=== PATIENT | male | born 1950 | race Caucasian/White ===

== ENCOUNTER 2023-05-14 09:51 | Outpatient (OUT) | payer OTHER, SELFPAY ==
[2023-05-14 10:29] LABS: Basophils Absolute Auto 0.1 10^3/uL (0.0-0.1); Basophils Percent Auto 1.1 % (0.2-2.0); Eosinophils Absolute Auto 0.5 10^3/uL (0.0-0.7); Eosinophils Percent Auto 7.2 % (0.9-7.0); Hematocrit 49.5 % (42.0-54.0); Hemoglobin 16.4 g/dL (14.0-18.0); Immature Granulocytes Abs Auto 0.03 10^3/uL (0.00-0.03); Immature Granulocytes Pct Auto 0.5 % (0.0-0.5); Lymphocytes Absolute Auto 1.9 10^3/uL (1.2-3.8); Lymphocytes Percent Auto 28.4 % (20.5-60.0); Mean Corpuscular HGB Conc 33.1 g/dL (29.9-35.2); Mean Corpuscular Hemoglobin 31.5 pg (25.9-34.0); Mean Corpuscular Volume 95.2 fL (80.0-94.0); Mean Platelet Volume 10.7 fL (9.5-13.5); Monocytes Absolute Auto 0.7 10^3/uL (0.3-0.8); Monocytes Percent Auto 10.9 % (1.7-12.0); Neutrophils Absolute Auto 3.4 10^3/uL (1.4-6.5); Neutrophils Percent Auto 51.9 % (43.0-75.0); Platelet Count 198 10^3/uL (150-450); Red Cell Distribution Width 13.5 % (11.0-15.0); White Blood Count 6.5 10^3/uL (4.0-11.0)
[2023-05-14 10:40] LABS: Estimated Average Glucose 120 mg/dL; Glycohemoglobin A1C 5.8 % (4.5-6.2)
[2023-05-14 10:51] LABS: Alanine Aminotransferase 24 U/L (16-63); Albumin Globulin Ratio 0.8; Albumin Level 3.5 g/dL (3.4-5.0); Alkaline Phosphatase 100 U/L (46-116); Anion Gap 10.5; Aspartate Amino Transferase 16 U/L (15-37); BUN Creatinine Ratio 17.1; Bilirubin Direct 0.2 mg/dL (0.0-0.2); Bilirubin Total 0.7 mg/dL (0.2-1.0); Calcium 9.4 mg/dL (8.5-10.1); Carbon Dioxide 28.5 mmol/L (21.0-32.0); Chloride 105 mmol/L (98-107); Chol HDL Ratio 2.8; Cholesterol 133 mg/dL (<=200); Estimated GFR (African America 58 (>=60); Estimated GFR (Non-African Ame 48 (>=60); Globulin 4.2 g/dL; Glucose 170 mg/dL (74-106); HDL Cholesterol 47 mg/dL (40-60); LDL Cholesterol Calculated 72.2 mg/dL; Sodium 139 mmol/L (136-145); Thyroid Stimulating Hormone 0.526 uIU/mL (0.358-3.740); Total Protein 7.7 g/dL (6.4-8.2); Triglycerides 69 mg/dL (<=150); VLDL CHOLESTEROL 13.8 mg/dL
== END 2023-05-14 09:52 | disposition home or self-care (01) ==
LOC: LAB 09:57
PROVIDERS: PCP Family Medicine; Visit Provider Family Medicine
DX: I10 Essential (primary) hypertension (principal); E78.5 Hyperlipidemia, unspecified; R73.03 Prediabetes; Z12.5 Encounter for screening for malignant neoplasm of prostate; E66.9 Obesity, unspecified; Z51.81 Encounter for therapeutic drug level monitoring; Z79.899 Other long term (current) drug therapy
CPT/HCPCS: 36415; 80048; 80061; 80076; 83036; 84443; 85025; G0103

== ENCOUNTER 2023-05-26 09:33 | Outpatient (OUT) | payer OTHER, SELFPAY ==
--- NOTE | 2023-05-26 09:40 | XR_ITS ---
The [address] [address] Patient Name: ALEXIS CLARK MRN: [id number] date: 1950 Sex: M Assigned Patient Location: RAD Current Patient Location: RAD Accession/Order Number: [id number] Exam Date: 05/26/2023 09:49 Report Date: 05/26/2023 10:19 At the request of: JUVENAL LOZANO Procedure: XR chest 2V EXAM: XR chest 2V HISTORY: Correction Current Use Of Amiodarone Z79.899 COMPARISON: None. TECHNIQUE: PA and lateral views of the chest. FINDINGS: The cardiomediastinal silhouette is normal. Right middle lobe opacity. There is no pneumothorax. No pleural effusion is noted. The osseous structures are intact. XR/XR chest 2V IMPRESSION: Right middle lobe atelectasis and/or developing pneumonia. Clinical correlation is recommended. Electronically authenticated by: CYNTHIA RESENDEZ Date: 05/26/2023 10:19
== END 2023-05-26 09:34 | disposition home or self-care (01) ==
LOC: RAD 09:35
PROVIDERS: PCP Family Medicine; Visit Provider Internal Medicine Cardiovascular Disease
DX: Z79.899 Other long term (current) drug therapy (principal); Z51.81 Encounter for therapeutic drug level monitoring
CPT/HCPCS: 71046

== ENCOUNTER 2023-06-04 09:40 | Outpatient (OUT) | payer OTHER, SELFPAY ==
--- NOTE | 2023-06-04 10:19 | CA_ITS ---
Patient: ALEXIS CLARK Exam Date: 06/04/2023 : 1950 Gender:M Ordering : LIDIA CORREIA Admission #: [id number] Family : DR KADE TRUJILLO . Order #: [id number] CLICK HERE TO VIEW EXAM ECHOCARDIOGRAM REPORT PROCEDURE: CA ECHO DOPPLER COMPLETE INDICATIONS: Aortic aneurysm, h/o atrial fibrillation - ablation, pacemaker, hypertension COMPARISON: None. DESCRIPTION: COMPLETE ECHOCARDIOGRAM Real-time transthoracic echocardiography with 2D, M-mode, spectral and color flow Doppler performed. QUALITY: Technical quality was good. LEFT VENTRICLE: Normal chamber size. Moderate concentric left ventricular hypertrophy. Normal systolic function. LV EF: Normal left ventricular ejection fraction, (>55%). DIASTOLIC: Normal diastolic function. ATRIAL SEPTUM: LEFT ATRIUM: Normal chamber size. RIGHT ATRIUM: Normal chamber size. RIGHT VENTRICLE: Normal chamber size. Normal systolic function. Pacer wire present. TRICUSPID VALVE: Normal mobility and thickness. No stenosis with mild regurgitation. No evidence of pulmonary hypertension. RVSP 24 mmHg MITRAL VALVE: Normal mobility and thickness. No evidence of mitral valve stenosis. Mild mitral annular calcification. Trivial mitral regurgitation. AORTIC VALVE: Normal trileaflet appearance. No visible sclerosis. Normal leaflet mobility. No evidence of aortic valve stenosis. Mild aortic regurgitation. AORTIC ROOT: Aortic root is moderately dilated measuring 4.4 cm. Moderately dilated ascending aorta (4.9 cm). PULMONIC VALVE: Normal thickness and mobility. No stenosis. Trivial regurgitation. PERICARDIUM: No evidence of pericardial effusion. IVC: Not well visualized. PLEURA: CONCLUSION: 1. Moderate concentric left ventricular hypertrophy with normal systolic function. LVEF is 55 to 60%. 2. Normal right ventricular size with normal systolic function. 3. Mild aortic regurgitation. 4. Moderately dilated aortic root [4.4 cm] and ascending aorta [4.9 cm]. 5. Normal right-sided pressures. Adult Echocardiography Procedure Report Left Ventricle LVEDD (3.7 - 5.6 cm): 4.66 cm LVESD (2.2 - 4.0 cm): 3.54 cm LVIVS thickness (0.6 - 1.2 cm): 1.56 cm LVPW thickness (0.5 - 1.0 cm): 1.38 cm e': 0.08 m/s E - e': 4.92 LVOT Max Gradient: 2.90 mm[Hg] LVOT Area (cm2): 0.85 m/s Peak Velocity (LVOT): 0.85 m/s LVOT Diameter 2.51 cm Left Atrium LA Volume Index (2D A2C): 27.05 ml/m2 Left Atrium Systolic Dimension: 4.05 cm Mitral Valve MV E to A Ratio: 0.73 Mitral Valve A-Wave Peak Velocity: 0.56 m/s Mitral Valve E-Wave Peak Velocity: 0.40 m/s Right Ventricle Aorta AO Root Diam: 4.43 cm Ascending Ao Diam: 4.24 cm Aortic Valve AoV Area (Peak Fernando): 4.55 cm2, 4.55 cm2 Peak Velocity(Antegrade Flow): 0.93 m/s Peak Gradient(Antegrade Flow): 3.44 mm[Hg] Mean Velocity(Antegrade Flow): 0.65 m/s Mean Gradient(Antegrade Flow): 1.93 mm[Hg] Velocity Time Integral: 19.74 cm Tricuspid Valve Peak Velocity (Regurgitant Flow): 2.30 m/s, 2.24 m/s, 2.29 m/s Pulmonic Valve Peak Velocity: 1.13 m/s Peak Gradient: 5.33 mm[Hg], 4.97 mm[Hg] Right Atrium Dictated by: Wili Comer M.D. on 06/05/2023 at 18:07 Approved by: Wili Comer M.D. on 06/05/2023 at 18:12
== END 2023-06-04 09:41 | disposition home or self-care (01) ==
LOC: CARD 09:41
PROVIDERS: PCP Family Medicine; Visit Provider Nurse Practitioner
DX: I77.810 Thoracic aortic ectasia (principal); Z98.890 Other specified postprocedural states; Z86.79 Personal history of other diseases of the circulatory system; I35.1 Nonrheumatic aortic (valve) insufficiency; I51.7 Cardiomegaly
CPT/HCPCS: 93306

== ENCOUNTER 2023-07-09 07:18 | Outpatient (OUT) | payer OTHER, SELFPAY ==
--- NOTE | 2023-07-09 07:36 | CT_ITS ---
The [address] [address] Patient Name: ALEXIS CLARK MRN: [id number] date: 1950 Sex: M Assigned Patient Location: LAB Current Patient Location: LAB Accession/Order Number: [id number] Exam Date: 07/09/2023 08:00 Report Date: 07/09/2023 08:56 At the request of: NON-STAFF PHYSICIAN Procedure: CT angio chest CT angio chest, 07/09/2023 8:00 AM EST INDICATION: Ascending Aorta Dilation I77.810 COMPARISON: This study was compared to the prior x-rays of the chest dated 05/26/2023 and 07/15/2019 TECHNIQUE: Axial low-dose images of 1 millimeters are obtained from the thoracic outlet with contrast . 3-D MIP images were obtained. Dose reduction techniques were achieved by using automated exposure control and/or adjustment of mA and/or kV according to patient size and/or use of iterative reconstruction technique. FINDINGS: Left-sided cardiac device with its tips within the right atrium and right ventricle are noted. Bilateral thyroid lesions up to 1.8 cm in the left lobe. The ascending aorta at the level of pulmonary bifurcation measures 5 x 4.8 cm, the descending aorta measures 2.8 cm. The main pulmonary artery measures 2.6 cm. No abnormality of the aortic arch is noted. There is no dissection. 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 2.3 cm lesion in the right lower lobe adjacent to pleural plaques likely round atelectasis. Linear opacities within the lower lobes likely atelectasis. The central tracheobronchial tree is unremarkable. No mediastinal lymph node enlargement by size criteria is noted. No pleural or pericardial effusion is noted. There is cholelithiasis without pericholecystic fluid or wall thickening. The visualized portions of the solid abdominal organs are unremarkable. Bone: There is no suspicious osteolytic or osteoblastic lesion. Flowing osteophytes in thoracic spine suggesting of diffuse idiopathic skeletal hyperostosis. CT/CT angio chest IMPRESSION: Ascending aortic aneurysm measuring 5 cm. No evidence of dissection. 2.3 cm lung lesion in the right lower lobe adjacent to pleural plaques likely a round atelectasis. However, follow up CT in 6 months is recommended to ensure stability and confirm the diagnosis. Bilateral thyroid lesions up to 1.8 cm. Given the age of the patient and size of the nodule, follow-up with ultrasound of the thyroid is recommended per [employer]. Electronically authenticated by: PHILL MIGUEL Date: 07/09/2023 08:56
[2023-07-09 07:48] LABS: Estimated GFR (African America >60 (>=60); Estimated GFR (Non-African Ame 53 (>=60)
== END 2023-07-09 07:19 | disposition home or self-care (01) ==
PROVIDERS: PCP Family Medicine
DX: I77.810 Thoracic aortic ectasia (principal); I71.21 Aneurysm of the ascending aorta, without rupture; E07.9 Disorder of thyroid, unspecified
CPT/HCPCS: 36415; 71275; 82565; Q9967

== ENCOUNTER 2025-01-07 12:41 | Outpatient (OUT) | payer MEDICARE, SELFPAY ==
--- OUTSIDE RECORDS SUMMARY | 2025-01-07 12:59 | XMS_ITS | CCD ---
Author Organization [facility] Care Team Providers Care Bricklayer'S Assistant Name Role Phone GIORGI DAVIS Attending Unavailable BLAKE, GIORGI Admitting Unavailable NADERER, ERIC Primary Care Unavailable NADERER, ERIC Referring Unavailable BLAKE, GIORGI Admitting Unavailable BLAKE, GIORGI Attending Unavailable NADERER, ERIC Primary Care Unavailable NADERER, ERIC Referring Unavailable BLAKE, GIORGI Admitting Unavailable BLAKE, GIORGI Attending Unavailable SMITH, LADI Primary Care Unavailable SMITHLADI Referring Unavailable BLAKE, GIORGI Attending Unavailable NADERER, ERIC Primary Care Unavailable NADERER, ERIC Referring Unavailable BLAKE, GIORGI Admitting Unavailable NADERER, DR ERIC Wheeler Primary Care Unavailable FAWWASHAIKH George Attending Unavailable FAWWASHAIKH George Admitting Unavailable NADERER, DR ERIC Wheeler Primary Care Unavailable NAFISA CLEVELAND Attending Unavailable CLEVELAND, NAFISA Admitting Unavailable CLEVELAND, NAFISA Attending Unavailable CLEVELAND, NAFISA Admitting Unavailable NADERER, DR ERIC Wheeler Primary Care Unavailable NADERER, DR ERIC Wheeler Primary Care Unavailable NAFISA CLEVELAND Attending Unavailable NAFISA CLEVELAND Admitting Unavailable NADERER, DR ERIC Wheeler Primary Care Unavailable NAFISA CLEVELAND Attending Unavailable NAFISA CLEVELAND Admitting Unavailable NADERER, DR ERIC Wheeler Primary Care Unavailable NAFISA CLEVELAND Attending Unavailable NAFISA CLEVELAND Admitting Unavailable MOUKARBEL, DR LOPEZ Consulting Unavailable NADERER, DR ERIC Wheeler Primary Care Unavailable MOUKARBEL, DR LOPEZ Attending Unavailable MOUKARBEL, DR LOPEZ Admitting Unavailable ZIEBER, DR JOSHUA Goldberg Consulting Unavailable NADERER, DR ERIC Wheeler Primary Care Unavailable ROBERTO ELIZABETH Attending Unavailable GLENNROBERTO SWEENEY Admitting Unavailable GLENNROBERTO DUNAWAY Consulting Unavailable ROBERTO ELIZABETH Consulting Unavailable NADERER, DR ERIC Wheeler Primary Care Unavailable ROBERTO ELIZABETH Attending Unavailable ROBERTO ELIZABETH Admitting Unavailable MOUKARBEL, DR LOPEZ Consulting Unavailable NADERER, DR BRAUN A Primary Care Unavailable MOTREY, DR LOPEZ Attending Unavailable AARON, DR LOPEZ Admitting Unavailable NADOMAYRA, DR BRAUN A Primary Care Unavailable CRISTOFER, NAFISA Attending Unavailable CRISTOFER, NAFISA Admitting Unavailable NADERER, DR BRAUN A Primary Care Unavailable CRISTOFER, NAFISA Attending Unavailable CRISTOFER, NAFISA Admitting Unavailable NADERER, DR ERIC Wheeler Primary Care Unavailable CRISTOFER, NAFISA Attending Unavailable CRISTOFER, NAFISA Admitting Unavailable NADEREYusuf, DR ERIC Wheeler Primary Care Unavailable CIELO, Attending Unavailable CIELO, Admitting Unavailable NADERER, DR ERIC Wheeler Primary Care Unavailable FAFINESSE, Attending Unavailable SHAIKH BUCK Admitting Unavailable NADEREYusuf, DR ERIC Wheeler Primary Care Unavailable CRISTOFER, NAFISA Attending Unavailable CRISTOFER, NAFISA Admitting Unavailable Giorgi Davis MD Unavailable Eric Trujillo MD Primary Care Provider ERIC TRUJILLO Attending Unavailable GIORGI DAIVS Referring Unavailable GIORGI DAVIS Referring Unavailable Medications Current Medications Medication Drug Class(es) Dates Sig (Normalized) Sig (Original) amLODIPine 5 mg oral tablet (3 sources) Dihydropyridine Calcium Channel Luiz Start: 03-01-2024 take 1 tablet by mouth once daily amLODIPine (Norvasc) 5 MG tablet Indications: Essential (primary) hypertension (CMS/HCC) TAKE 1 TABLET BY MOUTH DAILY 90 tablet 3 03/01/2024 Active atorvastatin 40 mg oral tablet (3 sources) HMG-CoA Reductase Inhibitor Start: 03-01-2024 take 1 tablet by mouth at bedtime atorvastatin (Lipitor) 40 MG tablet Indications: Hyperlipidemia, unspecified (CMS/HCC) TAKE 1 TABLET BY MOUTH AT BEDTIME 90 tablet 3 03/01/2024 Active carvedilol 12.5 mg oral tablet (3 sources) alpha-Adrenergic Luiz, beta-Adrenergic Luiz Start: 03-01-2024 take 1 tablet by mouth twice daily carvedilol (Coreg) 12.5 MG tablet Indications: Essential (primary) hypertension (CMS/HCC) TAKE 1 TABLET BY MOUTH TWICE DAILY 180 tablet 3 03/01/2024 Active lisinopril 10 mg oral tablet (3 sources) Angiotensin Converting Enzyme Inhibitor Start: 03-01-2024 take 1 tablet by mouth once daily lisinopril 10 MG tablet Indications: Essential (primary) hypertension ([facility]) TAKE 1 TABLET BY MOUTH DAILY 90 tablet 3 03/01/2024 Active rivaroxaban 15 mg oral tablet (2 sources) Factor Xa Inhibitor Start: 11-01-2024 End: 11-01-2025 rivaroxaban (Xarelto) 15 MG tablet Take 15 mg by mouth 11/01/2024 11/01/2025 Active Problems Active Problems Problem Classification Problem Date Documented Da te Episodic/Chronic Aortic; peripheral; and visceral artery aneurysms (8 sources) Thoracic aortic ectasia; Translations: [Thoracic aortic aneurysm, without rupture] Onset: 03-22-2021 Chronic Cardiac dysrhythmias (13 sources) Unspecified atrial fibrillation; Translations: [Paroxysmal atrial fibrillation] Onset: 04-20-2021 Chronic Chronic kidney disease (4 sources) Chronic kidney disease stage 3A ; Translations: [CKD stage 3a, GFR 45-59 ml/min ([facility])] Onset: 12-29-2024 12-29-2024 Chronic Conduction disorders (2 sources) Encounter for adjustment and management of automatic implantable cardiac defibrillator; Translations: [Encounter for adjustment and management of automatic implantable cardiac defibrillator] Onset: 07-06-2024 Chronic Congestive heart failure; nonhypertensive (4 sources) Chronic systolic heart failure; Translations: [Chronic systolic (congestive) heart failure] Onset: 12-29-2024 12-29-2024 Chronic Diabetes mellitus without complication (4 sources) Prediabetes; Translations: [Prediabetes] Onset: 12-29-2024 12-29-2024 Episodic Disorders of lipid metabolism (4 sources) Dyslipidemia; Translations: [Hyperlipidemia, unspecified] Onset: 12-29-2024 12-29-2024 Chronic Essential hypertension (4 sources) Essential hypertension; Translations: [Essential (primary) hypertension] Onset: 05-26-2023 12-29-2024 Chronic Heart valve disorders (1 source) 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; Translations: [RHEUMATIC D/O AORTIC TRICUSPID VALV] Onset: 10-09-2021 Chronic Other aftercare (5 sources) Encounter for therapeutic drug level monitoring; Translations: [ENC THERAPEUTC DRUG LEVL MONITORING] Onset: 07-26-2021 Episodic Other aftercare (1 source) USP (current) use of anticoagulants; Translations: [PENITENTIARY CURRNT USE ANTICOAGULANTS] Onset: 12-24-2021 Episodic Other aftercare (4 sources) Long-term current use of drug therapy; Translations: [Other intermodal customer service (current) drug therapy] Onset: 12-29-2024 12-29-2024 Episodic Other nutritional; endocrine; and metabolic disorders (4 sources) Obesity caused by energy imbalance; Translations: [Class 1 obesity due to excess calories with serious comorbidity and body mass index (BMI) of 31.0 to 31.9 in adult] Onset: 12-29-2024 12-29-2024 Chronic Samantha-; endo-; and myocarditis; cardiomyopathy (except that caused by tuberculosis or sexually transmitted disease) (2 sources) Cardiomyopathy; Translations: [Cardiomyopathy, unspecified] Onset: 05-26-2023 12-29-2024 Chronic Past or Other Problems Problem Classification Problem Date Documented Da te Episodic/Chronic Cancer of prostate (2 sources) History of malignant neoplasm of prostate; Translations: [Personal history of malignant neoplasm of prostate] Onset: 05-26-2023 12-29-2024 Episodic Mood disorders (2 sources) Mood disorders Onset: 12-29-2024 12-29-2024 Results Test Name Value Interpretation Reference Range Facility ECHOCARDIO M/2D COMPLETEon 0 10-03-2021 ECHOCARDIO M/2D COMPLETE Patient: ALEXIS BAEZ Exam Date: 10/03/2021 : 1950 Gender:M Ordering : DR JOHN WALKER M.D. Admission #: [id number] Family : DR ERIC TRUJILLO . Order #: [id number] CLICK HERE TO VIEW EXAM ECHOCARDIOGRAM REPORT PROCEDURE: CARDIO PULMONARY ECHOCARDIO M/2D COMP INDICATIONS: Ascending aorta dilatation, Pacemaker, S/P Atrial fibrillation ablation, COMPARISON: None. DESCRIPTION: COMPLETE ECHOCARDIOGRAM Real-time transthoracic echocardiography with 2D, M-mode, spectral and color flow Doppler performed. QUALITY: Technical quality was good. 71 225# 142/90 HR 63 LEFT VENTRICLE: Normal chamber size. Proximal septal hypertrophy (sigmoid septum). LV EF: Global left ventricular systolic function is normal. The interventricular systolic function is abnormal in motion likely related to paced rhythm. Visual EF 55-60%. DIASTOLIC: Grade I diastolic dysfunction. ATRIAL SEPTUM: Inadequately seen. LEFT ATRIUM: Mild dilatation. RIGHT ATRIUM: Mild dilatation. RIGHT VENTRICLE: Moderate dilatation. Normal right ventricular systolic function. Pacer wire present. TRICUSPID VALVE: Normal mobility and thickness. No stenosis with mild regurgitation. No evidence of pulmonary hypertension. RVSP 30 mmHg MITRAL VALVE: Normal mobility and thickness. No evidence of mitral valve stenosis. Trivial mitral regurgitation. AORTIC VALVE: Normal trileaflet appearance. No evidence of aortic valve stenosis. Mild aortic regurgitation. AORTIC ROOT: Aortic sinuses are [id number] enlarged. The ascending aorta is severely enlarged at 5.0 cm, as previously seen. PULMONIC VALVE: Normal thickness and mobility. No stenosis. Trivial regurgitation. PERICARDIUM: Anterior free space; trivial effusion versus fat pad. IVC: Collapses with inspirations. IVC is normal in size. CONCLUSION: Global left ventricular systolic function is normal; visually estimated ejection fraction is 55 to 60%. Abnormal septal motion. Grade 1, mild diastolic dysfunction. Mild biatrial enlargement. Right ventricle is moderately dilated with normal systolic function. Mild tricuspid regurgitation. Mild aortic valve regurgitation. The aortic sinuses are mild to moderately enlarged. The ascending aorta is severely enlarged at 5.0 cm as previously seen. Anterior free space; trivial effusion versus fat pad. Adult Echocardiography Procedure Report Left Ventricle Left Atrium Mitral Valve Right Ventricle Aorta Aortic Valve Peak Velocity (Antegrade Flow): 1.09 m/s, 1.09 m/s AoV Area (Peak Fernando): 2.90 cm2, 2.90 cm2 Peak Velocity(Antegrade Flow): 1.09 m/s Peak Gradient(Antegrade Flow): 4.77 mm[Hg] Tricuspid Valve Peak Velocity (Regurgitant Flow): 2.38 m/s, 2.58 m/s, 2.51 m/s, 2.51 m/s Pulmonic Valve PV Max Fernando (0.6 - 0.9 m per sec): 0.96 m/s PV Max Gradient: 3.68 mm[Hg] Right Atrium Dictated by: Gisell Vidal M.D. on 10/04/2021 at 10:48 Approved by: Gisell Vidal M.D. on 10/04/2021 at 10:52 Normal [facility] Cardiovascular Lab Reporton 09-20-2021 Cardiovascular Lab Report [facility]: [id number] Physician: Giorgi Davis MD Department of Service Date: 09/20/2021 Medicine Birthdate: 1950 Division of Room #: Cardiology Adult Cardiovascular Services [address] [place] [address] Cardiovascular Laboratory Report ATRIAL FIBRILLATION ABLATION PROCEDURE NOTE DATE OF PROCEDURE: 09/20/2021 PERFORMING PHYSICIAN: Dr. Giorgi Davis CONSENT: Patient NAME OF THE PROCEDURE: Pulmonary Vein Isolation and Comprehensive EP study. INDICATIONS FOR PROCEDURE: 1. Persistent atrial fibrillation non responsive to pharmacologic therapy. PROCEDURES PERFORMED: 1. Sonosite guided venous access as noted below and images stored. 2. Comprehensive EP study and catheter ablation for persistent atrial fibrillation through the pulmonary vein isolation technique. This includes right atrial recording and pacing, His bundle recording and right ventricular recording and pacing. 3. Intracardiac EP 3D mapping. 4. Intracardiac echocardiogram 5. Left atrial and coronary sinus recording and pacing to assess ablation results. 6. Left heart pressure measurements and LV pacing and recording. 7. Induction of arrhythmia and testing of ablation results using intravenous adenosine infusion. 8. Fluroscopy. 9. Pre and Post ablation device thresholds. FLUROSCOPY: 4 minutes 36 seconds/ 72 mGy. PROCEDURE NOTE: 71-year-old gentleman with ischemic cardiomyopathy, who has a dual-chamber ICD, who was noted to have atrial fibrillation and flutter. Given the fact that he had a high rate, decision was made to continue with atrial fibrillation ablation. On the day of presentation, he was noted to be in atrial flutter. Risks, benefits and alternatives of the procedure were discussed with the patient and family who agreed to proceed. Please refer to my consult note for details of the discussion and of indications. The patient was brought to the EP lab and a procedural pause was performed identifying the patient, the procedure. GHASSAN was performed to rule out LA clot. Thereafter, we checked the atrial thresholds and at baseline the ventricular threshold was 1 V at 0.5 millisecond. Atrial threshold could not be checked because of the flutter. Both the groins were then prepared and draped. Ultrasound was used to determine the course and patency of the femoral veins on both sides and they were noted to be patent and the image stored in PACS. After infiltration with 1% lidocaine, 4 venous sheaths were placed in the right as noted below and a radial arterial line was placed by Anesthesia team. RFV: 8Fx4 ThermoCool SF Bi-Directional over SL1/ Vizigo, SL1:Pentaray, ICE catheter. 8Fx1 CS Catheter (EZ Steer) 10,000U Heparin bolus was given followed by continuous intravenous drip to target ACT around 350. An intracardiac ultrasound catheter was inserted into the right atrium to examine the right atrial anatomy, atrial septum, pulmonary vein anatomy and to monitor for pericardial effusion and guide transseptal access. At baseline, there was no pericardial effusion and no SANTOS clot. Patient was in atrial flutter. Since we noted that the patient had a dilated aortic root and the RA area was very narrow for us to maneuver towards the valve aspect, hence, I could not perform entrainment easily and I decided to proceed with ablation. Using ICE, the His and IVC junctions were marked with 3D CARTO mapping software. Vizigo sheath was brought to the right side. Ablation was performed on the CTI line starting at the tricuspid valve aspect. 30-35W was utilized and I extended the ablation from the TV to the IVC aspect. During this time, flutter terminated. lesions was given and bidirectional block was performed with medial to lateral pacing with a timing of 160ms. Differential pacing confirmed block. I proceeded to perform PVI. Esophagus was mapped using the [employer] 3D mapping software and noted to be towards the left sided veins. Double transseptal access technique was used to cross to the left side. Following the first transeptal access, which was achieved via puncture of the thinner aspect of the septum using Armando needle, Pentaray catheter was placed in the left atrium. LA pressures were noted to 18/5 mmHg at baseline and with 600ms pacing there was 2: 1 block. LV pacing revealed no VA conduction. A second transseptal access was then achieved and SL1 sheath was exchanged over a wire to 8.5F Vizigo sheath. Pulmonary vein and left atrial anatomic mapping were performed using a 3-D CARTO computer-based mapping system while atrial pacing was performed as patient had profound bradycardia. Identification of the pulmonary vein ostia was assisted by the left atrial signals on the ablation catheter, the ICE catheter and the Pentaray catheter placed in the in (more content not included)... Normal [facility] POC GLUCOSE LABon 09-20-2021 Glucose [Mass/Vol] 97 mg/dL Normal 70-100 [facility] Comment on above: Performed By: #### [id number] #### [facility] [address] [facility]. [address] PROTHROMBIN TIMEon INR Coag (PPP) [Relative time] 1.29 {INR} High 0.91-1.16 [facility] Comment on above: Result Comment: ACCC P RECOMMENDED INR FOR WARFARIN THERAPY ------ ------- CONDITION INR PROPHYLAXIS OF VENOUS THROMBOSIS 2-3 (HIGH-RISK SURGERY) TREATMENT OF VENOUS THROMBOSIS 2-3 TREATMENT OF PULMONARY EMBOLISM 2-3 PREVENTION OF SYSTEMIC EMBOLISM: 2-3 ACUTE MYOCARDIAL INFARCTION TISSUE HEART VALVES VALVULAR HEART DISEASE ATRIAL FIBRILLATION RECURRENT SYSTEMIC EMBOLISM MECHANICAL HEART VALVE 2.5-3.5 FROM: ORAL ANTICOAGULANTS. MECHANISM OF ACTION, CLINICAL EFFECTIVENESS, AND OPTIMAL THERAPEUTIC RANGE. CHEST 1995;108:231S-246S. Performed By: #### 5 [id number] #### [facility] [address] [facility] [place] [address], [facility] PT Coag (PPP) [Time] 16.1 s High 12.3-14.8 [facility] Comment on above: Result Comment: ALL RESULTS MUST BE INTERPRETED WITH RESPECT TO BLOOD DRAWING ARTIFACT OR DILUTION ERROR OF ANTICOAGULANT AT THE TIME OF SAMPLING. Performed By: #### [id number] #### [facility] [address] [facility] [place] [address], [facility] BASIC METABOLIC PANELon 05-25 Calcium [Mass/Vol] 8.8 mg/dL Normal 8.6-10.3 [facility] Comment on above: Performed By: #### 0 [id number] #### [facility] [address] [place] [address], [facility] Chloride [Moles/Vol] 105 mmol/L Normal 98-107 [facility] Comment on above: Performed By: #### 0 [id number] #### [facility] [address] [place] [address], [place] CO2 [Moles/Vol] 24 mmol/L Normal 21-31 [facility] Comment on above: Performed By: #### 0 [id number] #### [facility] [address] [place] [address], [facility] Creatinine [Mass/Vol] 1.31 mg/dL High 0.70-1.30 [facility] Comment on above: Performed By: #### 0 [id number] #### [facility] [address] [place] [address], [place] eGFR- non- 54 ml/min/1.73sq m Abnormal >60 [facility] Comment on above: Performed By: #### 0 [id number] #### [facility] [address] [place] [address], [facility] GFR/1.73 sq M.predicted among blacks MDRD (S/P/Bld) [Vol rate/Area] mL/min/{1.73_m2} Normal >60 [facility] Comment on above: Performed By: #### 0 [id number] #### [facility] [address] [place] [address], [place] Glucose [Mass/Vol] 104 mg/dL High 70-100 [facility] Comment on above: Performed By: #### 0 [id number] #### [facility] [address] [place] [address], [place] Potassium [Moles/Vol] 5.3 mmol/L High 3.5-5.1 [facility] Comment on above: Performed By: #### 0 [id number] #### [facility] [address] [place] [address], [facility] Sodium [Moles/Vol] 137 mmol/L Normal 136-145 [facility] Comment on above: Performed By: #### 0 [id number] #### [facility] [address] [place] [address], [facility] Urea nitrogen [Mass/Vol] 24 mg/dL Normal 7-25 [facility] Comment on above: Performed By: #### 0 [id number] #### [facility] [address] [place] [id number], [facility] CBC COMPLETE BLOOD COUNTon Erythrocyte distribution width (RBC) [Ratio] 13.9 % Normal 11.5-15.0 [facility] Comment on above: Performed By: #### 5 [id number] #### [facility] [address] [place] [address], [facility] Hematocrit (Bld) [Volume fraction] 50.2 % High 39.0-50.0 [facility] Comment on above: Performed By: #### 5 [id number] #### [facility] [address] [place] [address], [facility] Hemoglobin (Bld) [Mass/Vol] 17.0 g/dL Normal 13.0-17.0 [facility] Comment on above: Performed By: #### 5 [id number] #### [facility] [address] [place] [address], [facility] MCH (RBC) [Entitic mass] 31.3 pg Normal 27.0-33.0 [facility] Comment on above: Performed By: #### 5 [id number] #### [facility] [address] [place] [address], [facility] MCHC (RBC) [Mass/Vol] 33.9 g/dL Normal 32.0-35.0 [facility] Comment on above: Performed By: #### 5 [id number] #### [facility] [address] MCV (RBC) [Entitic vol] 92.3 fL Normal 82.0-98.0 [facility] Comment on above: Performed By: #### 5 [id number] #### [facility] [address] Nucleated RBC/100 WBC (Bld) [Ratio] 0 % Normal 0-0 [facility] Comment on above: Performed By: #### 5 [id number] #### [facility] [address] PLAT CNT 181 10*3/uL Normal 150-400 [facility] Comment on above: Performed By: #### 5 [id number] #### [facility] [address] RBC (Bld) [#/Vol] 5.44 10*6/uL Normal 4.20-5.70 [facility] Comment on above: Performed By: #### 5 [id number] #### [facility] [address] WBC (Bld) [#/Vol] 7.66 10*3/uL Normal 4.00-10.60 [facility] Comment on above: Performed By: #### 5 [id number] #### [facility] [address] Cardiovascular Lab Reporton 06-11-2021 Cardiovascular Lab Report [facility] [id number] Physician: Giorgi Davis MD Department of Service Date: 06/11/2021 Medicine Birthdate: 1950 Division of Room #: CC Cardiology Adult Cardiovascular Services [place] [id number] Cardiovascular Laboratory Report DIRECT CARDIOVERSION PROCEDURE NOTE Date: 06/11/2021. Type of procedure: DC Cardioversion. Performed by: Giorgi Davis MD. Informed consent: Signed by patient. Indication: Afib. Preparation and technique: 71-year-old gentleman with a history of sinus node dysfunction with a dual-chamber pacemaker placed, who was noted to be in atrial fibrillation. He was loaded on Amio and brought for cardioversion. After an informed consent was obtained following a discussion with the patient where I explained the risk and benefit of the procedure that is not limited to skin espinosa, fluid in the lungs, heart attack, stroke, or even , though that is very rare. Patches were placed in anteroposterior direction. Following sedation with Versed 4mgand fentanyl 25mcg, GHASSAN ruled put SANTOS thrombus. Cardioversion with 360 joules in a synchronized DC cardioversion, converted him to Atrial paced ventricular sensed rhythm. Plan: Continue anticoagulation. Giorgi Davis MD Cardiac Electrophysiology Electronically Signed by: Giorgi Davis MD 06/12/2021 09:10 A Giorgi Davis MD Date Dict: 06/11/2021/12:09 P/Giorgi Davis MD Date Trans: 06/11/2021 12:24 P/christine [id number] cc: Eric Trujillo M.D. [address] [facility] [address] Normal [facility] POC SARS COV2 ANTIGEN NEGATI VEon 06-11-2021 POC SARS COV2 ANTIGEN NEG Negative Normal NEGATIVE [facility] Comment on above: Result Comment: Nega tive results from patients with symptom onset beyond seven days, should be treated presumptive and confirmation with a molecular assay, if necessary, for patient management, may be performed. Negative results do not rule out SARS-CoV-2 infection and should not be used as the sole basis for treatment or patient management decisions, including infection control decisions. Negative results should be considered in the context of a patient?s recent exposures, history and the presence of clinical signs and symptoms consistent with COVID-19. The [employer] COVID-19 Ag Card is a lateral flow immunoassay intended for the qualitative detection of nucleocapsid protein antigen from SARS-CoV-2 in direct nasal swabs from individuals within the first seven days of symptom onset. Testing is limited to laboratories certified under the Clinical Laboratory Improvement Amendments of 1988 (CLIA), 42 U.S.C. ???263a, that meet the requirements to perform moderate, high or waived complexity tests. This test is authorized for use at the Point of Care (POC), i.e., in patient care settings operating under a CLIA Certificate of Waiver, Certificate of Compliance, or Certificate of Accreditation. Performed By: #### 3 [facility] #### [facility] [address] [facility]. [address] FREE T4on 04-20-2021 Free T4 [Mass/Vol] 1.05 ng/dL Normal 0.78-2.19 [facility] Comment on above: Performed By: #### F T4 #### [facility] [address], [place] [address] Marline Valle TSHon 04-20-2021 TSH 0.118 uIU/mL Critically low 0.470-4.680 [facility] Comment on above: Performed By: #### T SH #### [facility] [address], [place] [address] Marline Valle TSH RANGE SEE BELOW Normal [facility] Comment on above: Result Comment: <0.3 4 UIU/ml HYPERTHYROID 0.34-5.60 UIU/ml EUTHYROID >5.60 UIU/ml HYPOTHYROID Performed By: #### T SH #### [facility] [address], [place] [address] Marline Valle CTA CHEST WO W CONon 021 CTA CHEST WO W CON EXAMINATION: CTA NAYLA ST WO W CON HISTORY: Ectasia of thoracic aorta COMPARISON: No relevant comparison available. TECHNIQUE: Multi-planar CT images were created with IV contrast. Axial, Coronal, and Sagittal images. Dose reduction techniques were achieved by using automated exposure control and/or adjustment of mA and/or kV according to patient size and/or use of iterative reconstruction technique. 3-D reconstruction was performed on a separate workstation. FINDINGS: VASCULATURE: No pulmonary embolism or abnormal opacity. LUNGS: No visible pulmonary disease. PLEURA: Thick, dense pleural plaques along the diaphragm margins bilaterally. A few thin partially calcified pleural plaques along the left lateral chest wall. JALEN: No mass or adenopathy. MEDIASTINUM: No mass or adenopathy. CARDIAC: No enlargement, pericardial effusion, or pericardial thickening. AORTA: Enlargement of the ascending aorta, 5.0 cm in diameter. Distal aortic arch is 3.0 cm in diameter. CHEST WALL: Left thyroid lobe contains a 2.1 cm hypodense mass versus colloid cyst. Cardiac pacer within left chest wall. No axillary mass or lymphadenopathy. BONES: No bone lesion or fracture. LIMITED ABDOMEN: Numerous small stones within the noninflamed gallbladder. Limited images of the upper abdomen. OTHER: Negative. IMPRESSION: 1. Aneurysmal dilation of the ascending aorta, 5.0 cm in diameter. 2. Bilateral pleural plaques, nonspecific but typically associated with the combination of smoking and asbestos exposure. 3. Left thyroid lobe 2.1 cm hypodense nodule versus cyst. Consider ultrasound evaluation. 4. Cholelithiasis. Electronically authenticated by: JOSHUA BARBOZA Date: 2021-04-09 07:53 Normal [facility] CREATININEon 04-06-2021 Creatinine [Mass/Vol] 1.39 mg/dL Critically high 0.66-1.25 [facility] Comment on above: Performed By: #### C AGNES #### [facility] [address] [address] Marline Tori EGFR-AF [place] >60 Normal >=[address] [facility] Comment on above: Performed By: #### C AGNES #### [facility] [address], [place] [address] Marline Tori EGFR-NON AF [place] 51 mL/min/1.73m2 Critically low >=60 [facility] Comment on above: Performed By: #### C AGNES #### [facility] [address], [place] [address] Marline Tori ECHOCARDIO M/2D COMPLETEon 0 03-21-2021 ECHOCARDIO M/2D COMPLETE Patient: ALEXIS BAEZ Exam Date: 03/21/2021 : 1950 Gender:M Ordering : ROBERTO ELIZABETH Admission #: [id number] Family : DR ERIC TRUJILLO . Order #: [id number] CLICK HERE TO VIEW EXAM ECHOCARDIOGRAM REPORT PROCEDURE: CARDIO PULMONARY ECHOCARDIO M/2D COMP INDICATIONS: Dilatation of aorta, Pacemaker COMPARISON: None. DESCRIPTION: COMPLETE ECHOCARDIOGRAM Real-time transthoracic echocardiography with 2D, M-mode, spectral and color flow Doppler performed. QUALITY: Technical quality was adequate. 71 220# 124/80 HR 76 LEFT VENTRICLE: Normal chamber size. Moderate concentric left ventricular hypertrophy. Global left ventricular hypokinesis. Unable to assess diastolic function. LV EF: Mildly reduced left ventricular ejection fraction, (40-45%). DIASTOLIC: Normal diastolic function. ATRIAL SEPTUM: LEFT ATRIUM: Moderate dilatation. RIGHT ATRIUM: Mild dilatation. RIGHT VENTRICLE: Normal chamber size. Right ventricular systolic function appears borderline reduced. Pacer wire present. TRICUSPID VALVE: Normal mobility and thickness. No stenosis with mild regurgitation. No evidence of pulmonary hypertension. RVSP 25 mmHg MITRAL VALVE: Mildly thickened with normal mobility. No evidence of mitral valve stenosis. Trace mitral regurgitation. AORTIC VALVE: Normal trileaflet appearance. No evidence of aortic valve stenosis. Aortic sinuses are mildly enlarged at 4.3 cm. Ascending aorta is moderately to severely enlarged at 5.0 cm. Mild aortic regurgitation. AORTIC ROOT: PULMONIC VALVE: Normal thickness and mobility. No stenosis. Trace regurgitation. PERICARDIUM: Trace pericardial effusion. IVC: Not well visualized. PLEURA: CONCLUSION: 1. Mildly reduced left ventricular systolic function, EF 40-45%. Global hypokinesis is noted. 2. Borderline reduced right ventricular systolic function. 3. Moderately to severely dilated ascending aorta, 5.0 cm. 4. Mild aortic and tricuspid regurgitation. 5. Normal right sided pressures. 6. Trace pericardial effusion. Adult Echocardiography Procedure Report Left Ventricle Left Atrium Mitral Valve Right Ventricle Aorta Aortic Valve Peak Velocity (Antegrade Flow): 0.84 m/s AoV Area (Peak Fernando): 2.90 cm2, 2.90 cm2 Peak Gradient(Antegrade Flow): 2.81 mm[Hg] Tricuspid Valve Peak Velocity (Regurgitant Flow): 2.11 m/s, 2.36 m/s, 2.30 m/s, 2.30 m/s Peak Velocity: 0.48 m/s, 0.63 m/s Pulmonic Valve PV Max Fernando (0.6 - 0.9 m per sec): 0.80 m/s PV Max Gradient: 2.54 mm[Hg] Right Atrium Dictated by: John Walker M.D. on 03/22/2021 at 11:28 Approved by: John Walker M.D. on 03/22/2021 at 11:39 Normal [facility] Vital Signs Date Time Vital Sign Value Performing Clinician Faci lity 12-29-2024 09:31-0400 Body height 179.1 cm Eric Trujillo MD Work Phone: [facility] 12-29-2024 09:31-0400 Body mass index (BMI) [Ratio] 31.1 kg/m2 Eric Trujillo MD Work Phone: [facility] 12-29-2024 09:31-0400 Body temperature 97.5 [degF] Eric Trujillo MD Work Phone: [facility] 12-29-2024 09:31-0400 Body weight 99.79 kg Eric Trujillo MD Work Phone: [facility] 12-29-2024 09:31-0400 Diastolic blood pressure 78 mm[Hg] Eric Trujillo MD Work Phone: [facility] 12-29-2024 09:31-0400 Heart rate 76 /min Eric Trujillo MD Work Phone: [facility] 12-29-2024 09:31-0400 Respiratory rate 20 /min Eric Trujillo MD Work Phone: [facility] 12-29-2024 09:31-0400 SaO2% (BldA) [Mass fraction] 96 % Eric Trujillo MD Work Phone: [facility] 12-29-2024 09:31-0400 Systolic blood pressure 132 mm[Hg] Eric Trujillo MD Work Phone: [facility] Healthcare Encounters Encounter Date Encounter Type Care Provider Facility Start: 01-04-2025 End: 01-04-2025 ambulatory GIORGI [facility] Start: 12-29-2024 End: 12-29-2024 Bamboo flowsheet Eric Trujillo MD Work Phone: [facility] Start: 12-29-2024 End: 12-29-2024 Bamboo flowsheet Eric Trujillo MD Work Phone: [facility] Start: 12-29-2024 End: 12-29-2024 Patient encounter procedure Eric Trujillo MD Work Phone: [facility] Work Phone: Start: 12-29-2024 End: 12-29-2024 Postop follow up visit related to original px Eric Trujillo MD Work Phone: [facility] Comment on above: Medicare annual well ness visit, subsequent (Primary Dx); Prediabetes; Essential hypertension (CMS/HCC); Dyslipidemia (CMS/HCC); CKD stage 3a, GFR 45-59 ml/min (CMS/HCC); Class 1 obesity due to excess calories with serious comorbidity and body mass index (BMI) of 31.0 to 31.9 in adult; Encounter for long-term current use of medication; Chronic HFrEF (heart failure with reduced ejection fraction) (CMS/HCC); Paroxysmal atrial fibrillation (CMS/HCC) Start: 12-29-2024 End: 12-29-2024 ambulatory REIC TRUJILLO Not Available Start: 07-06-2024 End: 07-06-2024 ambulatory [facility] Start: 05-21-2022 Telephone encounter No One (Historic al) Referring Physician Comment on above: External Referrals/r esources Start: 11-23-2021 End: 12-21-[address] ERIC TRUJILLO Facility:[facility] Start: 10-23-2021 End: 11-22-[address] ERIC TRUJILLO Facility:[facility] Start: 10-03-2021 End: 10-04-[address] JOHN WALKER Facility:[facility] Start: 09-25-2021 End: 10-22-[address] ERIC TRUJILLO Facility:[facility] Start: 09-20-2021 End: 09-21-2021 ambulatory GIORGI DAVIS Facility:[facility] Start: 09-05-2021 End: 09-06-2021 ambulatory GIORGI DAVIS Facility:[facility] Start: 08-28-2021 End: 09-24-[address] ERIC TRUJILLO Facility:[facility] Start: 07-25-2021 End: 08-24-[address] ERIC TRUJILLO Facility:[facility] Start: 06-26-2021 End: 07-24-[address] ERIC TRUJILLO Facility:[facility] Start: 06-11-2021 End: 06-12-2021 ambulatory GIORGI DAVIS Facility:[facility] Start: 05-25-2021 End: 06-22-[address] ERIC TRUJILLO Facility:[facility] Start: 05-08-2021 End: 05-28-2021 ambulatory GIORGI DAVIS Facility:[facility] Start: 04-27-2021 End: 05-25-[address] ERIC TRUJILLO Facility:[facility] Start: 04-20-2021 End: 04-21-[address] JOHN WALKER Facility:[facility] Start: 04-06-2021 End: 04-07-[address] JOSHUA BARBOZA Facility:[facility] Start: 03-26-2021 End: 04-25-[address] ERIC TRUJILLO Facility:[facility] Start: 03-22-2021 End: 03-23-2021 ambulatory ROBERTO ELIZABETH Facility:[facility] Start: 02-22-2021 End: 03-25-[address] ERIC TRUJILLO Facility:[facility] Start: 01-23-2021 End: 02-22-[address] ERIC TRUJILLO Facility:[facility] Start: 12-28-2020 End: 01-23-2021 ambulatory NAFISA CLEVELAND Facility:[facility] Plan of Treatment Date Care Activity Detail Author Start: 12-29-2025 Screening for malign ant neoplasm of colon Colorectal Cancer Screening [facility] Comment on above: Postponed from 04/23 (Patient Refused) Start: 07-04-2025 End: 07-04-2025 Patient encounter procedure 07/04/2025 8:00 AM EST Office Visit [facility] [address] [place] [id number] Eric Trujillo MD [address] [place] [address] [facility] Start: 04-25-2025 Influenza vaccination Influenz a Vaccine (Season Ended) [facility] Start: 12-29-2024 End: 12-29-2025 Basic metabolic 1998 panel - Serum or Plasma Basic metabolic panel Lab Routine CKD stage 3a, GFR 45-59 ml/min (CMS/HCC) Expected: 12/29/2024 (Approximate), Expires: 12/29/2025 [facility] Comment on above: Expected: 12/29/2024 (Approximate), Expires: 12/29/2025 Start: 12-29-2024 End: 12-29-2025 CBC W Auto Differential panel - Blood CBC and differential Lab Routine Encounter for long-term current use of medication Expected: 12/29/2024 (Approximate), Expires: 12/29/2025 [facility] Comment on above: Expected: 12/29/2024 (Approximate), Expires: 12/29/2025 Start: 12-29-2024 End: 12-29-2025 Hemoglobin A1c/Hemoglobin.total in Blood Hemoglobin A1c Lab Routine Prediabetes Expected: 12/29/2024 (Approximate), Expires: 12/29/2025 [facility] Work Phone: Comment on above: Expected: 12/29/2024 (Approximate), Expires: 12/29/2025 Start: 12-29-2024 End: 12-29-2025 Hepatic function 2000 panel - Serum or Plasma Hepatic function panel Lab Routine Encounter for long-term current use of medication Expected: 12/29/2024 (Approximate), Expires: 12/29/2025 [facility] Comment on above: Expected: 12/29/2024 (Approximate), Expires: 12/29/2025 Start: 12-29-2024 End: 12-29-2025 Lipid 1996 panel - Serum or Plasma Lipid panel Lab Routine Dyslipidemia (CMS/HCC) Expected: 12/29/2024 (Approximate), Expires: 12/29/2025 [facility] Comment on above: Expected: 12/29/2024 (Approximate), Expires: 12/29/2025 Start: 12-29-2024 End: 12-29-2025 Thyrotropin [Units/volume] in Serum or Plasma TSH Lab Routine Class 1 obesity due to excess calories with serious comorbidity and body mass index (BMI) of 31.0 to 31.9 in adult Expected: 12/29/2024 (Approximate), Expires: 12/29/2025 [facility] Comment on above: Expected: 12/29/2024 (Approximate), Expires: 12/29/2025 Start: 12-29-2024 End: 12-29-2024 Patient encounter procedure 12/29/2024 9:15 AM EDT Office Visit [facility] [address] [place] [address] Eric Trujillo MD [address] [place] [address] Arrived [facility] Comment on above: Arrived Start: 06-20-2024 Screening for malign ant neoplasm of colon [facility] Start: 2002 Pneumococcal Vaccine : 65+ Years (1 of 1 - PCV) Pneumococcal Vaccine: 65+ Years (1 of 1 - PCV) [facility] Start: 1971 Pneumococcal Vaccine : 65+ Years (1 of 2 - PCV) Pneumococcal Vaccine: 65+ Years (1 of 2 - PCV) [facility] Start: 1950 Medicare Annual Wellness (AWV) Medicare Annual Wellness (AWV) [facility] Start: 1950 Screening for malign ant neoplasm of colon [facility] Healthcare Payers Date Payer Category Payer Medicare (Managed Care) [employer] M [employer] ADVANTAGE [id number] 2024 Medicare [id number] 2022 Private Health Insurance [employer] adam [id number] 2019 Unknown [id number] 1959 Unknown [id number] 1959 Unknown [id number] 1950 Unknown [id number] 2.16.840.1.169769.3.579.2 .647 1950 Unknown [id number] 2.16.840.1.518341.3.579.2 .647 1950 Unknown [id number] 2.16.840.1.581472.3.579.2 .647 1952 Unknown [id number] 2.16840.1.791742.3.579.2 .647 1950 Unknown [id number] 2.16.840.1.322720.3.579.2 .593 1952 Unknown [id number] 2.16.840.1.830477.3.579.2 .593 1952 Unknown [id number] 2.16.840.1.203455.3.579.2 .593 1952 Unknown [id number] 2.16.840.1.735608.3.579.2 .593 1952 Unknown [id number] 2.16.840.1.033862.3.579.2 .593 1952 Unknown [id number] 2.16.840.1.207336.3.579.2 .593 1952 Unknown [id number] 2.16.840.1.643158.3.579.2 .593 1952 Unknown [id number] 2.16.840.1.627214.3.579.2 .593 1952 Unknown [id number] 2.16.840.1.952835.3.579.2 .593 1952 Unknown [id number] 2.16.840.1.393746.3.579.2 .593 1952 Unknown [id number] 2.16.840.1.477871.3.579.2 .593 1952 Unknown [id number] 2.16.840.1.755708.3.579.2 .593 1952 Unknown [id number] 2.16.840.1.958532.3.579.2 .593 1952 Unknown [id number] 2.16.840.1.229965.3.579.2 .593 1952 Unknown [id number] 2.16.840.1.343558.3.579.2 .593 1952 Unknown [id number] 2.16.840.1.657928.3.579.2 .593 1950 Unknown [id number] 2.16.840.1.134181.3.579.2 .1259 Social History Date Type Detail Facility Tobacco smoking stat [facility] Tobacco smoking consumption unknown [facility] Start: 1950 Sex Assigned At Not on file [facility] Start: 12-29-2024 Gender identity Not on file [facility] Start: 12-29-2024 Tobacco smoking stat [facility] Never smoked tobacco [facility] Start: 12-29-2024 Tobacco use and exposure Smokeless t obacco non-user [facility] Start: 12-29-2024 History of Social function [facility] Functional Status Date Assessment Result Facility 12-29-2024 Patient Health Quest ionnaire 2 item (PHQ-2) [Reported] [facility] History of Present illness Narrative 12-29-2024 Eric Trujillo MD - 12/29/2024 10:27 AM Ricardo Trujillo MD - 12/29/2024 10:27 AM Ricardo Trujillo MD - 12/29/2024 10:27 AM Ricardo Trujillo MD - 12/29/2024 10:27 AM EDT Note Date & Type Note Facility 12-29-2024 History of Presen t illness Narrative Associated Problem(s): Paroxysmal atrial fibrillation (CMS/HCC) In NSR. Continue medication. Associated Problem(s): Essential hypertension (CMS/HCC) BP controlled and monitor PRN. Associated Problem(s): Chronic HFrEF (heart failure with reduced ejection fraction) (CMS/HCC) Edema stable and follow with cardiology. Associated Problem(s): Medicare annual wellness visit, subsequent Due for labs. Discussed proper diet and regular aerobic exercise. Need aerobic exercise 5-6 days a week for 30 minutes at a time. Smaller portions and limit total calories. Declined colon cancer screening. Tetanus every 10 years. Advised not to smoke. Images from the original note were not included. Subjective Patient ID: Alexis Baez is a 74 y.o. male who presents for Medicare Annual Wellness Visit Subsequent (wellness). Presents for annual wellness visit. Last seen in 2022. Overall feels well. Weight unchanged. Not active and no regular exercise. Tries to watch diet and eat healthy. Increased fruits and vegetables. Smaller portions and limits snacking. Tries to limit total daily calories. Due for labs. Not back to cardiology for over a year. History of prostate cancer treated with radiation about 20 years ago and does not want PSA. Review of Systems Constitutional: Negative for fatigue. Respiratory: Negative for cough, shortness of breath and wheezing. Cardiovascular: Negative for chest pain and palpitations. Gastrointestinal: Negative for abdominal pain, diarrhea, nausea and vomiting. Genitourinary: Negative for dysuria. Objective Physical Exam Constitutional: General: He is not in acute distress. Appearance: Normal appearance. HENT: Head: Normocephalic. Right Ear: Tympanic membrane and ear canal normal. Left Ear: Tympanic membrane and ear canal normal. Eyes: Extraocular Movements: Extraocular movements intact. Pupils: Pupils are equal, round, and reactive to light. Cardiovascular: Rate and Rhythm: Normal rate and regular rhythm. Heart sounds: No murmur heard. No friction rub. No gallop. Pulmonary: Breath sounds: Normal breath sounds. No wheezing, rhonchi or rales. Abdominal: General: Bowel sounds are normal. There is no distension. Palpations: Abdomen is soft. Tenderness: There is no abdominal tenderness. There is no guarding or rebound. Musculoskeletal: General: Normal range of motion. Left lower leg: No edema. Neurological: General: No focal deficit present. Mental Status: He is alert. Cranial Nerves: No cranial nerve deficit. Deep Tendon Reflexes: Reflexes normal. Assessment/Plan Problem List Items Addressed This Visit Essential hypertension (CMS/HCC) BP controlled and monitor PRN. Paroxysmal atrial fibrillation (CMS/HCC) In NSR. Continue medication. Prediabetes Relevant Orders Hemoglobin A1c Medicare annual wellness visit, subsequent - Primary Due for labs. Discussed proper diet and regular aerobic exercise. Need aerobic exercise 5-6 days a week for 30 minutes at a time. Smaller portions and limit total calories. Declined colon cancer screening. Tetanus every 10 years. Advised not to smoke. Chronic HFrEF (heart failure with reduced ejection fraction) (CMS/HCC) Edema stable and follow with cardiology. Dyslipidemia (CMS/HCC) Relevant Orders Lipid panel CKD stage 3a, GFR 45-59 ml/min (CMS/HCC) Relevant Orders Basic metabolic panel Encounter for long-term current use of medication Relevant Orders CBC and differential Hepatic function panel Class 1 obesity due to excess calories with serious comorbidity and body mass index (BMI) of 31.0 to 31.9 in adult Relevant Orders TSH documented in this encounter [facility] Note 05-21-2022 Telephone Encounter - Cecilia Kwon [facility] Service Spec - 05/21/2022 3:17 PM EDT Note Date & Type Note Facility 05-21-2022 Miscellaneous Notes Formattin g of this note might be different from the original. Patient: Alexis Baez Date of : 1950 Patient phone number: [phone] Referring Provider for the encounter: Giorgi Davis Requesting Provider: Reason for requesting visit (RFV/signs and symptoms/diagnosis): A Fib Person calling: rp fax Return call to: self Medical Records/Insurance Card scanned into [employer]: No Comments: NA documented in this encounter [facility] Evaluation note Note Date & Type Note Facility Evaluation note Diagnosis Medicare annual wellness visit, subsequent- Primary Prediabetes Other abnormal glucose Essential hypertension (CMS/HCC) Unspecified essential hypertension Dyslipidemia (CMS/HCC) Other and unspecified hyperlipidemia CKD stage 3a, GFR 45-59 ml/min (CMS/HCC) Class 1 obesity due to excess calories with serious comorbidity and body mass index (BMI) of 31.0 to 31.9 in adult Encounter for long-term current use of medication Chronic HFrEF (heart failure with reduced ejection fraction) (CMS/HCC) Paroxysmal atrial fibrillation (CMS/HCC) Atrial fibrillation documented in this encounter [facility] Healthcare Summary Purpose Family History No Family History Records FoundNo Family History Records FoundNo Family History Records FoundNo Family History Records Found Advance Directives No Advanced Directives Records FoundNo Advanced Directives Records FoundNo Advanced Directives Records FoundNo Advanced Directives Records Found Additional Source Comments (unrecognized sect ion and content) No Status Records FoundNo Status Records FoundNo Status Records FoundNo Status Records Found INFORMATION SOURCE (unrecogn ized section and content) DATE CREATED AUTHOR 10/24/2021 [facility] DATE CREATED AUTHOR AUTHOR'S ORGANIZ ATION 12/24/2021 [facility] DATE CREATED AUTHOR AUTHOR'S ORGANIZ ATION 12/31/2024 [facility] dical [facility] DATE CREATED AUTHOR AUTHOR'S ORGANIZ ATION 01/05/2025 [facility] Source Comments (unrecognize d section and content) In the event this informatio n is protected by the Federal Confidentiality of Alcohol and Drug Abuse Patient Records regulations: The Federal rules restrict any use of the information to criminally investigate or prosecute any alcohol or drug abuse patient.[facility] Reason for Visit (unrecogniz ed section and content) Reason Comments External Referrals/resources Reason Comments Medicare Annual Wellness Visit Subsequen t wellness Care Teams (unrecognized sec tion and content) Bricklayer'S Assistant Relationship Specialty Start Date End Date Giorgi Davis MD [address] [place] [address] Referring Cardiology 05/16/22 Bricklayer'S Assistant Relationship Specialty Start Date End Date Eric Trujillo MD [address] [place] [id number] PCP - General Family Medicine 12/29/24 Bricklayer'S Assistant Relationship Specialty Start Date End Date Eric Trujillo MD [address] [place] [address] PCP - General Family Medicine 12/29/24 FOR RECORDS PERTAINING TO PATIENTS WHO ARE OR HAVE BEEN ENROLLED IN A CHEMICAL DEPENDENCY/SUBSTANCEABUSE PROGRAM, SOME INFORMATION MAY BE OMITTED. This clinical summary was aggregated from multiple sources. Caution should be exercised in using it in the provision of clinical care. This summary normalizes information from multiple sources, and as a consequence, information in this document may materially change the coding, format and clinical context of patient data. In addition, data may be omitted in some cases. CLINICAL DECISIONS SHOULD BE BASED ON THE PRIMARY CLINICAL RECORDS. [facility] [employer] [facility]. provides no warranty or guarantee of the accuracy or completeness of information in this document.
[2025-01-07 13:22] LABS: Estimated Average Glucose 120 mg/dL; Glycohemoglobin A1C 5.8 % (4.5-6.2)
[2025-01-07 13:31] LABS: Basophils Absolute Auto 0.1 10^3/uL (0.0-0.1); Eosinophils Absolute Auto 0.3 10^3/uL (0.0-0.7); Eosinophils Percent Auto 3.6 % (0.9-7.0); Hematocrit 46.3 % (42.0-54.0); Hemoglobin 15.6 g/dL (14.0-18.0); Immature Granulocytes Abs Auto 0.04 10^3/uL (0.00-0.03); Immature Granulocytes Pct Auto 0.6 % (0.0-0.5); Lymphocytes Absolute Auto 1.5 10^3/uL (1.2-3.8); Lymphocytes Percent Auto 21.8 % (20.5-60.0); Mean Corpuscular HGB Conc 33.7 g/dL (29.9-35.2); Mean Corpuscular Hemoglobin 31.3 pg (25.9-34.0); Mean Corpuscular Volume 92.8 fL (80.0-94.0); Mean Platelet Volume 10.2 fL (9.5-13.5); Monocytes Percent Auto 14.3 % (1.7-12.0); Neutrophils Percent Auto 58.7 % (43.0-75.0); Platelet Count 190 10^3/uL (150-450); Red Blood Count 4.99 10^6/uL (4.70-6.10); Red Cell Distribution Width 13.6 % (11.0-15.0); White Blood Count 6.9 10^3/uL (4.0-11.0)
[2025-01-07 14:12] LABS: Alanine Aminotransferase 17 U/L (16-63); Albumin Globulin Ratio 0.8; Albumin Level 3.4 g/dL (3.4-5.0); Alkaline Phosphatase 119 U/L (46-116); Anion Gap 7.3; Aspartate Amino Transferase 16 U/L (15-37); BUN Creatinine Ratio 12.3; Bilirubin Direct 0.2 mg/dL (0.0-0.2); Bilirubin Total 0.8 mg/dL (0.2-1.0); Calcium 8.9 mg/dL (8.5-10.1); Carbon Dioxide 29.8 mmol/L (21.0-32.0); Chloride 105 mmol/L (98-107); Chol HDL Ratio 2.2; Cholesterol 119 mg/dL (<=200); Estimated GFR (African America >60 (>=60 mL/min/1.73m^2); Estimated GFR (Non-African Ame 54 (>=60 mL/min/1.73m^2); Globulin 4.2 g/dL; Glucose 109 mg/dL (74-106); HDL Cholesterol 54 mg/dL (40-60); LDL Cholesterol Calculated 56.2 mg/dL; Potassium 4.1 mmol/L (3.5-5.1); Sodium 138 mmol/L (136-145); Thyroid Stimulating Hormone 0.537 uIU/mL (0.358-3.740); Total Protein 7.6 g/dL (6.4-8.2); Triglycerides 44 mg/dL (<=150); VLDL CHOLESTEROL 8.8 mg/dL
== END 2025-01-07 12:42 | disposition home or self-care (01) ==
LOC: LAB 12:43
PROVIDERS: PCP Family Medicine; Visit Provider Family Medicine
DX: R73.03 Prediabetes (principal); N18.31 Chronic kidney disease, stage 3a; Z79.899 Other long term (current) drug therapy; E78.5 Hyperlipidemia, unspecified; E66.811 Obesity, class 1; E66.09 Other obesity due to excess calories; Z68.31 Body mass index [BMI] 31.0-31.9, adult
CPT/HCPCS: 36415; 80048; 80061; 80076; 83036; 84443; 85025

== ENCOUNTER 2025-02-04 08:34 | Outpatient (OUT) | payer MEDICARE, SELFPAY ==
--- OUTSIDE RECORDS SUMMARY | 2025-01-27 09:20 | XMS_ITS | Encounter Summary ---
Author Organization [facility] Address [address] [place] [address] Care Team Providers Care Real Time Operator Name Role Phone Eric Pittman MD Primary Care Provider [phone] Reason for Referral * Imaging (Routine) - Pending Review Specialty Diagnoses / Procedures Referred By Az alexander Referred To Contact Cardiology Diagnoses Aneurysm of ascending 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 Chronic systolic heart failure (CMS/HCC) Procedures Transthoracic echo (TTE) complete Ligia Grayson CNP [address] [place] [address] Phone: tel: fax: Referral ID Status Reason Start Date Expiration Date Visits Requested Visits Authorized [id number] Pending Review Perform Procedure 01/27/2025 01/27/2026 1 1 Reason for Visit * Reason Comments Hypertension Congestive Heart Failure Aortic Aneurysm Encounter Details Date Type Department Care Team (Late st Contact Info) Description 01/27/2025 9:20 AM EDT Office Visit [facility] [address] [place] [id number] Ligia Grayson CNP [address] [place] [address] Aneurysm of ascending 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 (Primary Dx); Chronic systolic heart failure (CMS/HCC); Paroxysmal atrial fibrillation (CMS/HCC); History of radiofrequency ablation (RFA) for complex left atrial arrhythmia; Benign hypertensive heart disease with heart failure (CMS/HCC); SSS (sick sinus syndrome) (CMS/HCC); ICD (implantable cardioverter-defibrill ator) in place; Orthostatic hypotension Social History Tobacco Use Types Packs/Day Years Used Date Smoking Tobacco: Never Passive Smoke Exposure: Never Smokeless Tobacco: Never Alcohol Use Standard Drinks/Week Comments Yes 12 (1 standard drink = 0.6 oz pu re alcohol) PHQ-2 Answer Date Recorded Patient Health Questionnaire-2 Score 0 06/24/2023 [place] Safety & Environment Answer Date Rec orded Fear of Current or Ex-Partner Not on file Emotionally Abused Not on file 10/16/2023 Physically Abused Not on file 10/16/2023 Sexually Abused Not on file 10/16/2023 Physically or Sexually Abused Not on file Sex and Gender Information Value Date Recorded Sex Assigned at Not on file Legal Sex Male 11:39 PM EDT Gender Identity Not on file Sexual Orientation Not on file documented as of this encounter Last Filed Vital Signs Vital Sign Reading Time Taken Comments Blood Pressure 130/90 01/27/2025 9:17 AM EDT Pulse 72 01/27/2025 9:17 AM EDT Temperature - - Respiratory Rate - - Oxygen Saturation 95% 01/27/2025 9:17 AM EDT Inhaled Oxygen Concentration - - Weight 101 kg (223 lb) 01/27/2025 9:17 AM EDT Height 177.8 cm (5' 10 ) 01/27/2025 9:17 AM EDT Body Mass Index 32 01/27/2025 9:17 AM EDT documented in this encounter Progress Notes * Marci Pantoja MA - 01/27/2025 9:20 AM EDT Patient is here today for a 1 year follow up. Patient states he has no cardiac complaints or symptoms. Patient states he feels good. Review of Systems Constitutional: Negative. * Ligia Grayson CNP - 01/27/2025 9:20 AM EDT Images from the original note were not included. Cardiovascular Medicine [facility] SUBJECTIVE Chief Complaint Patient presents with Hypertension Congestive Heart Failure Aortic Aneurysm Danny Baez is a 74 y.o. male here for follow-up. PMHx: HFrEF, NICM, atrial fibrillation failed cardioversion and ICD placed at this time d/t pauses (amio stopped d/t side effects), CKD stage III, HTN HPI 01/27/2025 He states he feels well. No changes since last seen. He notes he has not seen CT surgery since we last saw him. Denies c/o CP, dyspnea, orthopnea, PND, LE edema, dizziness/LH, palpitations, syncope. 12/16/23 Patient here for 6 mo follow up persistent afib, systolic heart failure, ascending aortic dilatation, and hypertension. Had echo after last visit in May 2023. Device was interrogated in the office last week. Patient had cancer removed from his face recently. Had CT in Jun [address] surgery but he hasn't seen them in the office to review this. States he was never called by them to review resulteither. Denies chest pain, SOB, palpitations, and bleeding on Xarelto. Gets lightheaded upon standing. 12/16/23 He had positive orthostatic blood pressure today. He denies any changes since last seen. Denies any new cardiac complaints. 05/26/23: patient doing well with no complaints of chest pain, shortness of breath, LE edema, palpitations, lightness, dizziness. Patient was stopped on amiodarone about a year ago and has been doing well. His last device check in October 2022 did not show any episodes of an arrhythmia and is pending a newdevice check this month discussed with patient concern for ascending aortic aneurysm given past echo showing 5 cm, discussed with patient we will get repeat echocardiogram referral to CT surgery as he was previously referred but did not follow through with appt that was scheduled 11/22/22 HPI: patient had a device check today and reveals no episodes of atrial fibrillation. He is doing well. otherwise Prior HPI: Danny aBez is a 73 y.o. year old with past medical history of congestive heart failure s/p ICD, atrial fibrillation, hypertension, prostate cancer had previously been known to have an ejection fraction of 25% with global hypokinesis he was initially given an a GHASSAN cardioversion by Dr. Salgado which was unsuccessful and subsequently had a cardiac cath performed which showed normal coronaries without any evidence of ICD during the admission in 2015 he was subsequently taken for anICD placement by Dr. Washington. Since then he has had recovery of his ejection fraction but of late has noted that his EF has been become more persistent especially since August 2020. He has noticed and states that he was taken off amiodarone by Dr. BRUCE due to adverse effects of amiodarone with regardto liver function Pt is s/p DCCV on 06/11/21 and is back on atrial flutter with Vpacing/ naknek conducntion. He underwent PVI+ CTI on 09/20/21. He is doing well and repeat ECHO reveals EF to be normal. Aortic size is 5 cms. EP Study 09/20/21: PVI POST PROCEDURE DIAGNOSIS 1. Persistent atrial fibrillation s/p PVI ([facility]) 2. Atrial flutter s/p CTI ablation 3. EP study revealing no VA conduction. 4. No inducible arrhythmia with Adenosine. 5. High normal filling pressures. Patient Active Problem List Diagnosis Ascending aorta dilatation Cardiomyopathy (CMS/HCC) Dyspnea Essential hypertension Hypertensive disorder Malignant tumor of prostate (CMS/HCC) Paroxysmal atrial fibrillation (CMS/HCC) Systolic heart failure (CMS/HCC) History of radiofrequency ablation (RFA) for complex left atrial arrhythmia Orthostatic hypotension ICD (implantable cardioverter-defibrillator) in place SSS (sick sinus syndrome) (CMS/HCC) CKD stage 3a, GFR 45-59 ml/min (CMS/HCC) Class 1 obesity due to excess calories with serious comorbidity and body mass index (BMI) of 31.0 to 31.9 in adult Dyslipidemia Encounter for long-term current use of medication History of prostate cancer Medicare annual wellness visit, subsequent Prediabetes Past Medical History: Diagnosis Date Aneurysm Atrial fibrillation (CMS/HCC) CHF (congestive heart failure) (CMS/HCC) Hypertension Family History Problem Relation Name Age of Onset Hypertension Father Heart failure Father Prostate cancer Father Hypertension Sister Social History Tobacco Use Smoking status: Never Passive exposure: Never Smokeless tobacco: Never Substance Use Topics Alcohol use: Yes Alcohol/week: 12.0 standard drinks of alcohol Types: 12 Cans of beer per week Drug use: Never No Known Allergies OBJECTIVE Visit Vitals BP 130/90 (BP Location: Left arm, Patient Position: Sitting) Pulse 72 Ht 1.778 m (5' 10 ) Wt 101 kg (223 lb) SpO2 95% BMI 32.00 kg/m?? Smoking Status Never BSA 2.23 m?? Medications: Current Outpatient Medications: amLODIPine (Norvasc) 5 mg tablet, amlodipine 5 mg tablet TAKE 1 TABLET BY MOUTH DAILY, Disp: , Rfl: atorvastatin (Lipitor) 40 mg tablet, atorvastatin 40 mg tablet TAKE 1 TABLET BY MOUTH AT BEDTIME, Disp: , Rfl: carvedilol (Coreg) 12.5 mg tablet, carvedilol 12.5 mg tablet TAKE 1 TABLET BY MOUTH TWICE DAILY, Disp: , Rfl: lisinopril 10 mg tablet, lisinopril 10 mg tablet TAKE 1 TABLET BY MOUTH DAILY, Disp: , Rfl: rivaroxaban (Xarelto) 15 mg tablet, Take 1 tablet (15 mg) by mouth daily with evening meal. Take with food., Disp: 90 tablet, Rfl: 3 Physical Exam Constitutional: Appearance: Normal appearance. He is normal weight. HENT: Head: Normocephalic and atraumatic. Right Ear: External ear normal. Left Ear: External ear normal. Eyes: Extraocular Movements: Extraocular movements intact. Pupils: Pupils are equal, round, and reactive to light. Neck: Vascular: No carotid bruit. Cardiovascular: Rate and Rhythm: Normal rate and regular rhythm. Pulses: Normal pulses. Heart sounds: Normal heart sounds. Pulmonary: Effort: Pulmonary effort is normal. Breath sounds: Normal breath sounds. Abdominal: General: Bowel sounds are normal. Palpations: Abdomen is soft. Musculoskeletal: General: Normal range of motion. Cervical back: Neck supple. Right lower leg: No edema. Left lower leg: No edema. Skin: General: Skin is warm and dry. Neurological: General: No focal deficit present. Mental Status: He is alert and oriented to person, place, and time. Psychiatric: Mood and Affect: Mood normal. Behavior: Behavior normal. Thought Content: Thought content normal. Judgment: Judgment normal. Labs: Legacy Encounter on 09/20/2021 Component Date Value Ref Range Status Ventricular Rate 09/20/2021 61 BPM Final Atrial Rate 09/20/2021 61 BPM Final ME Interval 09/20/2021 308 ms Final QRS DURATION 09/20/2021 118 ms Final QT Interval 09/20/2021 482 ms Final QTC CALCULATION(BAZETT) 09/20/2021 485 ms Final P Humble 09/20/2021 38 degrees Final R-Humble 09/20/2021 12 degrees Final T Wave Humble 09/20/2021 2 degrees Final Diagnosis 09/20/2021 Final Value:Sinus rhythm with 1st degree A-V block Intra-ventricular conduction delay ST & T wave abnormality, consider anterolateral ischemia Prolonged QT Abnormal ECG When compared with ECG of 20-SEP-2021 07:22, (unconfirmed) Sinus rhythm has replaced Electronic atrial pacemaker Confirmed by IZABEL MCKEON ([id number]) on 09/20/2021 5:35:07 PM No results found for: EXTCMP , BMPR1A , CBCDIF , BNP , LASAP , RED 01/07/2025 Hgb 15.6, BUN 16, K 4.1, Na 138, eGFR 54, AST 16, ALT 17 Chol 119, LDL 56, HDL 54, trig 44 TSH 0.537 Testing/Procedures: EKG: EKG 05/14/2022 SR 08/11/2017 shows a paced ventricular sensed rhythm 09/27/2015 shows atrial fibrillation with demand pacing 09/18/2015 shows atrial fibrillation with naknek conduction Device check 12/09/2023: normal functioning device, no events Device check performed on 2022 shows normal device function with no atrial fibrillation seen Device check performed on 10/05/2021 reveals no episodes of mode switches with stable lead function said good thresholds. Device check from 04/20/2021 shows [employer] dual-chamber ICD with evidence of high atrial burden 97%of the time in A. fib since August 2020 with ventricular pacing occurring 53% of the time Echo: 06/04/2023 Echocardiogram 10/03/2021 shows ejection fraction of 55 to 60% with grade 1 diastolic dysfunction mild biatrial enlargement with mild aortic valve regurgitation with the ascending aorta severely enlarged at 5 cm. 03/01/2021 shows reduction of ejection fraction to 40 to 45% with moderate dilatation of the left atrium mild dilatation of the right atrium deviation the aorta is moderate to severely enlarged 5 cm. 04/19/2020 shows EF of 60% with a left atrium is mildly enlarged and mild aortic valve regurgitation 04/15/2019 shows ejection fraction of 55% with a sending aorta and root dilatation 07/10/2018 EF is 50 to 55% 11/07/2015 EF was 40 to 45% 09/18/2015 EF was 25% Stress test: Coronary angiogram: Cardiac cath 09/20/[address] BRUCE HEMODYNAMICS: RA: 10. RV: 26/8, 10. PA: 28/16, mean 21. Pulmonary capillary wedge pressure 16. AO: 119/89, mean 102. Cardiac output: 6.24. Cardiac index: 2.99. PA sat: 65%. AO sat: 87%. CORONARY ANGIOGRAPHY: This is a right-dominant circulation. Left main: This arises from the left coronary cusp. It bifurcates intoleft anterior descending and circumflex vessels. The left main has minimaluminal irregularities. Left anterior descending: This has minimal luminal irregularities.Circumflex vessel: This is a small and nondominant vessel that has minimaluminal irregularities. Right coronary artery: This arises from the right coronary cusp. It is alarge and dominant vessel. It has minimal luminal irregularities. LIMITED RIGHT FEMORAL ANGIOGRAPHY: This showed access to be in the right common femoral artery with noobstructive lesions noted in thefemoral artery or its proximal branches. SUMMARY OF THE FINDINGS: 1. Near normal coronary angiogram. 2. Mildly elevated filling pressures. 3. Normal pulmonary arterial pressures. 4. Preserved cardiac output and cardiac index. Mr. Baez is a 70 y/o M who presents to clinic for routine follow up. ASSESSMENT/PLAN: Diagnoses and all orders for this visit: Aneurysm of ascending 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 - Transthoracic echo (TTE) complete; Future Chronic systolic heart failure (CMS/HCC) - Transthoracic echo (TTE) complete; Future Paroxysmal atrial fibrillation (CMS/HCC) History of radiofrequency ablation (RFA) for complex left atrial arrhythmia Benign hypertensive heart disease with heart failure (CMS/HCC) SSS (sick sinus syndrome) (CMS/HCC) ICD (implantable cardioverter-defibrillator) in place Orthostatic hypotension #Persistent atrial fibrillation: S/p PVI+CTI . -Denies any sx's. RRR On exam. -Hx of tachymediated cardiomyopathy as his EF normalized once maintaining SR. -[id number] - 3 (age, HTN, HF) - denies bleeding issues, continue Xarelto. #Systolic heart failure: -Recovered EF. EF >55% per 05/2023 ECHO. -GDMT: Continue coreg 12.5mg BID, lisinopril 10mg daily -He appears compensated/euvolemic on exam. No diuretic needed at this time. -Follow-up ECHO ordered. #Hypertensive disorder #Orthostatic hypotension -At his last visit he c/o dizziness/LH with position changes. Positive orthostatic BP: Sitting BP 130/84, standing BP 100/74. Will need to use caution with antihypertensive medications to avoid syncope. -Advised patient to changes positions slowly. -continue amlodipine 5mg daily, coreg 12.5mg BID, lisinopril 10mg daily #Ascending aorta dilatation: -Aortic dilatation at 5cms. His last CT scan measured it at 5.0 cm. He has not yet seen CT Sx. We scheduled pt an appt. -Follow-up CTA Chest ordered. -Stressed to pt the importance of follow-up with CT sx. #SSS s/p dual chamber ICD -Device check 01/04/25 showed normal function, lead measurements stable, no recent events -Continue q6 month device checks. #Chronic renal impairment Follow up in about 3 months (around 04/29/2025). Ligia Grayson CNP [facility] Cardiovascular Medicine documented in this encounter Plan of Treatment Upcoming Encounters Date Type Department Care Team (Late st Contact Info) Description 02/15/2025 2:00 PM EDT Follow-Up [facility] [address] [place] [address] Doug Thomas MD [address] [place] [address] Scheduled Orders Name Type Priority Associated Diagnoses Order Schedule Transthoracic echo (TTE) complete Echocardiography Routine Aneurysm of ascending 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 Chronic systolic heart failure (CMS/HCC) Expected: 01/27/2025 (Approximate), Expires: 01/27/2027 documented as of this encounter Visit Diagnoses Diagnosis Aneurysm of ascending 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- Primary Chronic systolic heart failure (CMS/HCC) Chronic systolic heart failure Paroxysmal atrial fibrillation (CMS/HCC) Atrial fibrillation History of radiofrequency ablation (RFA) for complex left atrial arrhythmia Benign hypertensive heart disease with heart failure (CMS/HCC) SSS (sick sinus syndrome) (CMS/HCC) Sinoatrial node dysfunction ICD (implantable cardioverter-defibrillator) in place Orthostatic hypotension documented in this encounter Care Teams Real Time Operator Relationship Specialty Start Date End Date Eric Pittman MD [address] [place] [address] PCP - General 05/14/22 documented as of this encounter
--- OUTSIDE RECORDS SUMMARY | 2025-02-04 08:36 | XMS_ITS | Clinical Summary ---
Author Organization [facility] Healthcare Address [address] [facility] [place] [address] Care Team Providers Care Loss Control Manager Name Role Phone Eric Pittman MD Primary Care Provider [phone] Allergies No known active allergies Medications atorvastatin (Lipitor) 40 MG tabletIndications :Hyperlipidemia, unspecified TAKE 1 TABLET BY MOUTH AT BEDTIME 90 tablet 3 4 Active lisinopril 10 MG tabletIndications :Essential (primary) hypertension TAKE 1 TABLET BY MOUTH DAILY 90 tablet 3 4 Active amLODIPine (Norvasc) 5 MG tabletIndications :Essential (primary) hypertension TAKE 1 TABLET BY MOUTH DAILY 90 tablet 3 4 Active carvedilol (Coreg) 12.5 MG tabletIndications :Essential (primary) hypertension TAKE 1 TABLET BY MOUTH TWICE DAILY 180 tablet 3 4 Active rivaroxaban (Xarelto) 15 MG tablet Take 15 mg by mouth 5 11/02/19 26 Active Active Problems Problem Noted Date Diagnosed Date Thyroid nodule 01/27/2025 Right lower lobe lung mass 01/27/2025 Prediabetes 12/29/2024 Medicare annual wellness visit, subsequent 12/29 Assessment & Plan (12/29/2024 10:27 AM EDT): Due for labs. Discussed proper diet and regular aerobic exercise. Need aerobic exercise 5-6 days a week for 30 minutes at a time. Smaller portions and limit total calories. Declined colon cancer screening. Tetanus every 10 years. Advised not to smoke. Chronic HFrEF (heart failure with reduced ejection fraction) 12/29/2024 Assessment & Plan (12/29/2024 10:27 AM EDT): Edema stable and follow with cardiology. Dyslipidemia 12/29/2024 CKD stage 3a, GFR 45-59 ml/min 12/29/2024 Encounter for long-term current use of medicatio n 12/29/2024 Class 1 obesity due to exces s calories with serious comorbidity and body mass index (BMI) of 31.0 to 31.9 in adult 12/29/2024 Cardiomyopathy 05/26/2023 Essential hypertension 05/26/2023 Overview (12/29/2024): 20 YEARS AGO Assessment & Plan (12/29/2024 10:27 AM EDT): BP controlled and monitor PRN. History of prostate cancer 05/26/2023 Paroxysmal atrial fibrillation 07/24/2021 Assessment & Plan (12/29/2024 10:27 AM EDT): In NSR. Continue medication. Encounters Date Type Department Care Team Description 01/27/2025 Telephone [facility] [address] [place] [address] Eric Pittman MD 01/07/2025 Results Follow-Up [facility] [address] [place] [address] Eric Pittman MD 01/07/2025 Clinisync Result Encounter [facility] External Department Unsolicited Eric Pittman MD 12/29/2024 9:15 AM EDT Office Visit [facility] [address] [place] [address] Eric Pittman MD Medicare annual wellness visit, subsequent (Primary Dx); Prediabetes; Essential hypertension ; Dyslipidemia ; CKD stage 3a, GFR 45-59 ml/min ([facility]); Class 1 obesity due to excess calories with serious comorbidity and body mass index (BMI) of 31.0 to 31.9 in adult; Encounter for long-term current use of medication; Chronic HFrEF (heart failure with reduced ejection fraction) (HCC); Paroxysmal atrial fibrillation (HCC) 12/29/2024 Bamboo flowsheet [facility] [address] [place] [address] Eric Pittman MD from Last 3 Months Social History Tobacco Use Types Packs/Day Years Used Date Smoking Tobacco: Never Smokeless Tobacco: Never Tobacco Cessation:Counseling Given: Not Answered PHQ-2 Answer Date Recorded Patient Health Questionnaire-2 Score 0 12/29/2024 Sex and Gender Information Value Date Recorded Sex Assigned at Not on file Legal Sex Male 9:53 AM EDT Gender Identity Not on file Sexual Orientation Not on file Last Filed Vital Signs Vital Sign Reading Time Taken Comments Blood Pressure 132/78 12/29/2024 9:31 AM EDT Pulse 76 12/29/2024 9:31 AM EDT Temperature 36.4 C (97.5 F) 12/29/2024 9:31 AM EDT Respiratory Rate 20 12/29/2024 9:31 AM EDT Oxygen Saturation 96% 12/29/2024 9:31 AM EDT Inhaled Oxygen Concentration - - Weight 99.8 kg (220 lb) 12/29/2024 9:31 AM EDT Height 179.1 cm (5' 10.52 ) 12/29/2024 9:31 AM E DT Body Mass Index 31.1 12/29/2024 9:31 AM EDT Plan of Treatment Upcoming Encounters Date Type Department Care Team (Late st Contact Info) Description 07/04/2025 8:00 AM EST Office Visit [facility] [address] [place] [address] Eric Pittman MD [address] [place] [address] Health Maintenance Due Date Last Done Comments CT Colonography 1950 Colonoscopy 1950 FIT-DNA 1950 FOBT 1950 Sigmoidoscopy 1950 Pneumococcal Vaccine: 65+ Ye ars (1 of 2 - PCV) 1971 FIT 06/20/2024 06/20/2023 Influenza Vaccine (Season Ended) 2025 Colorectal Cancer Screening 12/29/2025 Postponed from 1950 (Patient Refused) Medicare Annual Wellness (AWV) 12/29/2025 12/29/2024 Procedures Procedure Name Priority Date/Time Associated Diagnosis Comments ALL THYROID STIM HORMONE Routine 01/07/2025 1:00 PM EDT ALL LIPID PROFILE (FASTING) Routine 01/07/2025 1:00 PM EDT ALL BASIC METABOLIC PANEL Routine 01/07/2025 1:00 PM EDT HMHP LIVER PANEL Routine 01/07/2025 1:00 PM EDT ALL CBC WITH AUTO DIFF Routine 1:00 PM EDT MLR HEMOGLOBIN A1C Routine 01/07/2025 1: 00 PM EDT FECAL IMMUNOCHEMICAL Routine 06/20/2023 2:51 PM EDT from Last 3 Months or Most Recently Relevant to Health Maintenance Results * MLR HEMOGLOBIN A1C (01/07/2025 1:00 PM EDT) GLYCOHEMOGLOBIN A1C 5.8 4.5 - 6.2 % TB Comment: ADA RECOMMENDED LIMIT 4.0 - 6.0 ADA THERAPEUTIC TARGET < 7.0 ACTION SUGGESTED > 7.0 ESTIMATED AVERAGE GLUCOSE 120 mg/dL TBH 01/07/2025 1:00 PM EDT 01/07/2025 1:07 PM EDT Narrative CLINISYNC - 01/07/2025 1:22 PM EDT us Eric Pittman MD [facility]INIS[facility] ([facility] LIVER PANEL (01/07/2025 1:00 PM EDT) BILIRUBIN TOTAL 0.8 0.2 - 1.0 mg/dL TBH BILIRUBIN DIRECT 0.2 0.0 - 0.2 mg/dL TBH ASPARTATE AMINO TRANSFERASE 16 15 - 37 U/L TBH ALANINE AMINOTRANSFERASE 17 16 - 63 U/L TB ALKALINE PHOSPHATASE 119(H) 46 - 116 U/L TB TOTAL PROTEIN 7.6 6.4 - 8.2 g/dL TBH ALBUMIN LEVEL 3.4 3.4 - 5.0 g/dL TBH GLOBULIN 4.2 g/dL TBH ALBUMIN GLOBULIN RATIO 0.8 TB 01/07/2025 1:00 PM EDT 01/07/2025 1:07 PM EDT Narrative CLINISYNC - 01/07/2025 2:29 PM EDT Eric ARIZAISYJOSIE Final Result [facility] * ALL THYROID STIM HORMONE (01/07/2025 1:00 PM EDT) THYROID STIMULATING HORMONE 0.537 0.358 - 3.740 uIU/mL TB 01/07/2025 1:00 PM EDT 01/07/2025 1:07 PM EDT Narrative CLINISYNC - 01/07/2025 2:29 PM EDT Eric NEIL Final Result [facility] * ALL LIPID PROFILE (FASTING) (01/07/2025 1:00 PM EDT) TRIGLYCERIDES 44 <=150 mg/dL TBH CHOLESTEROL 119 <=200 mg/dL TB HDL CHOLESTEROL 54 40 - 60 mg/dL TB Comment: > or =60 mg/dl - LOW CARDIOVASCULAR RISK <40 mg/dl - HIGH CARDIOVASCULAR RISK LDL CHOLESTEROL CALCULATED 56.2 mg/dL TB Comment: <100 mg/dl OPTIMAL 100-129 mg/dl NEAR OR ABOVE OPTIMAL 130-159 mg/dl BORDERLINE HIGH 160-189 mg/dl HIGH >190 mg/dl VERY HIGH VLDL CHOLESTEROL 8.8 mg/dL TB CHOL HDL RATIO 2.2 TB Comment: 3.3 - 4.4 LOW RISK 4.4 - 7.1 AVERAGE RISK 7.1 - 11.0 MODERATE RISK >11.0 HIGH RISK 01/07/2025 1:00 PM EDT 01/07/2025 1:07 PM EDT Narrative CLINISYNC - 01/07/2025 2:29 PM EDT Eric Pittman MD CLINISYNC Final Result [facility] * (ABNORMAL) ALL CBC WITH AUTO DIFF (01/07/2025 1:00 PM EDT) Pathologist [facility] TB WBC 6.9 4.0 - 11.0 10 3/uL TBH TBH RBC 4.99 4.70 - 6.10 10 6/uL TBH TBH HGB 15.6 14.0 - 18.0 g/dL TBH TBH HCT 46.3 42.0 - 54.0 % TBH TBH MCV 92.8 80.0 - 94.0 fL TBH TBH MCH 31.3 25.9 - 34.0 pg TBH TBH MCHC 33.7 29.9 - 35.2 g/dL TBH TBH RDW 13.6 11.0 - 15.0 % TBH TBH PLT 190 150 - 450 10 3/uL TBH TBH MPV 10.2 9.5 - 13.5 fL TBH NEUTROPHILS PERCENT AUTO 58.7 43.0 - 75.0 % TBH LYMPHOCYTES PERCENT AUTO 21.8 20.5 - 60.0 % TBH MONOCYTES PERCENT AUTO 14.3(H) 1.7 - 12.0 % TBH TBH EO % 3.6 0.9 - 7.0 % TBH BASOPHILS PERCENT AUTO 1.0 0.2 - 2.0 % TBH IMMATURE GRANULOCYTES PCT AUTO 0.6(H) 0.0 - 0.5 % TBH NEUTROPHILS ABSOLUTE AUTO 4.0 1.4 - 6.5 10 3/uL TBH LYMPHOCYTES ABSOLUTE AUTO 1.5 1.2 - 3.8 10 3/uL TBH MONOCYTES ABSOLUTE AUTO 1.0(H) 0.3 - 0.8 10 3/uL TBH TBH EO # 0.3 0.0 - 0.7 10 3/uL TBH BASOPHILS ABSOLUTE AUTO 0.1 0.0 - 0.1 10 3/uL TBH IMMATURE GRANULOCYTES ABS AUTO 0.04(H) 0.00 - 0.03 10 3/uL TBH 01/07/2025 1:00 PM EDT 01/07/2025 1:07 PM EDT Narrative CLINISYNC - 01/07/2025 1:35 PM EDT Eric Pittman MD CLIN[facility]JOSIE [facility] * ([facility]) ALL BASIC METABOLIC PANEL (01/07/2025 1:00 PM EDT) SODIUM 138 136 - 145 mmol/L TBH POTASSIUM 4.1 3.5 - 5.1 mmol/L TBH CHLORIDE 105 98 - 107 mmol/L TBH CARBON DIOXIDE 29.8 21.0 - 32.0 mmol/L TBH ANION GAP 7.3 TBH GLUCOSE 109(H) 74 - 106 mg/dL TBH BLOOD UREA NITROGEN 16.0 7.0 - 18.0 mg/dL TBH CREATININE 1.30 0.70 - 1.30 mg/dL TBH TBH EGFR-AF ALGERIAN >60 >=60 mL/min/1.7 3m 2 TBH TBH EGFR-NON AF ALGERIAN 54(L) >=60 mL/min/1.7 3m 2 TBH BUN CREATININE RATIO 12.3 TBH CALCIUM 8.9 8.5 - 10.1 mg/dL TBH 01/07/2025 1:00 PM EDT 01/07/2025 1:07 PM EDT Narrative CLINISYNC - 01/07/2025 2:29 PM EDT Eric Pittman MD CLINISYJOSIE Final Result [facility] * Fecal immunochemical (06/20/2023 2:51 PM EDT) Stool Rectal contents / Unknown Eric Pittman MD LAB BODY FLUIDS AND STOOLS ORDER DEQUAN Final Result from Last 3 Months or Most Recently Relevant to Health Maintenance Insurance [employer] Care Teams Loss Control Manager Relationship Specialty Start Date End Date Eric Pittman MD [address] [place] [address] PCP - General Family Medicine 12/29/24
--- OUTSIDE RECORDS SUMMARY | 2025-02-04 08:36 | XMS_ITS | Referral Summary ---
Author Organization [facility] Address [address] [place] [address] Care Team Providers Care Type Casting Machine Operator Name Role Phone Eric Pittman MD Primary Care Provider [phone] Encounters Date Type Department Care Team Description 01/27/2025 Orders Only [place] [address] [place] [address] Roseanne Brooks MA 01/27/2025 9:20 AM EDT Office Visit [facility] [address] [place] [address] Ligia Grayson CNP Aneurysm of ascending 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 (Primary Dx); Chronic systolic heart failure (CMS/HCC); Paroxysmal atrial fibrillation (CMS/HCC); History of radiofrequency ablation (RFA) for complex left atrial arrhythmia; Benign hypertensive heart disease with heart failure (CMS/HCC); SSS (sick sinus syndrome) (CMS/HCC); ICD (implantable cardioverter-defibrill ator) in place; Orthostatic hypotension 01/04/2025 3:15 PM EDT Ancillary Procedure [facility] [address] [place] [address] Encounter for implantable defibrillator reprogramming or check from Last 3 Months Allergies No known active allergies Medications amLODIPine (Norvasc) 5 mg tablet amlodipine 5 mg tablet TAKE 1 TABLET BY MOUTH DAILY Active atorvastatin (Lipitor) 40 mg tablet atorvastatin 40 mg tablet TAKE 1 TABLET BY MOUTH AT BEDTIME Active carvedilol (Coreg) 12.5 mg tablet carvedilol 12.5 mg tablet TAKE 1 TABLET BY MOUTH TWICE DAILY Active lisinopril 10 mg tablet lisinopril 10 mg tablet TAKE 1 TABLET BY MOUTH DAILY Active rivaroxaban (Xarelto) 15 mg tabletIndicatio ns:Atrial fibrillation, unspecified type (CMS/HCC) Take 1 tablet (15 mg) by mouth daily with evening meal. Take with food. 90 tablet 3 5 11/02/19 26 Active Active Problems Problem Noted Date Diagnosed Date CKD stage 3a, GFR 45-59 ml/min 12/29/2024 Class 1 obesity due to exces s calories with serious comorbidity and body mass index (BMI) of 31.0 to 31.9 in adult 12/29/2024 Dyslipidemia 12/29/2024 Encounter for long-term current use of medicatio n 12/29/2024 Medicare annual wellness visit, subsequent 12/29 Prediabetes 12/29/2024 History of radiofrequency ab lation (RFA) for complex left atrial arrhythmia 12/20/2023 Orthostatic hypotension 12/20/2023 ICD (implantable cardioverter-defibrillator) in place 12/20/2023 SSS (sick sinus syndrome) 12/20/2023 Cardiomyopathy 05/26/2023 05/26/2023 Dyspnea 05/26/2023 05/26/2023 Essential hypertension 05/26/2023 3 Overview (05/26/2023): 20 YEARS AGO Hypertensive disorder 05/26/2023 05/26/2023 Malignant tumor of prostate 05/26/2023 1009/2022 Systolic heart failure 05/26/2023 History of prostate cancer 05/26/2023 Paroxysmal atrial fibrillation 07/24/2021 1 Ascending aorta dilatation 04/06/202105/26 Social History Tobacco Use Types Packs/Day Years Used Date Smoking Tobacco: Never Passive Smoke Exposure: Never Smokeless Tobacco: Never Tobacco Cessation:Counseling Given: Not Answered Alcohol Use Standard Drinks/Week Comments Yes 12 [...] Pulse 72 01/27/2025 9:17 AM EDT Temperature 36.3 C (97.3 F) 06/24/2023 3:26 PM EDT Respiratory Rate 16 06/24/2023 3:26 PM EDT Oxygen Saturation 95% 01/27/2025 9:17 AM EDT Inhaled Oxygen Concentration - - Weight 101 kg (223 lb) 01/27/2025 9:17 AM EDT Height 177.8 cm (5' 10 ) 01/27/2025 9:17 AM EDT Body Mass Index 32 01/27/2025 9:17 AM EDT Plan of Treatment Upcoming Encounters Date Type Department Care Team (Late st Contact Info) Description 02/15/2025 2:00 PM EDT Follow-Up [facility] [address] [place] [address] Doug Thomas MD [address] [place] [address] Procedures Procedure Name Priority Date/Time Associated Diagnosis Comments CARDIAC DEVICE CHECK - IN CLINIC - ICD DUAL CHAMBER W/ PROG Routine 01/05/2025 1:09 PM EDT Encounter for implantable defibrillator reprogramming or check from Last 3 Months Results * CARDIAC DEVICE CHECK - IN CLINIC - ICD DUAL CHAMBER W/ PROG (01/05/2025 1:09 PM EDT) Anatomical Region Laterality Modality Other Narrative 01/19/2025 12:51 AM EDT By using the attestations below, the signing clinician agrees that I have read and verify that the documentation has been personally reviewed by me and ensure that the documentation accurately reflects the encounter. Routine EP device follow up as per schedule. Please see attached note us Giorgi Davis MD CV IMPLANTABLE CARDIAC DEVICE NE OCEDURES Final Result from Last 3 Months Insurance [employer] Care Teams Type Casting Machine Operator Relationship Specialty Start Date End Date Eric Pittman MD [address] [place] [address] PCP - General 05/14/22
--- OUTSIDE RECORDS SUMMARY | 2025-02-04 08:36 | XMS_ITS | Encounter Summary ---
Author Organization [facility] Address [address] [facility] [[email or web address] [place] [address] Care Team Providers Care E Commerce Manager Name Role Phone Eric Pittman MD Primary Care Provider [phone] Eric Pittman MD Unavailable Eric Pittman MD Primary Care Provider [phone] Encounter Details Date Type Department Care Team (Late Contact Info) Description 08/13/2023 Orders Only [facility] [address] [place] [address] Eirc Pittman MD [address] [place] [address] Social History Tobacco Use Types Packs/Day Years Used Date Smoking Tobacco: Never Assessed Sex and Gender Information Value Date Recorded Sex Assigned at Not on file Legal Sex Male 9:53 AM EDT Gender Identity Not on file Sexual Orientation Not on file documented as of this encounter Plan of Treatment Upcoming Encounters Date Type Department Care Team (Late Contact Info) Description 07/04/2025 8:00 AM EST Office Visit [facility] [address] [place] [address] Eric Pittman MD [address] [place] [address] documented as of this encounter Procedures Procedure Name Priority Date/Time Associated Diagnosis Comments FECAL IMMUNOCHEMICAL Routine 06/20/2023 2:51 PM EDT documented in this encounter Results * Fecal immunochemical (06/20/2023 2:51 PM EDT) Stool Rectal contents / Unknown Eric Pittman MD LAB BODY FLUIDS AND STOOLS ORDER DEQUAN Final Result documented in this encounter Visit Diagnoses Not on filedocumented in this encounter Care Teams E Commerce Manager Relationship Specialty Start Date End Date Eric Pittman MD PCP - General Family Medicine 08/25/22 12/28/24 Eric Pittman MD [address] [place] [address] PCP - Devoted 02/23/24 09/24/24 Eric Pittman MD [address] [place] [address] PCP - General Family Medicine 12/29/24 documented as of this encounter
--- OUTSIDE RECORDS SUMMARY | 2025-02-04 08:36 | XMS_ITS | Encounter Summary ---
Author Organization [facility] Address [address] [facility] [place] [address] Care Team Providers Care Hand Bindery Assembly Worker Name Role Phone Eric Pittman MD Primary Care Provider [phone] Encounter Details Date Type Department Care Team (Late Contact Info) Description 01/07/2025 Results Follow-Up [facility] [address] [place] [address] Eric Pittman MD [address] [place] [address] Social History Tobacco Use Types Packs/Day Years Used Date Smoking Tobacco: Never Smokeless Tobacco: Never PHQ-2 Answer Date Recorded Patient Health Questionnaire-2 [...] 07/04/2025 8:00 AM EST Office Visit [facility] [address] [place] [address] Eric Pittman MD [address] [place] [address] documented as of this encounter Visit Diagnoses Not on filedocumented in this encounter Additional Health Concerns Assessment Noted Time PHQ-9 Depression Total Score: 3 12/30/19 9:00 AM EDT documented as of this encounter Care Teams Hand Bindery Assembly Worker Relationship Specialty Start Date End Date Eric Pittman MD [address] [place] [address] PCP - General Family Medicine 12/29/24 documented as of this encounter
--- OUTSIDE RECORDS SUMMARY | 2025-02-04 08:36 | XMS_ITS | Encounter Summary ---
Author Organization [facility] Address [address] [place] [address] Care Team Providers Care Director Compliance Name Role Phone Eric Pittman MD Primary Care Provider [phone] Reason for Referral * Imaging (Routine) - Authorized Specialty Diagnoses / Procedures Referred By Contvikas alexander Referred To Contact Radiology Diagnoses Right lower lobe lung mass Procedures CT chest wo IV contrast Eric Pittman MD [address] [place] [address] Phone: tel: fax: [facility] [address] [place] [address] Phone: tel: fax: Referral ID Status Reason Start Date Expiration Date V isits Requested Visits Authorized [id number] Authorized 01/31/2025 04/01/2025 1 1 Encounter Details Date Type Department Care Team (Late st Contact Info) Description 01/27/2025 [facility]phone [facility] [address] [place] [address] Eric Pittman MD [address] [place] [address] Social History Tobacco Use Types Packs/Day Years Used Date Smoking Tobacco: Never Smokeless Tobacco: Never PHQ-2 Answer Date Recorded Patient Health Questionnaire-2 Score 0 12/29/2024 Sex and Gender Information Value Date Recorded Sex Assigned at Not on file Legal Sex Male 9:53 AM EDT Gender Identity Not on file Sexual Orientation Not on file documented as of this encounter Miscellaneous Notes * Telephone Encounter - Eric Pittman MD - 01/27/2025 5:06 PM EDT Received fax of CT reports from 07/09/2023 that was previously not available and ordered by anotherphysician. CT shows lung lesion and thyroid nodule. Need to check CT chest and US thyroid. Orders in chart, please fax to hospital. documented in this encounter Plan of Treatment Upcoming Encounters Date Type Department Care Team (Late st Contact Info) Description 07/04/2025 8:00 AM EST Office Visit [facility] [address] [place] [address] Eric Pittman MD [address] [place] [address] Scheduled Orders Name Type Priority Associated Diagnoses Orde r Schedule CT chest wo IV contrast Imaging Routine Right lower lobe lung mass Expected: 01/27/2025, Expires: 01/27/2026 US thyroid Imaging Routine Thyroid nodule Expected: 01/27/2025, Expires: 01/27/2026 documented as of this encounter Visit Diagnoses Diagnosis Thyroid nodule- Primary Nontoxic uninodular goiter Right lower lobe lung mass documented in this encounter Additional Health Concerns Assessment Noted Time PHQ-9 Depression Total Score: 3 12/30/19 9:00 AM EDT documented as of this encounter Care Teams Director Compliance Relationship Specialty Start Date End Date Eric Pittman MD [address] [place] [address] PCP - General Family Medicine 12/29/24 documented as of this encounter
--- OUTSIDE RECORDS SUMMARY | 2025-02-04 08:36 | XMS_ITS | Clinical Summary ---
Author Organization [facility] Address [address] [place], [place] [address] Care Team Providers Care Milk Pickup Driver Name Role Phone Giorgi Davis MD Unavailable Social History Tobacco Use Types Packs/Day Years Used Date Smoking Tobacco: Never Assessed Sex and Gender Information Value Date Recorded Sex Assigned at Not on file Legal Sex Male 3:41 PM EDT Gender Identity Not on file Sexual Orientation Not on file Plan of Treatment Not on file Care Teams Milk Pickup Driver Relationship Specialty Start Date End Date Giorgi Davis MD [address] [place] [phone] Referring Cardiology 05/16/22
--- NOTE | 2025-02-04 08:38 | CT_ITS ---
The [address] [address] Patient Name: ALEXIS CLARK MRN: [id number] date: 1950 Sex: M Assigned Patient Location: CT Current Patient Location: CT Accession/Order Number: [id number] Exam Date: 02/04/2025 09:21 Report Date: 02/04/2025 09:38 At the request of: KRYSTA MARQUEZ MD Procedure: CT angio chest CTA CHEST WITH CONTRAST CLINICAL HISTORY: Ascending Aorta Dilation follow-up COMPARISON: 07/09/2023 TECHNIQUE: Spiral images were obtained through the chest following intravenous administration of 100 mL of Omnipaque 350. Images were reviewed using both narrow and wide window settings. Sagittal, coronal and 3 D volume-rendered reconstructions were performed and reviewed. This CT exam was performed using one or more following dose reduction techniques: Automated exposure control, adjustment of the mA and/or kV according to patient size, or use of iterative reconstruction technique. FINDINGS: There is a left-sided pacemaker. The heart is borderline enlarged. Minor coronary disease is visualized. There is no pericardial effusion. Similar aneurysmal dilatation of the ascending aorta is noted with diameter of 5 cm. No dissection is seen. There is adequate opacification of the pulmonary arteries. No emboli are identified. No pathologic lymphadenopathy is seen. A heterogeneously hypodense left thyroid nodule is again visualized. There are degenerative changes at the spine and suspected DISH. Calcified pleural plaque is present, predominantly over the hemidiaphragms. Fibrocalcific scarring is present at the left apex, similar to the prior. Linear scarring and/or atelectasis is present at the lower lobes along with a more rounded area at the right posterior costophrenic angle which is unchanged. There is no developing consolidation, effusion or discrete soft tissue nodules. No pneumothorax is seen. Limited cuts through the upper abdomen show cholelithiasis. CT/CT angio chest IMPRESSION: STABLE 5 CM ASCENDING AORTIC ANEURYSM, WITHOUT DISSECTION. NO PULMONARY EMBOLI. BORDERLINE CARDIOMEGALY. CALCIFIED PLEURAL PLAQUE ALONG WITH SCARRING AND/OR ATELECTASIS. SIMILAR THYROID NODULARITY. CHOLELITHIASIS. Impression dictated by: Tori Lepe M.D. 02/04/2025 9:38 AM Dictation Location: [place] [address] Electronically authenticated by: [id number] Date: 02/04/2025 09:38
--- OUTSIDE RECORDS SUMMARY | 2025-02-04 08:40 | XMS_ITS | CCD ---
Author Organization [facility] Care Team Providers Care Range Management Specialist Name Role Phone GIORGI DAVIS Attending Unavailable [...] NADERER, DR ERIC Wheeler Primary Care Unavailable FAWWADSHAIKH Attending Unavailable FAWWASHAIKH George Admitting Unavailable NADERER, DR ERIC Wheeler Primary Care Unavailable NAFISA CLEVELAND Attending Unavailable CLEVELANDNAFISA Admitting Unavailable CLEVELANDNAFISA Attending Unavailable NAFISA CLEVELAND Admitting Unavailable NADERER, [...] NADERER, DR ERIC Wheeler Primary Care Unavailable GLENNROBERTO SWEENEY Attending Unavailable GLENN, ROBERTO Admitting Unavailable GLENNROBERTO Consulting Unavailable GLENNORBERTO DUNAWAY Consulting Unavailable NADERER, DR ERIC Wheeler Primary Care Unavailable ROBERTO ELIZABETH Attending Unavailable GLENNROBERTO SWEENEY Admitting Unavailable MOUKARBEL, DR LOPEZ Consulting Unavailable NADERER, DR ERIC Wheeler Primary Care Unavailable AARON, DR LOPEZ Attending Unavailable AARON, DR LOPEZ Admitting Unavailable RONNIE, DR BRAUN A Primary Care Unavailable NAFISA CLEVELAND Attending Unavailable CRISTOFER, NAFISA Admitting Unavailable LEVEREYusuf, DR BRAUN A Primary Care Unavailable NAFISA CLEVELAND Attending Unavailable NAFISA CLEVELAND Admitting Unavailable NADEREYusuf, DR ERIC Wheeler Primary Care Unavailable CRISTOFER, NAFISA Attending Unavailable CRISTOFER, NAFISA Admitting Unavailable NADERER, DR ERIC Wheeler Primary Care Unavailable CIELO, Attending Unavailable CIELO, Admitting Unavailable NADERER, DR ERIC Wheeler Primary Care Unavailable CIELO, Attending Unavailable CIELO, Admitting Unavailable NADEREYusuf, DR ERIC Wheeler Primary Care Unavailable NAFISA CLEVELAND Attending Unavailable CRISTOFER, NAFISA Admitting Unavailable Giorgi Davis MD Unavailable Eric Trujillo MD Primary Care Provider [phone] ERIC TRUJILLO Attending Unavailable ROBERTO ELIZABETH Attending Unavailable GIORGI DAVIS Referring Unavailable GIORGI DAVSI Referring Unavailable Medications Current Medications Medication Drug Class(es) Dates Sig (Normalized) Sig (Original) amLODIPine 5 mg oral tablet (5 sources) Dihydropyridine Calcium Channel Luiz Start: 03-01-2024 take 1 tablet by mouth once daily amLODIPine (Norvasc) 5 MG tablet Indications: Essential (primary) hypertension (CMS/HCC) TAKE 1 TABLET BY MOUTH DAILY 90 tablet 3 03/01/2024 Active atorvastatin 40 mg oral tablet (5 sources) HMG-CoA Reductase Inhibitor Start: 03-01-2024 take 1 tablet by mouth at bedtime atorvastatin (Lipitor) 40 MG tablet Indications: Hyperlipidemia, unspecified (CMS/HCC) TAKE 1 TABLET BY MOUTH AT BEDTIME 90 tablet 3 03/01/2024 Active carvedilol 12.5 mg oral tablet (5 sources) alpha-Adrenergic Luiz, beta-Adrenergic Luiz Start: 03-01-2024 take 1 tablet by mouth twice daily carvedilol (Coreg) 12.5 MG tablet Indications: Essential (primary) hypertension (CMS/HCC) TAKE 1 TABLET BY MOUTH TWICE DAILY 180 tablet 3 03/01/2024 Active lisinopril 10 mg oral tablet (5 sources) Angiotensin Converting Enzyme Inhibitor Start: 03-01-2024 take 1 tablet by mouth once daily lisinopril 10 MG tablet Indications: Essential (primary) hypertension ([facility]) TAKE 1 TABLET BY MOUTH DAILY 90 tablet 3 03/01/2024 Active rivaroxaban 15 mg oral tablet (4 sources) Factor Xa Inhibitor Start: 11-01-2024 End: 11-01-2025 rivaroxaban (Xarelto) 15 MG tablet Take 15 mg by mouth 11/01/2024 11/01/2025 Active Problems Active Problems Problem Classification Problem Date Documented Da te Episodic/Chronic Aortic; peripheral; and visceral artery aneurysms (8 sources) Thoracic aortic ectasia; Translations: [Thoracic aortic aneurysm, without rupture] Onset: 03-22-2021 Chronic Cardiac dysrhythmias (15 sources) Unspecified atrial fibrillation; Translations: [Paroxysmal atrial fibrillation] Onset: 04-20-2021 Chronic Chronic kidney disease (6 sources) Chronic kidney disease stage 3A ; Translations: [CKD stage 3a, GFR 45-59 ml/min ([facility])] Onset: 12-29-2024 12-29-2024 Chronic Conduction disorders (2 sources) Encounter for adjustment and management of automatic implantable cardiac defibrillator; Translations: [Encounter for adjustment and management of automatic implantable cardiac defibrillator] Onset: 01-04-2025 Chronic Congestive heart failure; nonhypertensive (8 sources) Chronic systolic heart failure; Translations: [Chronic systolic (congestive) heart failure] Onset: 05-26-2023 12-29-2024 Chronic Diabetes mellitus without complication (6 sources) Prediabetes; Translations: [Prediabetes] Onset: 12-29-2024 12-29-2024 Episodic Disorders of lipid metabolism (6 sources) Dyslipidemia; Translations: [Hyperlipidemia, unspecified] Onset: 12-29-2024 12-29-2024 Chronic Essential hypertension (6 sources) Essential hypertension; Translations: [Essential (primary) hypertension] Onset: 05-26-2023 12-29-2024 Chronic Heart valve disorders (1 source) 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; Translations: [RHEUMATIC D/O AORTIC TRICUSPID VALV] Onset: 10-09-2021 Chronic Other aftercare (5 sources) Encounter for therapeutic drug level monitoring; Translations: [ENC THERAPEUTC DRUG LEVL MONITORING] Onset: 07-26-2021 Episodic Other aftercare (1 source) FPC (current) use of anticoagulants; Translations: [MCC CURRNT USE ANTICOAGULANTS] Onset: 12-24-2021 Episodic Other aftercare (6 sources) Long-term current use of drug therapy; Translations: [Other rn long term care (current) drug therapy] Onset: 12-29-2024 12-29-2024 Episodic Other lower respiratory disease (2 sources) Other nonspecific abnormal finding of lung field; Translations: [Swelling, mass, or lump in chest] Onset: 01-27-2025 01-27-2025 Episodic Other nutritional; endocrine; and metabolic disorders (6 sources) Obesity caused by energy imbalance; Translations: [Class 1 obesity due to excess calories with serious comorbidity and body mass index (BMI) of 31.0 to 31.9 in adult] Onset: 12-29-2024 12-29-2024 Chronic Samantha-; endo-; and myocarditis; cardiomyopathy (except that caused by tuberculosis or sexually transmitted disease) (4 sources) Cardiomyopathy; Translations: [Cardiomyopathy, unspecified] Onset: 05-26-2023 12-29-2024 Chronic Thyroid disorders (2 sources) Thyroid nodule; Translations: [Nontoxic single thyroid nodule] Onset: 01-27-2025 01-27-2025 Chronic Unclassified (1 source) Aneurysm of the ascending aorta, without rupture; Translations: [Aneurysm of the ascending aorta, without rupture] Onset: 01-27-2025 Past or Other Problems Problem Classification Problem Date Documented Da te Episodic/Chronic Cancer of prostate (4 sources) History of malignant neoplasm of prostate; Translations: [Personal history of malignant neoplasm of prostate] Onset: 05-26-2023 12-29-2024 Episodic Mood disorders (4 sources) Mood disorders Onset: 12-29-2024 12-29-2024 Unclassified (1 source) Right lower lobe lung mass 01-27-2025 Unclassified (1 source) Aneurysm of the ascending aorta, without rupture; Translations: [Aneurysm of the ascending aorta, without rupture] Onset: 01-27-2025 Results Test Name Value Interpretation Reference Range Facility Office Visiton 01-27-2025 Follow-up visit [id number] Alexis Baez 1950 M Date Provider Department Center 01/27/2025 ROBERTO STOCKTON [facility] Family History Problem Relation Age of Onset Hypertension Father Heart failure Father Prostate cancer Father Hypertension Sister Family Status - Relation Status Age at Mother Father Sister Level of Service:77665 OK OFFICE/OUTPATIENT ESTABLISHED MOD MDM 30 MIN Reason for Visit and Comments: Hypertension [359358] Congestive Heart Failure [127] Aortic Aneurysm [452] Normal [facility] Orders Onlyon 01-27-2025 Orders Only [id number] Alexis Baez 1950 M Date Provider Department Center 01/27/2025 HUMBERTO BARRON [facility] [place] Family History Problem Relation Age of Onset Hypertension Father Heart failure Father Prostate cancer Father Hypertension Sister Family Status - Relation Status Age at Mother Father Sister Normal [facility] MLR HEMOGLOBIN A1Con 025 Glucose [Mass/Vol] 120 mg/dL [facility] HbA1c (Bld) [Mass fraction] 5.8 % 4.5 - 6.2 % [facility] Comment on above: ADA RECOMMENDED LIMI T 4.0 - 6.0 ADA THERAPEUTIC TARGET < 7.0 ACTION SUGGESTED > 7.0 [facility] ECHOCARDIO M/2D COMPLETEon 0 10-03-2021 ECHOCARDIO M/2D COMPLETE Patient: ALEXIS BAEZ Exam Date: 10/03/2021 : 1950 Gender:M Ordering : DR JOHN WALKER M.D. Admission #: [id number] Family : DR ERIC TRUJILLO . Order #: [id number] CLICK HERE TO VIEW EXAM ECHOCARDIOGRAM REPORT [...] aortic regurgitation. AORTIC ROOT: Aortic sinuses are [id number] enlarged. The ascending aorta is severely enlarged [...] Vidal M.D. on 10/04/2021 at 10:52 Normal [facility] Cardiovascular Lab Reporton 09-20-2021 Cardiovascular Lab Report [facility] #: [id number] Physician: Giorgi Davis MD Department of Service Date: 09/20/2021 Medicine Birthdate: 1950 Division of Room #: CC Cardiology Adult Cardiovascular Services [facility] [address] [place] [address] Cardiovascular Laboratory Report ATRIAL FIBRILLATION ABLATION PROCEDURE [...] perform PVI. Esophagus was mapped using the famPlusUND 3D mapping software and noted to be [...] in (more content not included)... Normal [facility] POC GLUCOSE LABon 09-20-2021 Glucose [Mass/Vol] 97 mg/dL Normal 70-100 The [facility] Comment on above: Performed By: #### [id number] #### [facility] [address] [facility]. [address] PROTHROMBIN TIMEon INR Coag (PPP) [Relative time] 1.29 {INR} High 0.91-1.16 [facility] Comment on above: Result Comment: ACCC P [...] 1995;108:231S-246S. Performed By: #### 5 [id number] #### [facility] [address] [facility] [place] [address], [facility] PT Coag (PPP) [Time] 16.1 s High 12.3-14.8 [facility] Comment on above: Result Comment: ALL RESULTS MUST BE INTERPRETED WITH RESPECT TO BLOOD DRAWING ARTIFACT OR DILUTION ERROR OF ANTICOAGULANT AT THE TIME OF SAMPLING. Performed By: #### 5 6101 #### [facility] [address] [facility] [place] [place] [address], [facility] BASIC METABOLIC PANELon 05-25 Calcium [Mass/Vol] 8.8 mg/dL Normal 8.6-10.3 The [facility] Comment on above: Performed By: #### 0 0071 #### [facility] [address] [place] [address], [facility] Chloride [Moles/Vol] 105 mmol/L Normal 98-107 [facility] Comment on above: Performed By: #### 0 0071 #### [facility] [address] [place] [address], [place] CO2 [Moles/Vol] 24 mmol/L Normal 21-31 [facility] Comment on above: Performed By: #### 0 0071 #### [facility] [address] [place] [address], [place] Creatinine [Mass/Vol] 1.31 mg/dL High 0.70-1.30 [facility] Comment on above: Performed By: #### 0 0071 #### [facility] [address] [place] [address], [facility] eGFR- non- 54 ml/min/1.73sq m Abnormal >60 The [facility] Comment on above: Performed By: #### 0 0071 #### [facility] [address] [place] [id number], [facility] GFR/1.73 sq M.predicted among blacks MDRD (S/P/Bld) [Vol rate/Area] mL/min/{1.73_m2} Normal >60 [facility] Comment on above: Performed By: #### 0 0071 #### [facility] [address] [place] [address], [place] Glucose [Mass/Vol] 104 mg/dL High 70-100 [facility] Comment on above: Performed By: #### 0 0071 #### [facility] [address] [place] [address], [place] Potassium [Moles/Vol] 5.3 mmol/L High 3.5-5.1 [facility] Comment on above: Performed By: #### 0 0071 #### [facility] [address] [place] [address], [facility] Sodium [Moles/Vol] 137 mmol/L Normal 136-145 [facility] Comment on above: Performed By: #### 0 0071 #### [facility] [address] [place] [address], [facility] Urea nitrogen [Mass/Vol] 24 mg/dL Normal 7-25 [facility] Comment on above: Performed By: #### 0 0071 #### [facility] [address] [place] [address], [facility] CBC COMPLETE BLOOD COUNTon Erythrocyte distribution width (RBC) [Ratio] 13.9 % Normal 11.5-15.0 [facility] Comment on above: Performed By: #### 5 0608 #### [facility] [address] [place] [address], [facility] Hematocrit (Bld) [Volume fraction] 50.2 % High 39.0-50.0 [facility] Comment on above: Performed By: #### 5 0608 #### [facility] [address] [place] [address], [facility] Hemoglobin (Bld) [Mass/Vol] 17.0 g/dL Normal 13.0-17.0 [facility] Comment on above: Performed By: #### 5 0608 #### [facility] [address] [place] [address], [facility] MCH (RBC) [Entitic mass] 31.3 pg Normal 27.0-33.0 [facility] Comment on above: Performed By: #### 5 0608 #### [facility] [address] [place] [address], [facility] MCHC (RBC) [Mass/Vol] 33.9 g/dL Normal 32.0-35.0 [facility] Comment on above: Performed By: #### 5 0608 #### [facility] [address] [facility] [place] [address], [facility] MCV (RBC) [Entitic vol] 92.3 fL Normal 82.0-98.0 [facility] Comment on above: Performed By: #### 5 0608 #### [facility] [address] [facility] [place] [address], [facility] Nucleated RBC/100 WBC (Bld) [Ratio] 0 % Normal 0-0 [facility] Comment on above: Performed By: #### 5 0608 #### [facility] [address] [facility] [place] [address], [facility] PLAT CNT 181 10*3/uL Normal 150-400 The [facility] Comment on above: Performed By: #### 5 0608 #### [facility] [address] [facility] [place] [address], [facility] RBC (Bld) [#/Vol] 5.44 10*6/uL Normal 4.20-5.70 The [facility] Comment on above: Performed By: #### 5 0608 #### [facility] [address] [facility] [place] [address], [facility] WBC (Bld) [#/Vol] 7.66 10*3/uL Normal 4.00-10.60 The [facility] Comment on above: Performed By: #### 5 0608 #### [facility] [address] Cardiovascular Lab Reporton 06-11-2021 Cardiovascular Lab Report [facility] #: [id number] Physician: Giorgi Davis MD Department of Service Date: 06/11/2021 Medicine Birthdate: 1950 Division of Room #: CC Cardiology Adult Cardiovascular Services [facility] [place] [address] Cardiovascular Laboratory Report DIRECT CARDIOVERSION PROCEDURE NOTE [...] Davis MD Date Trans: 06/11/2021 12:24 P/christine [id number] cc: Eric Trujillo M.D. [address] [facility] [address] Normal [facility] POC SARS COV2 ANTIGEN NEGATI VEon 06-11-2021 POC SARS COV2 ANTIGEN NEG Negative Normal NEGATIVE [facility] Comment on above: Result Comment: Nega tive [...] signs and symptoms consistent with COVID-19. The [employer] COVID-19 Ag Card is a lateral flow [...] Certificate of Accreditation. Performed By: #### 3 [facility] #### [facility] [address] [facility]. [address] FREE T4on 04-20-2021 Free T4 [Mass/Vol] 1.05 ng/dL Normal 0.78-2.19 The [facility] Comment on above: Performed By: #### F T4 #### [facility] [address] [place] [address] Marline Valle TSHon 04-20-2021 TSH 0.118 uIU/mL Critically low 0.470-4.680 The [facility] Comment on above: Performed By: #### T SH #### [facility] [address] [place], [place] [id number] Marline Valle TSH RANGE SEE BELOW Normal [facility] Comment on above: Result Comment: <0.3 4 UIU/ml HYPERTHYROID 0.34-5.60 UIU/ml EUTHYROID >5.60 UIU/ml HYPOTHYROID Performed By: #### T SH #### [facility] [address] [place] [address] Marline Valle CTA CHEST WO W CONon [...] JOSHUA BARBOZA Date: 2021-04-09 07:53 Normal [facility] CREATININEon 04-06-2021 Creatinine [Mass/Vol] 1.39 mg/dL Critically high 0.66-1.25 [facility] Comment on above: Performed By: #### C AGNES #### [facility] [address] [place] [address] Marlineadri Valle EGFR-AF JAPANESE >60 Normal >=60 The [facility] Comment on above: Performed By: #### C AGNES #### [facility] [address] [place], [place] [address] Marline Valle EGFR-NON AF JAPANESE 51 mL/min/1.73m2 Critically low >=60 [facility] Comment on above: Performed By: #### C AGNES #### [facility] [address] [place] [id number] Marline Chaneyen ECHOCARDIO M/2D COMPLETEon 0 03-21-2021 ECHOCARDIO M/2D COMPLETE Patient: ALEXIS BAEZ Exam Date: 03/21/2021 : 1950 Gender:M Ordering : ROBERTO ELIZABETH Admission #: [id number] Family : DR ERIC TRUJILLO . Order #: [id number] CLICK HERE TO VIEW EXAM ECHOCARDIOGRAM REPORT [...] Walker M.D. on 03/22/2021 at 11:39 Normal [facility] Vital Signs Date Time Vital Sign Value Performing Clinician Faci lity 12-29-2024 09:31-0400 Body height 179.1 cm Eric Trujillo MD Work Phone: [facility] 12-29-2024 09:31-0400 Body mass index (BMI) [Ratio] 31.1 kg/m2 Eric Trujillo MD Work Phone: [facility] 12-29-2024 09:31-0400 Body temperature 97.5 [degF] Eric Trujillo MD Work Phone: [facility] 12-29-2024 09:31-0400 Body weight 99.79 kg Eric Trujillo MD Work Phone: [facility] 12-29-2024 09:31-0400 Diastolic blood pressure 78 mm[Hg] Erci Trujillo MD Work Phone: [facility] 12-29-2024 09:31-0400 Heart rate 76 /min Eric Trujillo MD Work Phone: [facility] 12-29-2024 09:31-0400 Respiratory rate 20 /min Eric Trujillo MD Work Phone: [facility] 12-29-2024 09:31-0400 SaO2% (BldA) [Mass fraction] 96 % Eric Trujillo MD Work Phone: [facility] 12-29-2024 09:31-0400 Systolic blood pressure 132 mm[Hg] Eric Trujillo MD Work Phone: [facility] Healthcare Encounters Encounter Date Encounter Type Care Provider Facility Start: 01-27-2025 End: 01-27-2025 Telephone encounter Eric Trujillo MD Work Phone: [facility] Start: 01-27-2025 End: 01-27-2025 ambulatory ROBERTO [facility] Start: 01-07-2025 End: 01-07-2025 [facility] Result Encounter Eric Trujillo MD Work Phone: [facility] External Department Unsolicited Start: 01-07-2025 End: 01-07-2025 [facility] Result Encounter Eric Trujillo MD Work Phone: [facility] External Department Unsolicited Start: 01-04-2025 End: 01-04-2025 ambulatory [facility] Start: 12-29-2024 End: 12-29-2024 Bamboo flowsheet [...] fibrillation (CMS/HCC) Start: 12-29-2024 End: 12-29-2024 ambulatory ERIC TRUJILLO Not Available Start: 07-06-2024 End: 07-06-2024 ambulatory GIORGI DAVIS [facility] Start: 05-21-2022 Telephone encounter No One (Historic al) Referring Physician Comment on above: External Referrals/r esources Start: 11-23-2021 End: 12-21-[address] ERIC TRUJILLO Facility:[facility] Start: 10-23-2021 End: 11-22-[address] ERIC TRUJILLO Facility:[facility] Start: 10-03-2021 End: 10-04-[address] JOHN WALKER Facility:[facility] Start: 09-25-2021 End: 10-22-[address] ERIC TRUJILLO Facility:[facility] Start: 09-20-2021 End: 09-21-2021 ambulatory GIORGI DAVIS Facility:[facility] Start: 09-05-2021 End: 09-06-2021 ambulatory GIORGI DAVIS Facility:[facility] Start: 08-28-2021 End: 09-24-[address] ERIC TRUJILLO Facility:[facility] Start: 07-25-2021 End: 08-24-[address] ERIC TRUJILLO Facility:[facility] Start: 06-26-2021 End: 07-24-[address] ERIC TRUJILLO Facility:[facility] Start: 06-11-2021 End: 06-12-2021 ambulatory GIORGI DAVIS Facility:[facility] Start: 05-25-2021 End: 06-22-[address] ERIC TRUJILLO Facility:[facility] Start: 05-08-2021 End: 05-28-2021 ambulatory GIORGI DAVIS Facility:[facility] Start: 04-27-2021 End: 05-25-2021 ambulatory [...] 12-28-2020 End: 01-23-2021 ambulatory NAFISA CLEVELAND Facility:[facility] Procedures Date Procedure Procedure Detail Performing Clinician Start: 01-07-2025 MLR HEMOGLOBIN A1C Eric Trujillo MD Work Phone: Plan of Treatment Date Care Activity Detail Author Start: 12-29-2025 Medicare Annual Wellness (AWV) Medicare Annual Wellness (AWV) [facility] Start: 12-29-2025 Screening for malign ant neoplasm of colon Colorectal Cancer Screening [facility] Comment on above: Postponed from 04/23 (Patient Refused) Start: 07-04-2025 End: 07-04-2025 Patient encounter procedure 07/04/2025 8:00 AM EST Office Visit [facility] [address] [place] [phone] Eric Trujillo MD [address] [place] [id number] [facility] Start: 04-25-2025 Influenza vaccination Influenz a Vaccine (Season Ended) [facility] Start: 01-27-2025 End: 01-27-2026 CT Chest WO contrast CT chest wo IV contrast Imaging Routine Right lower lobe lung mass Expected: 01/27/2025, Expires: 01/27/2026 [facility] Work Phone: Comment on above: Expected: 01/27/2025 , Expires: 01/27/2026 Start: 01-27-2025 End: 01-27-2026 US Thyroid gland US thyroid Imaging Routine Thyroid nodule (CMS/HCC) Expected: 01/27/2025, Expires: 01/27/2026 [facility] Comment on above: Expected: 01/27/2025 , Expires: 01/27/2026 Start: 12-29-2024 End: 12-29-2025 Basic metabolic 1998 panel - Serum or Plasma Basic metabolic panel Lab Routine CKD stage 3a, GFR 45-59 ml/min (CMS/HCC) Expected: 12/29/2024 (Approximate), Expires: 12/29/2025 [facility] Comment on above: Expected: 12/29/2024 (Approximate), Expires: 12/29/2025 Start: 12-29-2024 End: 12-29-2025 CBC W Auto Differential panel - Blood CBC and differential Lab Routine Encounter for long-term current use of medication Expected: 12/29/2024 (Approximate), Expires: 12/29/2025 [facility] Comment on above: Expected: 12/29/2024 (Approximate), Expires: 12/29/2025 Start: 12-29-2024 End: 12-29-2025 Hemoglobin A1c/Hemoglobin.total in Blood Hemoglobin A1c Lab Routine Prediabetes Expected: 12/29/2024 (Approximate), Expires: 12/29/2025 [facility] Work Phone: Comment on above: Expected: 12/29/2024 (Approximate), Expires: 12/29/2025 Start: 12-29-2024 End: 12-29-2025 Hepatic function 2000 panel - Serum or Plasma Hepatic function panel Lab Routine Encounter for long-term current use of medication Expected: 12/29/2024 (Approximate), Expires: 12/29/2025 [facility] Comment on above: Expected: 12/29/2024 (Approximate), Expires: 12/29/2025 Start: 12-29-2024 End: 12-29-2025 Lipid 1996 panel - Serum or Plasma Lipid panel Lab Routine Dyslipidemia ([facility]) Expected: 12/29/2024 (Approximate), Expires: 12/29/2025 [facility] Comment on above: Expected: 12/29/2024 (Approximate), Expires: 12/29/2025 Start: 12-29-2024 End: 12-29-2025 Thyrotropin [Units/volume] in Serum or Plasma TSH Lab Routine Class 1 obesity due to excess calories with serious comorbidity and body mass index (BMI) of 31.0 to 31.9 in adult Expected: 12/29/2024 (Approximate), Expires: 12/29/2025 [facility] Comment on above: Expected: 12/29/2024 (Approximate), Expires: 12/29/2025 Start: 12-29-2024 End: 12-29-2024 Patient encounter procedure 12/29/2024 9:15 AM EDT Office Visit [facility] [address] [place] [address] Eric Trujillo MD [address] [place] [id number] Arrived [facility] Comment on above: Arrived Start: 06-20-2024 Screening for malign ant neoplasm of colon [facility] Start: 2002 Pneumococcal Vaccine : 65+ Years (1 of 1 - PCV) Pneumococcal Vaccine: 65+ Years (1 of 1 - PCV) [facility] Start: 1971 Pneumococcal Vaccine : 65+ Years (1 of 2 - PCV) Pneumococcal Vaccine: 65+ Years (1 of 2 - PCV) [facility] Start: 1950 Medicare Annual Wellness (AWV) Medicare Annual Wellness (AWV) [facility] Start: 1950 Screening for malign ant neoplasm of colon [facility] Payers Date Payer Category Payer Medicare (Managed Care) [employer] M EDICARE ADVANTAGE [id number] 2024 Medicare [id number] 2022 Private Health Insurance [employer] adam [id number] 2019 Unknown [id number] 1959 Unknown [id number] 1959 Unknown [id number] 1952 Unknown [id number] 2.16.840.1.017141.3.579.2 .647 1952 Unknown [id number] 2.16.840.1.216517.3.579.2 .647 1952 Unknown [id number] 2.16.840.1.608761.3.579.2 .647 1952 Unknown [id number] 2.16.840.1.548837.3.579.2 .647 1952 Unknown [id number] 2.16.840.1.642417.3.579.2 .593 1952 Unknown [id number] 2.16.840.1.452208.3.579.2 .593 1952 Unknown [id number] 2.16.840.1.100022.3.579.2 .593 1952 Unknown [id number] 2.16.840.1.070455.3.579.2 .593 1952 Unknown [id number] 2.16.840.1.912955.3.579.2 .593 1952 Unknown [id number] 2.16.840.1.179383.3.579.2 .593 1952 Unknown [id number] 2.16.840.1.742430.3.579.2 .593 1952 Unknown [id number] 2.16.840.1.019255.3.579.2 .593 1952 Unknown [id number] 2.16.840.1.703015.3.579.2 .593 1952 Unknown [id number] 2.16.840.1.416559.3.579.2 .593 1952 Unknown [id number] 2.16.840.1.050735.3.579.2 .593 1952 Unknown [id number] 2.16.840.1.583292.3.579.2 .593 1952 Unknown [id number] 2.16.840.1.833378.3.579.2 .593 1952 Unknown [id number] 2.16.840.1.686274.3.579.2 .593 1952 Unknown [id number] 2.16.840.1.971994.3.579.2 .593 1952 Unknown [id number] 2.16.840.1.103259.3.579.2 .593 1952 Unknown [id number] 2.16.840.1.737485.3.579.2 .1259 Social History Date Type Detail Facility Tobacco smoking stat [facility] Tobacco smoking consumption unknown [facility] Start: 1950 Sex Assigned At Not on file [facility] Start: 12-29-2024 Gender identity Not on file [facility] Start: 12-29-2024 Tobacco smoking stat [facility] Never smoked tobacco [facility] Start: 12-29-2024 Tobacco use and exposure Smokeless t obacco non-user [facility] Start: 12-29-2024 History of Social function [facility] Functional Status Date Assessment Result Facility 12-29-2024 Patient Health [facility] ionnaire 2 item (PHQ-2) [Reported] [facility] Telephone encounter Note 01-27-2025 Telephone Encounter - Eric Trujillo MD - 01/27/2025 5:06 PM EDT Note Date & Type Note Facility 01-27-2025 Telephone encount er Note Received fax of CT reports from 07/09/2023 that was previously not available and ordered by another physician. CT shows lung lesion and thyroid nodule. Need to check CT chest and US thyroid. Orders in chart, please fax to hospital. [facility] Healthcare Note 01-27-2025 Telephone Encounter - Eric Trujillo MD - 01/27/2025 5:06 PM EDT Note Date & Type Note Facility 01-27-2025 Miscellaneous Notes Formattin g of this note might be different from the original. Received fax of CT reports from 07/09/2023 that was previously not available and ordered by another physician. CT shows lung lesion and thyroid nodule. Need to check CT chest and US thyroid. Orders in chart, please fax to hospital. documented in this encounter [facility] Progress note 01-27-2025 Note Date & Type Note Facility 01-27-2025 Note Cardiovascular Medic [facility] SUBJECTIVE Chief Complaint Patient presents with Hypertension Congestive Heart Failure Aortic Aneurysm Alexis Baez is a 74 y.o. male here [...] was never called by them to review result either. Denies chest pain, SOB, palpitations, and bleeding [...] of an arrhythmia and is pending a new device check this month discussed with patient concern [...] He is doing well. otherwise Prior HPI: Alexis Baez is a 73 y.o. year old with [...] in 2015 he was subsequently taken for an ICD placement by Dr. Washington. Since then he has had recovery of his ejection fraction but of late has noted that his EF has been become more persistent especially since August 2020. He has noticed and states that he was taken off amiodarone by Dr. BRUCE due to adverse effects of amiodarone with regard to liver function Pt is s/p DCCV on 06/11/21 and is back on atrial flutter with Vpacing/ [place] conducntion. He underwent PVI+ CTI on 09/20/21. [...] cardioverter-defibrillator) in place SSS (sick sinus syndrome) ([facility]) CKD stage 3a, GFR 45-59 ml/min ([facility]) Class 1 obesity due to excess calories with serious comorbidity and body mass index (BMI) of 31.0 to 31.9 in adult Dyslipidemia Encounter for long-term current use of medication History of prostate cancer Medicare annual wellness visit, subsequent Prediabetes Past Medical History: Diagnosis Date Aneurysm Atrial fibrillation ([facility]) CHF (congestive heart failure) ([facility]) Hypertension Family History Problem Relation Name Age [...] kg (223 lb) SpO2 95% BMI 32.00 kg/m??? Smoking Status Never BSA 2.23 m??? Medications: Current Outpatient Medications: amLODIPine (Norvasc) 5 mg tablet, amlodipine 5 mg tablet TAKE 1 TABLET BY M (more content not included)... [facility] Progress note 01-27-2025 Note Date & Type Note Facility 01-27-2025 Note Patient is here toda y for a 1 year follow up. Patient states he has no cardiac complaints or symptoms. Patient states he feels good. Review of Systems Constitutional: Negative. [facility] History of Present illness Narrative 12-29-2024 Eric Trujillo MD - 12/29/2024 10:27 AM Ricardo Trujillo MD - 12/29/2024 10:27 AM Ricardo Trujillo MD - 12/29/2024 10:27 AM Ricardo Trujillo MD - 12/29/2024 10:27 AM EDT Note Date & Type Note Facility 12-29-2024 History of Presen t illness Narrative Associated Problem(s): Paroxysmal atrial fibrillation ([facility]) In NSR. Continue medication. Associated Problem(s): Essential hypertension ([facility]) BP controlled and monitor PRN. Associated Problem(s): [...] Relevant Orders TSH documented in this encounter [facility] Healthcare Note 05-21-2022 Telephone Encounter - Cecilia Kwon [facility] Service Spec - 05/21/2022 3:17 PM EDT Note Date & Type Note Facility 05-21-2022 Miscellaneous Notes Formattin g of this note might be different from the original. Patient: Alexis Baez Date of : 1950 Patient phone number: [phone] Referring Provider for the encounter: Giorgi Davis Requesting Provider: Reason for requesting visit (RFV/signs and symptoms/diagnosis): A Fib Person calling: rp fax Return call to: self Medical Records/Insurance Card scanned into [employer]: No Comments: NA documented in this encounter [facility] Evaluation note Note Date & Type [...] (CMS/HCC) Atrial fibrillation documented in this encounter [facility] Healthcare Evaluation note Note Date & Type Note [...] (CMS/HCC) Paroxysmal atrial fibrillation (CMS/HCC) Atrial fibrillation Thyroid nodule (CMS/HCC)- Primary Nontoxic uninodular goiter Right lower lobe lung mass documented in this encounter [facility] Healthcare Summary Purpose Family History No Family [...] and content) DATE CREATED AUTHOR 10/24/2021 [facility] DATE CREATED AUTHOR AUTHOR'S ORGANIZ ATION 12/24/2021 [facility] DATE CREATED AUTHOR AUTHOR'S ORGANIZ ATION 12/31/2024 [facility] EPIC DATE CREATED AUTHOR AUTHOR'S ORGANIZ ATION 01/31/2025 [facility] Source Comments (unrecognize d section and content) In the event this informatio n is protected by the Federal Confidentiality of Alcohol and Drug Abuse Patient Records regulations: The Federal rules restrict any use of the information to criminally investigate or prosecute any alcohol or drug abuse patient.[facility] Reason for Visit (unrecogniz ed section and content) Reason Comments External Referrals/resources Reason Comments Medicare Annual Wellness Visit Subsequen t wellness Care Teams (unrecognized sec tion and content) Range Management Specialist Relationship Specialty Start Date End Date Giorgi Davis MD [address] [place] [id number] Referring Cardiology 05/16/22 Range Management Specialist Relationship Specialty Start Date End Date Eric Trujillo MD [address] [place] [phone] PCP - General Family Medicine 12/29/24 Range Management Specialist Relationship Specialty Start Date End Date Eric Trujillo MD [address] [place] [address] PCP - General Family Medicine 12/29/24 Range Management Specialist Relationship Specialty Start Date End Date Eric Trujillo MD [address] [place] [address] PCP - General Family Medicine 12/29/24 Range Management Specialist Relationship Specialty Start Date End Date Eric Trujillo MD [address] [place] [address] PCP - General Family Medicine 12/29/24 FOR [...] BE BASED ON THE PRIMARY CLINICAL RECORDS. [employer] provides no warranty or guarantee of the accuracy or completeness of information in this document.
== END 2025-02-04 08:35 | disposition home or self-care (01) ==
LOC: CT 08:34
PROVIDERS: PCP Family Medicine; Visit Provider Thoracic Surgery (Cardiothoracic Vascular Surgery)
DX: I77.810 Thoracic aortic ectasia (principal); K80.20 Calculus of gallbladder without cholecystitis without obstruction
CPT/HCPCS: 71275; Q9967

== ENCOUNTER 2025-02-23 06:50 | Outpatient (OUT) | payer MEDICARE, SELFPAY ==
--- OUTSIDE RECORDS SUMMARY | 2025-02-09 | XMS_ITS | Encounter Summary ---
Author Organization [facility] Address [address] [place] [address] Care Team Providers Care Forestry Support Specialist Name Role Phone Eric Pittman MD Primary Care Provider Reason for Referral * Imaging (Routine) - Pending Review Specialty Diagnoses / Procedures Referred By Az alexander Referred To Contact Radiology Procedures CT transfer of outside films Doug Thomas MD [address] [place] [address] Phone: tel: fax: Referral ID Status Reason Start Date Expiration Date V isits Requested Visits Authorized [id number] Pending Review 02/09/2025 02/09/2026 1 1 Reason for Visit * Imaging (Routine) - Pending Review Specialty Diagnoses / Procedures Referred By Az alexander Referred To Contact Radiology Procedures CT transfer of outside films Doug Thomas MD [address] [place] [address] Phone: tel: fax: Referral ID Status Reason Start Date Expiration Date V isits Requested Visits Authorized [id number] Pending Review 02/09/2025 02/09/2026 1 1 Encounter Details Date Type Department Care Team (Latest Contact Info) Description 02/09/2025 - 02/09/2025 11:59 PM EDT Hospital Encounter [facility] Radiology External Films [address] [place] [address] Discharge Disposition: Home or Self Care () Social History Tobacco Use Types Packs/Day Years [...] on file documented as of this encounter Medications at Time of Discharge amLODIPine (Norvasc) 5 mg tablet amlodipine 5 mg tablet TAKE 1 TABLET BY MOUTH DAILY atorvastatin (Lipitor) 40 mg tablet atorvastatin 40 mg tablet TAKE 1 TABLET BY MOUTH AT BEDTIME carvedilol (Coreg) 12.5 mg tablet carvedilol 12.5 mg tablet TAKE 1 TABLET BY MOUTH TWICE DAILY lisinopril 10 mg tablet lisinopril 10 mg tablet TAKE 1 TABLET BY MOUTH DAILY rivaroxaban (Xarelto) 15 mg tabletIndications :Atrial fibrillation, unspecified type (CMS/HCC) Take 1 tablet (15 mg) by mouth daily with evening meal. Take with food. 90 tablet 3 11/01/2024 6 documented as of this encounter Plan of Treatment Not on file documented as of this encounter Procedures Procedure Name Priority Date/Time Associated Diagnosis Comments CT TRANSFER OF OUTSIDE FILMS Routine 02/09/2025 12:00 AM EDT documented in this encounter Results * CT transfer of outside films (02/09/2025 12:00 AM EDT) Narrative IMAGING - 02/09/2025 11:18 AM EDT This order has been auto-finalized and does not contain a result. Doug Thomas MD IMG CT PROCEDURES Final Result IMAGING documented in this encounter Visit Diagnoses Not on filedocumented in this encounter Care Teams Forestry Support Specialist Relationship Specialty Start Date End Date Naderer, Eric, MD [address] [place] [address] PCP - General 05/14/22 documented as of this encounter
--- OUTSIDE RECORDS SUMMARY | 2025-02-22 22:38 | XMS_ITS | Encounter Summary ---
Author Organization [facility] Address [address] [place] [address] Care Team Providers Care Title I Instructional Assistant Name Role Phone Unavailable Primary Care Provider Unavailabl e Reason for Referral * Other (Routine) - Pending Review Specialty Diagnoses / Procedures Referred By Az alexander Referred To Contact Radiology Diagnoses Examination for normal comparison for clinical research Procedures CT COMPARISON OF OUTSIDE FILMS Cayla Cox MD [address] [place] [address] Phone: tel: fax: Referral ID Status Reason Start Date Expiration Date V isits Requested Visits Authorized [id number] Pending Review 02/22/2025 02/22/2026 1 1 Reason for Visit * Other (Routine) - Pending Review Specialty Diagnoses / Procedures Referred By Az alexander Referred To Contact Radiology Diagnoses Examination for normal comparison for clinical research Procedures CT COMPARISON OF OUTSIDE FILMS Cayla Cox MD [address] [place] [address] Phone: tel: fax: Referral ID Status Reason Start Date Expiration Date V isits Requested Visits Authorized [id number] Pending Review 02/22/2025 02/22/2026 1 1 Encounter Details Date Type Department Care Team (Latest Contact Info) Description 02/22/2025 10:38 PM EDT - 02/22/2025 11:59 PM EDT Hospital Encounter [facility] [place] CT Scan [address] [place] [address] Cayla Cox MD [address] [place] [address] Examination for normal comparison for clinical research Discharge Disposition: Home or Self Care Social History Tobacco Use Types Packs/Day Years Used Date Smoking Tobacco: Never Assessed Sex and Gender Information Value Date Recorded Sex Assigned at Not on file Legal Sex Male 1:28 PM EDT Gender Identity Not on file Sexual Orientation Not on file documented as of this encounter Plan of Treatment Not on file documented as of this encounter Procedures Procedure Name Priority Date/Time Associated Diagnosis Comments CT COMPARISON OF OUTSIDE FILMS Routine 07/09/2023 4:31 AM EST Examination for normal comparison for clinical research documented in this encounter Results * CT COMPARISON OF OUTSIDE FILMS (07/09/2023 4:31 AM EST) Narrative [facility] - 02/23/2025 4:31 AM EDT Radiology exam is complete. No Radiologist dictation. Please follow up with ordering provider. us Cayla Cox MD IMG CT ORDERABLES Final Result [facility] documented in this encounter Visit Diagnoses Diagnosis Examination for normal comparison for clinical research Examination of participant in clinical trial documented in this encounter
--- OUTSIDE RECORDS SUMMARY | 2025-02-22 22:38 | XMS_ITS | Encounter Summary ---
Author Organization [facility] Address [address] [place] [address] Care Team Providers Care Material Control Associate Name Role Phone Unavailable Primary Care Provider Unavailabl e Reason for Referral * Other (Routine) - Open Specialty Diagnoses / Procedures Referred By Az alexander Referred To Contact Radiology Diagnoses Examination for normal comparison for clinical research Procedures CT COMPARISON OF OUTSIDE FILMS Cayla Cox MD [address] [place] [address] Phone: tel: fax: Referral ID Status Reason Start Date Expiration Date Visits Re quested Visits Authorized [id number] Open 02/22/2025 02/22/2026 1 1 Reason for Visit * Other (Routine) - Open Specialty Diagnoses / Procedures Referred By Az alexander Referred To Contact Radiology Diagnoses Examination for normal comparison for clinical research Procedures CT COMPARISON OF OUTSIDE FILMS Cayla oCx MD [address] [place] [address] Phone: tel: fax: Referral ID Status Reason Start Date Expiration Date Visits Re quested Visits Authorized [id number] Open 02/22/2025 02/22/2026 1 1 Encounter Details Date Type Department Care Team (Latest Contact Info) Description 02/22/2025 10:38 PM EDT - 02/22/2025 11:59 PM EDT Hospital Encounter [facility] [place] CT Scan [address] [place] [id number] Cayla Cox MD [address] [place] [address] Examination for normal comparison for clinical research [...] Comments CT COMPARISON OF OUTSIDE FILMS Routine 02/04/2025 4:30 AM EDT Examination for normal comparison for clinical research documented in this encounter Results * CT COMPARISON OF OUTSIDE FILMS (02/04/2025 4:30 AM EDT) Narrative [facility] - 02/23/2025 4:30 AM EDT Radiology exam is complete. No Radiologist dictation. Please follow up with ordering provider. us Cayla Cox MD IMG CT ORDERABLES Final Result [facility] documented in this encounter Visit Diagnoses Diagnosis Examination for normal comparison for clinical research Examination of participant in clinical trial documented in this encounter
--- OUTSIDE RECORDS SUMMARY | 2025-02-23 06:53 | XMS_ITS | Clinical Summary ---
Author Organization [facility] Address [address] [place], [place] [id number] Care Team Providers Care Psychiatric Therapist Name Role Phone Giorgi Davis MD Unavailable Social History Tobacco Use Types Packs/Day Years Used Date Smoking Tobacco: Never Assessed Sex and Gender Information Value Date Recorded Sex Assigned at Not on file Legal Sex Male 3:41 PM EDT Gender Identity Not on file Sexual Orientation Not on file Plan of Treatment Not on file Care Teams Psychiatric Therapist Relationship Specialty Start Date End Date Giorgi Davis MD [address] [place] [phone] Referring Cardiology 05/16/22
--- OUTSIDE RECORDS SUMMARY | 2025-02-23 06:53 | XMS_ITS | Referral Summary ---
Author Organization [facility] Address [address] [place] [address] Care Team Providers Care Business Excellence Leader Name Role Phone Eric Pittman MD Primary Care Provider [phone] Encounters Date Type Department Care Team Description 02/16/2025 Orders Only [facility] [address] [place] [address] Roseanne Brooks MA Ascending aorta dilatation (Primary Dx) 02/16/2025 Telephone [facility] Vascular Cardiothoracic Surgery [place] [address] [place] [address] Andi Sorto MA 02/09/2025 - 02/09/2025 11:59 PM EDT Hospital Encounter [facility] Radiology External Films [address] [facility] [place] [address] Discharge Disposition: Home or Self Care (01) 02/09/2025 Orders Only [facility] Vascular Cardiothoracic Surgery [place] [address] [place] [address] Maria Del Carmen Zheng, REANNA 01/27/2025 Orders Only [facility] [address] [place] [facility] [place] [address] Roseanne Brooks MA 01/27/2025 9:20 AM EDT Office Visit [facility] [address] [place] [address] Ligia Grayson CNP Aneurysm of ascending 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 (Primary Dx); Chronic systolic heart failure (CMS/HCC); Paroxysmal atrial fibrillation (CMS/HCC); History of radiofrequency ablation (RFA) for complex left atrial arrhythmia; Benign hypertensive heart disease with heart failure (CMS/HCC); SSS (sick sinus syndrome) (CMS/HCC); ICD (implantable cardioverter-defibrill ator) in place; Orthostatic hypotension 01/04/2025 3:15 PM EDT Ancillary Procedure [facility] [address] [place] [address] Encounter for implantable defibrillator reprogramming [...] 01/27/2025 9:17 AM EDT Plan of Treatment Not on file Procedures Procedure Name Priority Date/Time Associated Diagnosis Comments CT TRANSFER OF OUTSIDE FILMS Routine 02/09/2025 12:00 AM EDT CARDIAC DEVICE CHECK - IN CLINIC - ICD DUAL CHAMBER W/ PROG Routine 01/05/2025 1:09 PM EDT Encounter for implantable defibrillator reprogramming or check from Last 3 Months Results * CT transfer of outside films (02/09/2025 12:00 AM EDT) Narrative IMAGING - 02/09/2025 11:18 AM EDT This order has been auto-finalized and does not contain a result. us Doug Thomas MD IMG CT PROCEDURES Final Result IMAGING * CARDIAC DEVICE CHECK - IN CLINIC [...] Giorgi Davis MD CV IMPLANTABLE CARDIAC DEVICE ID OCEDURES Final Result from Last 3 Months Insurance [employer] MEDICARE ADVANTAGE Care Teams Business Excellence Leader Relationship Specialty Start Date End Date Eric Pittman MD [address] [place], [place] [phone] [facility] - General 05/14/22
--- OUTSIDE RECORDS SUMMARY | 2025-02-23 06:53 | XMS_ITS | CCD ---
Author Organization [facility] Care Team Providers Care Team Supervisor Name Role Phone GIORGI DAVIS Attending Unavailable [...] Attending Unavailable GLENN, ROBERTO Admitting Unavailable GLENNROBERTO DUNAWAY Consulting Unavailable GLENNROBERTO DUNAWAY Consulting Unavailable NADERER, DR ERIC Wheeler Primary Care Unavailable ROBERTO ELIZABETH Attending Unavailable GLENNROBERTO SWEENEY Admitting Unavailable MOUKARBEL, DR LOPEZ Consulting Unavailable RONNIE, DR ERIC Wheeler Primary Care Unavailable AARON, DR LOPEZ Attending Unavailable AARON, DR LOPEZ Admitting Unavailable RONNIE, DR BRAUN A Primary Care Unavailable NAFISA CLEVELAND Attending Unavailable NAFISA CLEVELAND Admitting Unavailable NADERER, DR ERIC Wheeler Primary Care Unavailable NAFISA CLEVELAND Attending Unavailable NAFISA CLEVELAND Admitting Unavailable NADEREYusuf, DR ERIC Wheeler Primary Care Unavailable NAFISA CLEVELAND Attending Unavailable CRISTOFER, NAFISA Admitting Unavailable NADERER, DR ERIC Wheeler Primary Care Unavailable SHAIKH BUCK Attending Unavailable CIELO, Admitting Unavailable NADERER, DR ERIC Wheeler Primary Care Unavailable CIELO, Attending Unavailable SHAIKH BUCK Admitting Unavailable NADEREYusuf, DR ERIC Wheeler Primary Care Unavailable NAFISA CLEVELAND Attending Unavailable CRISTOFER, NAFISA Admitting Unavailable Giorgi Davis MD Unavailable Eric Trujillo MD Primary Care Provider ERIC TRUJILLO Attending Unavailable ROBERTO ELIZABETH Attending Unavailable GIORGI DAVIS Referring Unavailable KRYSTA MARQUEZ Referring Unavailable GIORGI DAVIS Referring Unavailable Unavailable Primary Care Provider Unavailabl e Medications Current Medications Medication Drug Class(es) Dates Sig (Normalized) Sig (Original) amLODIPine 5 mg oral tablet (6 sources) Dihydropyridine Calcium Channel Luiz Start: 03-01-2024 take 1 tablet by mouth once daily amLODIPine (Norvasc) 5 MG tablet Indications: Essential (primary) hypertension TAKE 1 TABLET BY MOUTH DAILY 90 tablet 3 03/01/2024 Active atorvastatin 40 mg oral tablet (6 sources) HMG-CoA Reductase Inhibitor Start: 03-01-2024 take 1 tablet by mouth at bedtime atorvastatin (Lipitor) 40 MG tablet Indications: Hyperlipidemia, unspecified TAKE 1 TABLET BY MOUTH AT BEDTIME 90 tablet 3 03/01/2024 Active carvedilol 12.5 mg oral tablet (6 sources) alpha-Adrenergic Luiz, beta-Adrenergic Luiz Start: 03-01-2024 take 1 tablet by mouth twice daily carvedilol (Coreg) 12.5 MG tablet Indications: Essential (primary) hypertension TAKE 1 TABLET BY MOUTH TWICE DAILY 180 tablet 3 03/01/2024 Active lisinopril 10 mg oral tablet (6 sources) Angiotensin Converting Enzyme Inhibitor Start: 03-01-2024 take 1 tablet by mouth once daily lisinopril 10 MG tablet Indications: Essential (primary) hypertension TAKE 1 TABLET BY MOUTH DAILY 90 tablet 3 03/01/2024 Active rivaroxaban 15 mg oral tablet (5 sources) Factor Xa Inhibitor Start: 11-01-2024 End: 11-01-2025 rivaroxaban (Xarelto) 15 MG tablet Take 15 mg by mouth 11/01/2024 11/01/2025 Active Problems Active Problems Problem Classification Problem Date Documented Da te Episodic/Chronic Administrative/social admission (2 sources) Medical examinations/repor ts status 02-22-2025 Episodic Aortic; peripheral; and visceral artery aneurysms (8 sources) Thoracic aortic ectasia; Translations: [Thoracic aortic aneurysm, without rupture] Onset: 03-22-2021 Chronic Cardiac dysrhythmias (16 sources) Unspecified atrial fibrillation; Translations: [Paroxysmal atrial fibrillation] Onset: 04-20-2021 Chronic Chronic kidney disease (7 sources) Chronic kidney disease stage 3A ; Translations: [CKD stage 3a, GFR 45-59 ml/min (CMS/HCC)] Onset: 12-29-2024 12-29-2024 Chronic Conduction disorders (2 sources) Encounter for adjustment and management of automatic implantable cardiac defibrillator; Translations: [Encounter for adjustment and management of automatic implantable cardiac defibrillator] Onset: 07-06-2024 Chronic Congestive heart failure; nonhypertensive (9 sources) Chronic systolic heart failure; Translations: [Chronic systolic (congestive) heart failure] Onset: 05-26-2023 12-29-2024 Chronic Diabetes mellitus without complication (7 sources) Prediabetes; Translations: [Prediabetes] Onset: 12-29-2024 12-29-2024 Episodic Disorders of lipid metabolism (7 sources) Dyslipidemia; Translations: [Hyperlipidemia, unspecified] Onset: 12-29-2024 12-29-2024 Chronic Essential hypertension (7 sources) Essential hypertension; Translations: [Essential (primary) hypertension] Onset: 05-26-2023 12-29-2024 Chronic Heart valve disorders (1 source) 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; Translations: [RHEUMATIC D/O AORTIC TRICUSPID VALV] Onset: 10-09-2021 Chronic Other aftercare (5 sources) Encounter for therapeutic drug level monitoring; Translations: [ENC THERAPEUTC DRUG LEVL MONITORING] Onset: 07-26-2021 Episodic Other aftercare (1 source) 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; Translations: [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0 to 31.9 in adult] Onset: 12-29-2024 12-29-2024 Chronic Samantha-; endo-; and myocarditis; cardiomyopathy (except that caused by tuberculosis or sexually transmitted disease) (5 sources) Cardiomyopathy; Translations: [Cardiomyopathy, unspecified] Onset: 05-26-2023 12-29-2024 Chronic Thyroid disorders (3 sources) Thyroid nodule; Translations: [Nontoxic single thyroid nodule] Onset: 01-27-2025 01-27-2025 Chronic Unclassified (1 source) Aneurysm of the ascending aorta, without rupture; Translations: [Aneurysm of the ascending aorta, without rupture] Onset: 01-27-2025 Past or Other Problems Problem Classification Problem Date Documented Da te Episodic/Chronic Cancer of prostate (5 sources) History of malignant neoplasm of prostate; Translations: [Personal history of malignant neoplasm of prostate] Onset: 05-26-2023 12-29-2024 Episodic Mood disorders (5 sources) Mood disorders Onset: 12-29-2024 12-29-2024 Unclassified (1 source) Right lower lobe lung mass 01-27-2025 Unclassified (1 source) Aneurysm of the ascending aorta, without rupture; Translations: [Aneurysm of the ascending aorta, without rupture] Onset: 01-27-2025 Results Test Name Value Interpretation Reference Range Facility 36on 02-16-2025 36 Spoke with Dereck bunch he stated that patient needs to complete an Echo. Call placed to patient to inform him of this he stated that he is going to complete this at [place]. Will call patient back to see if this was scheduled. [facility] 36 Call patient to reschedule appt that he missed yesterday he stated that he didn't want to drive all the way up here and wait an hour and half to just be seen for 5 minutes. He stated that he just completed an CT if he can be told the results over the phone. [facility] Orders Onlyon 02-16-2025 Orders Only [id number] Alexis Baez 1950 M Date Provider Department Center 02/16/2025 Yesica5-HUMBERTO HORTON [facility] Family History Problem Relation Age of Onset Hypertension Father Heart failure Father Prostate cancer Father Hypertension Sister Family Status - Relation Status Age at Mother Father Sister [facility] Orders Onlyon 02-09-2025 Orders Only [id number] Alexis Baez 1950 M Date Provider Department Center 02/09/2025 2020-MENDEZ SALVADOR [facility] Family History Problem Relation Age of Onset Hypertension Father Heart failure Father Prostate cancer Father Hypertension Sister Family Status - Relation Status Age at Mother Father Sister [facility] CTA Chest vessels WO and W c ontrast Will 02-04-2025 [place] [address] CT Scan Report Signed Patient: ALEXIS BAEZ MR#: [id number] : 1950 Acct:[id number] Age/Sex: 74 / M ADM Date: 02/04/25 Loc: CT Attending Dr: Krysta Marquez M.D. Ordering Physician: Krysta Marquez M.D. Date of Service: 02/04/25 Procedure(s): CT angio chest Accession Number(s): [id number] cc: Eric Trujillo M.D. [place] [id number] Patient Name: ALEXIS BAEZ MRN: [id number] date: 1950 Sex: M Assigned Patient Location: CT Current Patient Location: CT Accession/Order Number: [id number] Exam Date: 02/04/2025 09:21 Report Date: 02/04/2025 09:38 At the request of: KRYSTA MARQUEZ MD Procedure: CT angio chest CTA CHEST WITH CONTRAST CLINICAL HISTORY: Ascending Aorta Dilation follow-up COMPARISON: 07/09/2023 TECHNIQUE: Spiral images were obtained through the chest following intravenous administration of 100 mL of Omnipaque 350. Images were reviewed using both narrow and wide window settings. Sagittal, coronal and 3 D volume-rendered reconstructions were performed and reviewed. This CT exam was performed using one or more following dose reduction techniques: Automated exposure control, adjustment of the mA and/or kV according to patient size, or use of iterative reconstruction technique. FINDINGS: There is a left-sided pacemaker. The heart is borderline enlarged. Minor coronary disease is visualized. There is no pericardial effusion. Similar aneurysmal dilatation of the ascending aorta is noted with diameter of 5 cm. No dissection is seen. There is adequate opacification of the pulmonary arteries. No emboli are identified. No pathologic lymphadenopathy is seen. A heterogeneously hypodense left thyroid nodule is again visualized. There are degenerative changes at the spine and suspected DISH. Calcified pleural plaque is present, predominantly over the hemidiaphragms. Fibrocalcific scarring is present at the left apex, similar to the prior. Linear scarring and/or atelectasis is present at the lower lobes along with a more rounded area at the right posterior costophrenic angle which is unchanged. There is no developing consolidation, effusion or discrete soft tissue nodules. No pneumothorax is seen. Limited cuts through the upper abdomen show cholelithiasis. CT/CT angio chest IMPRESSION: STABLE 5 CM ASCENDING AORTIC ANEURYSM, WITHOUT DISSECTION. NO PULMONARY EMBOLI. BORDERLINE CARDIOMEGALY. CALCIFIED PLEURAL PLAQUE ALONG WITH SCARRING AND/OR ATELECTASIS. SIMILAR THYROID NODULARITY. CHOLELITHIASIS. Impression dictated by: Tori Lepe M.D. 02/04/2025 9:38 AM Dictation Location: [place] [address] Electronically authenticated by: [id number] Y Date: 02/04/2025 09:38 Dictated By: Tori Lepe M.D. Signed By: 02/04/2541 DD/ 7 TD/TT: Construction Technician: [facility] Radiology, Radiologist, MD - 02/04/2025 [place] [address] CT Scan Report Signed Patient: ALEXIS BAEZ MR#: [id number] : 1950 Acct:[id number] Age/Sex: 74 / M ADM Date: 02/04/25 Loc: CT Attending Dr: Krysta Marquez M.D. Ordering Physician: Krysta Marquez M.D. Date of Service: 02/04/25 Procedure(s): CT angio chest Accession Number(s): [id number] cc: Eric Trujillo M.D. The [address] [address] Patient Name: ALEXIS BAEZ MRN: [facility]:[id number] date: 1950 Sex: M Assigned Patient Location: CT Current Patient Location: CT Accession/Order Number: [id number] Exam Date: 02/04/2025 09:21 Report Date: 02/04/2025 09:38 At the request of: KRYSTA MARQUEZ MD Procedure: CT angio chest CTA CHEST WITH CONTRAST CLINICAL HISTORY: Ascending Aorta Dilation follow-up COMPARISON: 07/09/2023 TECHNIQUE: Spiral images were obtained through the chest following intravenous administration of 100 mL of Omnipaque 350. Images were reviewed using both narrow and wide window settings. Sagittal, coronal and 3 D volume-rendered reconstructions were performed and reviewed. This CT exam was performed using one or more following dose reduction techniques: Automated exposure control, adjustment of the mA and/or kV according to patient size, or use of iterative reconstruction technique. FINDINGS: There is a left-sided pacemaker. The heart is borderline enlarged. Minor coronary disease is visualized. There is no pericardial effusion. Similar aneurysmal dilatation of the ascending aorta is noted with diameter of 5 cm. No dissection is seen. There is adequate opacification of the pulmonary arteries. No emboli are identified. No pathologic lymphadenopathy is seen. A heterogeneously hypodense left thyroid nodule is again visualized. There are degenerative changes at the spine and suspected DISH. Calcified pleural plaque is present, predominantly over the hemidiaphragms. Fibrocalcific scarring is present at the left apex, similar to the prior. Linear scarring and/or atelectasis is present at the lower lobes along with a more rounded area at the right posterior costophrenic angle which is unchanged. There is no developing consolidation, effusion or discrete soft tissue nodules. No pneumothorax is seen. Limited cuts through the upper abdomen show cholelithiasis. CT/CT angio chest IMPRESSION: STABLE 5 CM ASCENDING AORTIC ANEURYSM, WITHOUT DISSECTION. NO PULMONARY EMBOLI. BORDERLINE CARDIOMEGALY. CALCIFIED PLEURAL PLAQUE ALONG WITH SCARRING AND/OR ATELECTASIS. SIMILAR THYROID NODULARITY. CHOLELITHIASIS. Impression dictated by: Tori Lepe M.D. 02/04/2025 9:38 AM Dictation Location: [place] [address] Electronically authenticated by: [id number] Y Date: 02/04/2025 09:38 Dictated By: Tori Lepe M.D. Signed By: 02/04/25 0941 DD/ TD/TT: Construction Technician: [facility] [employer] Radiology Study observation (narrative) [facility] CTA Chest vessels WO and W c ontrast IVOrdered By: Radiologist Radiology on 02-04-2025 [facility] [employer] Work Phone: Office Visiton 01-27-2025 Follow-up visit [id number] Alexis Baez 1950 Date Provider Department Center 01/27/2025 ROBERTO STOCKTON Family History Problem Relation Age of Onset Hypertension Father Heart failure Father Prostate cancer Father Hypertension Sister Family Status - Relation Status Age at Mother Father Sister Level of Service:83636 OR OFFICE/OUTPATIENT ESTABLISHED MOD MDM 30 MIN Reason for Visit and Comments: Hypertension [783010] Congestive Heart Failure [127] Aortic Aneurysm [452] Normal [facility] Orders Onlyon 01-27-2025 Orders Only [id number] Alexis Baez 1950 Date Provider Department Center 01/27/2025 HUMBERTO BARRON Family History Problem Relation Age of Onset Hypertension Father Heart failure Father Prostate cancer Father Hypertension Sister Family Status - Relation Status Age at Mother Father Sister Normal [facility] MLR HEMOGLOBIN A1Con 025 Glucose [Mass/Vol] 120 mg/dL [facility] HbA1c (Bld) [Mass fraction] 5.8 % 4.5 - 6.2 % [facility] Comment on above: ADA RECOMMENDED LIMI T 4.0 - 6.0 ADA THERAPEUTIC TARGET < 7.0 ACTION SUGGESTED > 7.0 [facility] ECHOCARDIO M/2D COMPLETEon 0 10-03-2021 ECHOCARDIO M/2D COMPLETE Patient: ALEXIS BAEZ Exam Date: 10/03/2021 : 1950 Gender:M Ordering : DR JOHN WALKER M.D. Admission #: [id number] Family : DR ERIC TRUJILLO . Order #: [id number] CLICK HERE TO VIEW EXAM ECHOCARDIOGRAM REPORT [...] aortic regurgitation. AORTIC ROOT: Aortic sinuses are kxqh-jc-oczidnslod enlarged. The ascending aorta is severely enlarged [...] M.D. on 10/04/2021 at 10:52 Normal The [facility] Cardiovascular Lab Reporton 09-20-2021 Cardiovascular Lab Report [facility] Patient Name: [facility] MR #: [id number] Physician: Giorgi Davis MD Department of Service Date: 09/20/2021 Medicine Birthdate: 1950 Division of Room #: Cardiology Adult Cardiovascular Services [place] [address] Cardiovascular Laboratory Report ATRIAL FIBRILLATION ABLATION PROCEDURE [...] perform PVI. Esophagus was mapped using the [employer] 3D mapping software and noted to be [...] in (more content not included)... Normal The [facility] POC GLUCOSE LABon 09-20-2021 Glucose [Mass/Vol] 97 mg/dL Normal 70-100 [facility] Comment on above: Performed By: #### 8 [id number] #### [facility] [address] [facility] PROTHROMBIN TIMEon 2 INR Coag (PPP) [Relative time] 1.29 {INR} High 0.91-1.16 The [facility] Comment on above: Result Comment: ACCC P [...] 1995;108:231S-246S. Performed By: #### 5 6101 #### [facility] [address] [facility]. [address] PT Coag (PPP) [Time] 16.1 s High 12.3-14.8 [facility] Comment on above: Result Comment: ALL RESULTS MUST BE INTERPRETED WITH RESPECT TO BLOOD DRAWING ARTIFACT OR DILUTION ERROR OF ANTICOAGULANT AT THE TIME OF SAMPLING. Performed By: #### 5 6101 #### [facility] [address] [facility]. [address] BASIC METABOLIC PANELon 05-25 Calcium [Mass/Vol] 8.8 mg/dL Normal 8.6-10.3 [facility] Comment on above: Performed By: #### 0 0071 #### [facility] [address] [facility] [place] [address], [facility] Chloride [Moles/Vol] 105 mmol/L Normal 98-107 [facility] Comment on above: Performed By: #### 0 0071 #### [facility] [address] [facility] [address], [facility] CO2 [Moles/Vol] 24 mmol/L Normal 21-31 [facility] Comment on above: Performed By: #### 0 0071 #### [facility] [address] [place] [address], [facility] Creatinine [Mass/Vol] 1.31 mg/dL High 0.70-1.30 The [facility] Comment on above: Performed By: #### 0 0071 #### [facility] [address] [place] [address], [facility] eGFR- non- 54 ml/min/1.73sq m Abnormal >60 The [facility] Comment on above: Performed By: #### 0 0071 #### [facility] [address] [facility] [place] [address], [facility] GFR/1.73 sq M.predicted among blacks MDRD (S/P/Bld) [Vol rate/Area] mL/min/{1.73_m2} Normal >60 The [facility] Comment on above: Performed By: #### 0 0071 #### [facility] [address] [facility] [place] [address], [facility] Glucose [Mass/Vol] 104 mg/dL High 70-100 [facility] Comment on above: Performed By: #### 0 0071 #### [facility] [address] [facility] [place] [address], [facility] Potassium [Moles/Vol] 5.3 mmol/L High 3.5-5.1 [facility] Comment on above: Performed By: #### 0 0071 #### [facility] [address] [facility] [place] [id number], [facility] Sodium [Moles/Vol] 137 mmol/L Normal 136-145 [facility] Comment on above: Performed By: #### 0 0071 #### [facility] [address] [place] [address], [facility] Urea nitrogen [Mass/Vol] 24 mg/dL Normal 7-25 The [facility] Comment on above: Performed By: #### 0 0071 #### [facility] [address] [facility]. [address] CBC COMPLETE BLOOD COUNTon Erythrocyte distribution width (RBC) [Ratio] 13.9 % Normal 11.5-15.0 The [facility] Comment on above: Performed By: #### 5 0608 #### [facility] [address] [facility] [address] Hematocrit (Bld) [Volume fraction] 50.2 % High 39.0-50.0 The [facility] Comment on above: Performed By: #### 5 0608 #### [facility] [address] [facility]. [address] Hemoglobin (Bld) [Mass/Vol] 17.0 g/dL Normal 13.0-17.0 The [facility] Comment on above: Performed By: #### 5 0608 #### [facility] [address] [facility]. [address] MCH (RBC) [Entitic mass] 31.3 pg Normal 27.0-33.0 The [facility] Comment on above: Performed By: #### 5 0608 #### [facility] [address] [facility]. [address] MCHC (RBC) [Mass/Vol] 33.9 g/dL Normal 32.0-35.0 The [facility] Comment on above: Performed By: #### 5 0608 #### [facility] [address] [facility]. [address] MCV (RBC) [Entitic vol] 92.3 fL Normal 82.0-98.0 The [facility] Comment on above: Performed By: #### 5 0608 #### [facility] [address] [facility]. [address] Nucleated RBC/100 WBC (Bld) [Ratio] 0 % Normal 0-0 The [facility] Comment on above: Performed By: #### 5 0608 #### [facility] [address] [facility]. [address] PLAT CNT 181 10*3/uL Normal 150-400 The [facility] Comment on above: Performed By: #### 5 0608 #### [facility] [address] [facility] [place] [address], [facility] RBC (Bld) [#/Vol] 5.44 10*6/uL Normal 4.20-5.70 The [facility] Comment on above: Performed By: #### 5 0608 #### [facility] [address] [facility] [place] [address], [facility] WBC (Bld) [#/Vol] 7.66 10*3/uL Normal 4.00-10.60 The [facility] Comment on above: Performed By: #### 5 0608 #### [facility] [address] Cardiovascular Lab Reporton 06-11-2021 Cardiovascular Lab Report [facility] Patient Name: [facility] MR #: [id number] Physician: Giorgi Davis MD Department of Service Date: 06/11/2021 Medicine Birthdate: 1950 Division of Room #: Cardiology Adult Cardiovascular Services [place] [address] Cardiovascular Laboratory Report DIRECT CARDIOVERSION PROCEDURE NOTE [...] by: Giorgi Davis MD 06/12/2021 09:10 A iGorgi Davis MD Date Dict: 06/11/2021/12:09 P/Giorgi Davis MD Date Trans: 06/11/2021 12:24 P/mmo [id number] cc: Eric Trujillo M.D. [address] [facility] [address] Normal The [facility] POC SARS COV2 ANTIGEN NEGATI VEon 06-11-2021 POC SARS COV2 ANTIGEN NEG Negative Normal NEGATIVE The [facility] Comment on above: Result Comment: Nega tive [...] signs and symptoms consistent with COVID-19. The [employer] COVID-19 Ag Card is a lateral flow [...] Certificate of Accreditation. Performed By: #### 3 1977 #### [address] [place] [address], [facility] FREE T4on 04-20-2021 Free T4 [Mass/Vol] 1.05 ng/dL Normal 0.78-2.19 The [facility] [place] Comment on above: Performed By: #### F T4 #### [facility] [address] [place], [place] [address] Marline Valle TSHon 04-20-2021 TSH 0.118 uIU/mL Critically low 0.470-4.680 [facility] Comment on above: Performed By: #### T SH #### [facility] [address] [place] [address] [facility] RANGE SEE BELOW Normal [facility] Comment on above: Result Comment: <0.3 4 UIU/ml HYPERTHYROID 0.34-5.60 UIU/ml EUTHYROID >5.60 UIU/ml HYPOTHYROID Performed By: #### T SH #### [facility] [address] [place] [address] Marline Valle CTA CHEST WO W CONon [...] by: JOSHUA BARBOZA Date: 2021-04-09 07:53 Normal [facility] CREATININEon 04-06-2021 Creatinine [Mass/Vol] 1.39 mg/dL Critically high 0.66-1.25 [facility] Comment on above: Performed By: #### C AGNES #### [facility] [address] [place] [address] Marline Valle EGFR-AF AFGHAN >60 Normal >=60 [facility] Comment on above: Performed By: #### C AGNES #### [facility] [address] [address] Marline Valle EGFR-NON AF AFGHAN 51 mL/min/1.73m2 Critically low >=60 [facility] Comment on above: Performed By: #### C AGNES #### [facility] [address] [place] [address] Marline Valle ECHOCARDIO M/2D COMPLETEon 0 03-21-2021 ECHOCARDIO M/2D COMPLETE Patient: ALEXIS BAEZ Exam Date: 03/21/2021 : 1950 Gender:M Ordering : ROBERTO ELIZABETH Admission #: [id number] Family : DR ERIC TRUJILLO . Order #: [id number] CLICK HERE TO VIEW EXAM ECHOCARDIOGRAM REPORT [...] Walker M.D. on 03/22/2021 at 11:39 Normal [facility] Vital Signs Date Time Vital Sign Value Performing Clinician Dorian torres 12-29-2024 09:31-0400 Body height 179.1 cm Eric Trujillo MD Work Phone: [facility] 12-29-2024 09:31-0400 Body mass index (BMI) [Ratio] 31.1 kg/m2 Eric Trujillo MD Work Phone: [facility] 12-29-2024 09:31-0400 Body temperature 97.5 [degF] Eric Trujillo MD Work Phone: [facility] 12-29-2024 09:31-0400 Body weight 99.79 kg Eric Trujillo MD Work Phone: [facility] 12-29-2024 09:31-0400 Diastolic blood pressure 78 mm[Hg] Eric Trujillo MD Work Phone: [facility] 12-29-2024 09:31-0400 Heart rate 76 /min Eric Trujillo MD Work Phone: [facility] 12-29-2024 09:31-0400 Respiratory rate 20 /min Eric Trujillo MD Work Phone: [facility] 12-29-2024 09:31-0400 SaO2% (BldA) [Mass fraction] 96 % Eric Trujillo MD Work Phone: [facility] 12-29-2024 09:31-0400 Systolic blood pressure 132 mm[Hg] Eric Trujillo MD Work Phone: [facility] Healthcare Encounters Encounter Date Encounter Type Care Provider Facility Start: 02-22-2025 End: 02-22-2025 Patient encounter procedure Cayla Cox MD Work Phone: [facility] Work Phone: Start: 02-22-2025 End: 02-22-2025 Subsequent hospital visit by physician Cayla Cox MD Work Phone: [facility] CT Scan Comment on above: Examination for norm al comparison for clinical research Start: 02-09-2025 End: 02-09-2025 ambulatory KRYSTA [facility] Start: 02-04-2025 End: 02-04-2025 Clinisync Result Encounter Generic External Data Provider [facility] External Department Unsolicited Start: 02-04-2025 End: 02-04-2025 Clinisync Result Encounter Generic External Data Provider [facility] External Department Unsolicited Start: 01-27-2025 End: 01-27-2025 Telephone encounter Eric Trujillo MD Work Phone: [facility] Start: 01-27-2025 End: 01-27-2025 ambulatory [facility] Start: 01-07-2025 End: 01-07-2025 Clinisync Result Encounter Eric Trujillo MD Work Phone: [facility] External Department Unsolicited Start: 01-07-2025 End: 01-07-2025 Clinisync Result Encounter Eric Trujillo MD Work Phone: [facility] External Department Unsolicited Start: 01-04-2025 End: 01-04-2025 ambulatory [facility] Start: 12-29-2024 End: 12-29-2024 Bamboo flowsheet [...] Start: 07-06-2024 End: 07-06-2024 ambulatory GIORGI DAVIS [facility] Start: 05-21-2022 Telephone encounter No One (Historic al) Referring Physician Comment on above: External Referrals/r esources Start: 11-23-2021 End: 12-21-[address] ERIC TRUJILLO Facility:[facility] Start: 10-23-2021 End: 11-22-[address] ERIC TRUJILLO Facility:[facility] Start: 10-03-2021 End: 10-04-[address] JOHN WALKER Facility:[facility] Start: 09-25-2021 End: 10-22-[address] ERIC TRUJILLO Facility:[facility] Start: 09-20-2021 End: 09-21-2021 ambulatory GIORGI DAVIS Facility:[facility] Start: 09-05-2021 End: 09-06-2021 ambulatory GIORGI DAVIS Facility:[facility] Start: 08-28-2021 End: 09-24-[address] ERIC TRUJILLO Facility:[facility] Start: 07-25-2021 End: 08-24-[address] ERIC TRUJILLO Facility:[facility] Start: 06-26-2021 End: 07-24-[address] ERIC TRUJILLO Facility:[facility] Start: 06-11-2021 End: 06-12-2021 ambulatory GIORGI DAVIS Facility:[facility] Start: 05-25-2021 End: 06-22-[address] ERIC TRUJILLO Facility:[facility] Start: 05-08-2021 End: 05-28-2021 ambulatory GIORGI DAVIS Facility:[facility] Start: 04-27-2021 End: 05-25-2021 ambulatory [...] Date Procedure Procedure Detail Performing Clinician Start: 02-04-2025 Ct angiography chest w/contrast/noncontrast Generic External Data Provider Start: 01-07-2025 MLR HEMOGLOBIN A1C Eric Trujillo MD Work Phone: Plan of Treatment Date Care Activity Detail Author Start: 2027 Respiratory Syncytia l Virus (RSV) or age 60 yrs+ (1 - 1-dose 75+ series) Respiratory Syncytial Virus (RSV) or age 60 yrs+ (1 - 1-dose 75+ series) [facility] Start: 12-29-2025 Medicare Annual Well ness (AWV) Medicare Annual Wellness (AWV) [facility] Healthcare Start: 12-29-2025 Screening for malign ant neoplasm of colon Colorectal Cancer Screening [facility] Comment on above: Postponed from 04/23 (Patient Refused) Start: 07-04-2025 End: 07-04-2025 Patient encounter procedure 07/04/2025 8:00 AM EST Office Visit [facility] [address] [place] [address] Eric Trujillo MD [address] [place] [address] [facility] Start: 04-25-2025 Influenza vaccination Influenz a Vaccine (Season Ended) [facility] Start: 03-25-2025 Influenza vaccination Flu vaccine (# 1) [facility] Start: 01-27-2025 End: 01-27-2026 CT Chest WO contrast CT chest wo IV contrast Imaging Routine Right lower lobe lung mass Expected: 01/27/2025, Expires: 01/27/2026 [facility] Work Phone: Comment on above: Expected: 01/27/2025 , Expires: 01/27/2026 Start: 01-27-2025 End: 01-27-2026 US Thyroid gland US thyroid Imaging Routine Thyroid nodule (CMS/HCC) Expected: 01/27/2025, Expires: 01/27/2026 [facility] Comment on above: Expected: 01/27/2025 , Expires: 01/27/2026 Start: 12-29-2024 End: 12-29-2025 Basic metabolic 1998 panel - Serum or Plasma Basic metabolic panel Lab Routine CKD stage 3a, GFR 45-59 ml/min ([facility]/HCC) Expected: 12/29/2024 (Approximate), Expires: 12/29/2025 [facility] Comment on above: Expected: 12/29/2024 (Approximate), Expires: 12/29/2025 Start: 12-29-2024 End: 12-29-2025 CBC W Auto Differential panel - Blood CBC and differential Lab Routine Encounter for long-term current use of medication Expected: 12/29/2024 (Approximate), Expires: 12/29/2025 [facility] Comment on above: Expected: 12/29/2024 (Approximate), Expires: 12/29/2025 Start: 12-29-2024 End: 12-29-2025 Hemoglobin A1c/Hemoglobin.total in Blood Hemoglobin A1c Lab Routine Prediabetes Expected: 12/29/2024 (Approximate), Expires: 12/29/2025 [facility] Work Phone: Comment on above: Expected: 12/29/2024 (Approximate), Expires: 12/29/2025 Start: 12-29-2024 End: 12-29-2025 Hepatic function 2000 panel - Serum or Plasma Hepatic function panel Lab Routine Encounter for long-term current use of medication Expected: 12/29/2024 (Approximate), Expires: 12/29/2025 [facility] Comment on above: Expected: 12/29/2024 (Approximate), Expires: 12/29/2025 Start: 12-29-2024 End: 12-29-2025 Lipid 1996 panel - Serum or Plasma Lipid panel Lab Routine Dyslipidemia ([facility]/HCC) Expected: 12/29/2024 (Approximate), Expires: 12/29/2025 [facility] Healthcare Comment on above: Expected: 12/29/2024 (Approximate), Expires: 12/29/2025 Start: 12-29-2024 End: 12-29-2025 Thyrotropin [Units/volume] in Serum or Plasma TSH Lab Routine Class 1 obesity due to excess calories with serious comorbidity and body mass index (BMI) of 31.0 to 31.9 in adult Expected: 12/29/2024 (Approximate), Expires: 12/29/2025 [facility] Comment on above: Expected: 12/29/2024 (Approximate), Expires: 12/29/2025 Start: 12-29-2024 End: 12-29-2024 Patient encounter procedure 12/29/2024 9:15 AM EDT Office Visit [facility] [address] [place] [address] Eric Trujillo MD [address] [place] [address] Arrived [facility] Comment on above: Arrived Start: 06-20-2024 Screening for malign ant neoplasm of colon [facility] Start: 04-25-2024 COVID-19 Vaccine ( season) COVID-19 Vaccine ( season) [facility] Start: 2002 Pneumococcal Vaccine : 65+ Years (1 of 1 - PCV) Pneumococcal Vaccine: 65+ Years (1 of 1 - PCV) [facility] Start: 1971 DTaP/Tdap/Td vaccine (1 - Tdap) DTaP/Tdap/Td vaccine (1 - Tdap) [facility] Start: 1971 Pneumococcal Vaccine : 65+ Years (1 of 2 - PCV) Pneumococcal Vaccine: 65+ Years (1 of 2 - PCV) [facility] Start: 1952 Medicare Annual Well ness (AWV) Medicare Annual Wellness (AWV) [facility] Start: 1950 Screening for malign ant neoplasm of colon [facility] End: 02-22-2025 Study Interpretation of outside study [facility] Comment on above: 1 Occurrences starti ng 02/22/2025 until 02/22/2025 Payers Date Payer Category Payer Medicare (Managed Care) [employer] M [employer] ADVANTAGE [id number] 2024 Medicare [id number] 2022 Private Health Insurance AARP Wy mber [id number] 2019 Unknown [id number] 1959 Unknown [id number] 1959 Unknown [id number] 1950 Unknown [id number] 2.16840.1.959462.3.579.2 .647 1950 Unknown [id number] 2.16840.1.369333.3.579.2 .647 1950 Unknown [id number] 2.16.840.1.104806.3.579.2 .647 1952 Unknown [id number] 2.16840.1.035511.3.579.2 .647 1950 Unknown [id number] 2.16.840.1.671651.3.579.2 .593 1952 Unknown [id number] 2.16.840.1.694448.3.579.2 .593 1952 Unknown [id number] 2.16.840.1.707331.3.579.2 .593 1952 Unknown [id number] 2.16.840.1.209120.3.579.2 .593 1952 Unknown [id number] 2.16.840.1.039785.3.579.2 .593 1952 Unknown [id number] 2.16.840.1.343858.3.579.2 .593 1952 Unknown [id number] 2.16.840.1.795554.3.579.2 .593 1952 Unknown [id number] 2.16.840.1.620209.3.579.2 .593 1952 Unknown [id number] 2.16.840.1.166706.3.579.2 .593 1952 Unknown [id number] 2.16.840.1.668766.3.579.2 .593 1952 Unknown [id number] 2.16.840.1.585312.3.579.2 .593 1952 Unknown [id number] 2.16.840.1.324643.3.579.2 .593 1952 Unknown [id number] 2.16.840.1.353266.3.579.2 .593 1952 Unknown [id number] 2.16.840.1.676815.3.579.2 .593 1952 Unknown [id number] 2.16.840.1.844717.3.579.2 .593 1952 Unknown [id number] 2.16.840.1.849156.3.579.2 .593 1952 Unknown [id number] 2.16.840.1.633518.3.579.2 .1259 Social History Date Type Detail Facility Tobacco smoking status NHIS Tobacco smoking consumption unknown [facility] Start: 1950 Sex Assigned At Not on file [facility] Start: 12-29-2024 Gender identity Not on file [facility] Start: 12-29-2024 Tobacco smoking status MTIS Never smoked tobacco [facility] Start: 12-29-2024 Tobacco use and exposure Smokeless tobacco non-user [facility] Start: 12-29-2024 History of Social function [facility] Start: 02-16-2025 Sex Male (finding) [facility] Anil powell [facility] Functional Status Date Assessment Result Facility 12-29-2024 Patient Health Quest ionnaire 2 item (PHQ-2) [Reported] [facility] Clinical Notes 05-21-2022 to 01-27-2025 Telephone Encounter - Eric Trujillo MD - 01/27/2025 5:06 PM EDTTelephone Encounter - Eric Trujillo MD - 01/27/2025 5:06 PM EDTMnapoleon Trujillo MD - 12/29/2024 10:27 AM EDT Note Date & Type Note Facility 01-27-2025 Telephone encounter Note Received fax of CT reports from 07/09/2023 that was previously not available and ordered by another physician. CT shows lung lesion and thyroid nodule. Need to check CT chest and US thyroid. Orders in chart, please fax to hospital. [facility] 01-27-2025 Miscellaneous Notes Received fax of CT reports from 07/09/2023 that was previously not available and ordered by another physician. CT shows lung lesion and thyroid nodule. Need to check CT chest and US thyroid. Orders in chart, please fax to hospital. documented in this encounter [facility] 01-27-2025 Note Patient is here toda y for a 1 year follow up. Patient states he has no cardiac complaints or symptoms. Patient states he feels good. Review of Systems Constitutional: Negative. [facility] 01-27-2025 Note Cardiovascular Medic [facility] SUBJECTIVE Chief Complaint Patient presents with Hypertension [...] is back on atrial flutter with Vpacing/ [place] conducntion. He underwent PVI+ CTI on 09/20/21. [...] TABLET BY M (more content not included)... [facility] 12-29-2024 History of Presen t illness Narrative [...] HFrEF (heart failure with reduced ejection fraction) ([facility]/HCC) Edema stable and follow with cardiology. Dyslipidemia [...] Relevant Orders TSH documented in this encounter [facility] 05-21-2022 Miscellaneous Notes Patient: Alexis Baez Date of : 1950 Patient phone number: [phone] Referring Provider for the encounter: Giorgi Davis Requesting Provider: Reason for requesting visit (RFV/signs and symptoms/diagnosis): A Fib Person calling: rp fax Return call to: self Medical Records/Insurance Card scanned into [employer]: No Comments: NA Electronically signed by Cecilia Kwon [facility] Service Spec at 05/21/2022 3:25 PM EDT documented in this encounter [facility] Evaluation note Diagnosis Medicare annual wellness visit, [...] (CMS/HCC) Atrial fibrillation documented in this encounter [facility] HealthcareEvaluation note* Diagnosis Medicare annual wellness visit, subsequent- Primary [...] lobe lung mass documented in this encounter [facility] HealthcareEvaluation note* Diagnosis Examination for normal comparison for clinical research Examination of participant in clinical trial documented in this encounter [employer] for visit Narrative* Other (Routine) - Pending Review Specialty Diagnoses / Procedures Referred By Contac t Referred To Contact Radiology Diagnoses Examination for normal comparison for clinical research Procedures CT COMPARISON OF OUTSIDE FILMS Cayla Cox MD [address] [place] [address] Phone: tel: fax: Referral ID Status Reason Start Date Expiration Date V isits Requested Visits Authorized [id number] Pending Review 02/22/2025 02/22/2026 1 1 [facility] Knock KnockReTranscepta for visit Narrative* Other (Routine) - Open Specialty Diagnoses / Procedures Referred By Contac t Referred To Contact Radiology Diagnoses Examination for normal comparison for clinical research Procedures CT COMPARISON OF OUTSIDE FILMS Cayla Cox MD [address] [place] [address] Phone: tel: fax: Referral ID Status Reason Start Date Expiration Date Visits Re quested Visits Authorized [id number] Open 02/22/2025 02/22/2026 1 1 [employer] Summary Purpose Family History No Family History [...] and content) DATE CREATED AUTHOR 10/24/2021 [facility] DATE CREATED AUTHOR AUTHOR'S ORGANIZ ATION 12/24/2021 [facility] DATE CREATED AUTHOR AUTHOR'S ORGANIZ ATION 12/31/2024 [facility] EPIC DATE CREATED AUTHOR AUTHOR'S ORGANIZ ATION 02/21/2025 [facility] Source Comments (unrecognize d section and content) In the event this informatio n is protected by the Federal Confidentiality of Alcohol and Drug Abuse Patient Records regulations: The Federal rules restrict any use of the information to criminally investigate or prosecute any alcohol or drug abuse patient.[facility] Reason for Visit (unrecogniz ed section and content) Reason Comments External Referrals/resources Reason Comments Medicare Annual Wellness Visit Subsequen t wellness Care Teams (unrecognized sec tion and content) Team Supervisor Relationship Specialty Start Date End Date Giorgi Davis MD [address] [place] [address] Referring Cardiology 05/16/22 Team Supervisor Relationship Specialty Start Date End Date Eric Trujillo MD [address] [place] [address] PCP - General Family Medicine 12/29/24 Team Supervisor Relationship Specialty Start Date End Date Eric Trujillo MD [address] [place] [address] PCP - General Family Medicine 12/29/24 Team Supervisor Relationship Specialty Start Date End Date Eric Trujillo MD [address] [place] [address] PCP - General Family Medicine 12/29/24 Team Supervisor Relationship Specialty Start Date End Date Eric Trujillo MD [address] [place] [phone] PCP - General Family Medicine 12/29/24 Team Supervisor Relationship Specialty Start Date End Date Eric Trujillo MD [address] [place] [address] PCP - General Family Medicine 12/29/24 FOR [...] BE BASED ON THE PRIMARY CLINICAL RECORDS. [employer] [facility]. provides no warranty or guarantee of the accuracy or completeness of information in this document.
--- OUTSIDE RECORDS SUMMARY | 2025-02-23 06:53 | XMS_ITS | Encounter Summary ---
Author Organization [facility] Address [address] [place] [address] Care Team Providers Care Manager R D Name Role Phone Eric Pittman MD Primary Care Provider [phone] Encounter Details Date Type Department Care Team (Late st Contact Info) Description 02/09/2025 Orders Only [facility] V[facility] [address] [place] [address] Maria Del Carmen Zheng RN Social History Tobacco Use Types Packs/Day Years Used Date Smoking Tobacco: Never Passive Smoke Exposure: Never Smokeless Tobacco: Never Alcohol Use Standard Drinks/Week Comments Yes 12 (1 standard drink = 0.6 oz pu re alcohol) PHQ-2 Answer Date Recorded Patient Health Questionnaire-2 Score 0 06/24/2023 [place] Safety & Environment Answer Date Rec orded [...] on file documented as of this encounter Visit Diagnoses Not on filedocumented in this encounter Care Teams Manager R D Relationship Specialty Start Date End Date Eric Pittman MD [address] [place] [address] PCP - General 05/14/22 documented as of this encounter
--- OUTSIDE RECORDS SUMMARY | 2025-02-23 06:53 | XMS_ITS | Encounter Summary ---
Author Organization [facility] Address [address] [place] [address] Care Team Providers Care Panel Instrument Repairer Name Role Phone Eric Pittman MD Primary Care Provider [phone] Encounter Details Date Type Department Care Team (Late st Contact Info) Description 02/16/2025 Telephone [facility] Heart [facility] V[facility] [address] [place] [phone] Andi Sorto MA Social History Tobacco Use Types Packs/Day Years Used Date Smoking Tobacco: Never Passive Smoke Exposure: Never Smokeless Tobacco: Never Alcohol Use Standard Drinks/Week Comments Yes 12 (1 standard drink = 0.6 oz pu re alcohol) PHQ-2 Answer Date Recorded Patient Health Questionnaire-2 Score 0 06/24/2023 [place] Safety & Environment Answer Date Rec orded [...] encounter Miscellaneous Notes * Telephone Encounter - Andi Sorto MA - 02/16/2025 10:11 AM EDT Spoke with Dereck she stated that patient needs to complete an Echo. Call placed to patient to inform him of this he stated that he is going to complete this at [facility]. Will call patient back to see if this was scheduled. * Telephone Encounter - Andi Sorto MA - 02/16/2025 9:17 AM EDT Call patient to reschedule appt that he missed yesterday he stated that he didn't want to drive allthe way up here and wait an hour and half to just be seen for 5 minutes. He stated that he just completed an CT if he can be told the results over the phone. documented in this encounter Plan of Treatment Not on file documented as of this encounter Visit Diagnoses Not on filedocumented in this encounter Care Teams Panel Instrument Repairer Relationship Specialty Start Date End Date Eric Pittman MD [address] [place] [address] PCP - General 05/14/22 documented as of this encounter
--- OUTSIDE RECORDS SUMMARY | 2025-02-23 06:53 | XMS_ITS | Encounter Summary ---
Author Organization [facility] Address [address] [place] [address] Care Team Providers Care Athletic Coordinator Name Role Phone Eric Pittman MD Primary Care Provider [phone] Encounter Details Date Type Department Care Team (Late Contact Info) Description 01/07/2025 Results Follow-Up [facility] [address] [place] [phone] Eric Pittman MD [address] [place] [address] Social History Tobacco Use Types Packs/Day Years [...] Office Visit [facility] [address] [place] [phone] Eric Pittman MD [address] [place] [address] documented as of this encounter Visit Diagnoses Not on filedocumented in this encounter Additional Health Concerns Assessment Noted Time PHQ-9 Depression Total Score: 3 12/30/19 9:00 AM EDT documented as of this encounter Care Teams Athletic Coordinator Relationship Specialty Start Date End Date Eric Pittman MD [address] [place] [address] PCP - General Family Medicine 12/29/24 documented as of this encounter
--- OUTSIDE RECORDS SUMMARY | 2025-02-23 06:53 | XMS_ITS | Clinical Summary ---
Author Organization [facility] Address [address] [place] [address] Care Team Providers Care Pattern Setter Name Role Phone Unavailable Primary Care Provider Unavailabl e Encounters Date Type Department Care Team Description 02/22/2025 10:38 PM EDT - 02/22/2025 11:59 PM EDT Hospital Encounter [facility] CT Scan [address] [place] [address] Cayla Cox MD Examination for normal comparison for clinical research Discharge Disposition: Home or Self Care 02/22/2025 10:38 PM EDT - 02/22/2025 11:59 PM EDT Hospital Encounter [facility] CT Scan [address] [place] [address] Cayla Cox MD Examination for normal comparison for clinical research Discharge Disposition: Home or Self Care 02/21/2025 Abstract [facility] Cardiothoracic Surgery [address] [place] [phone] Chanel Iqbal LPN 02/21/2025 Abstract [facility] Cardiothoracic Surgery [address] [place] [phone] Chanel Iqbal LPN from Last 3 Months Social History Tobacco Use Types Packs/Day Years Used Date Smoking Tobacco: Never Assessed Sex and Gender Information Value Date Recorded Sex Assigned at Not on file Legal Sex Male 1:28 PM EDT Gender Identity Not on file Sexual Orientation Not on file Plan of Treatment Health Maintenance Due Date Last Done Comments Depression Screen 1964 Hepatitis C screen 1970 DTaP/Tdap/Td vaccine (1 - Tdap) 1971 Lipids 1992 Colonoscopy 1997 Colorectal Cancer Screen 1997 FIT/FOBT: Average risk 1997 Fecal-DNA (Cologuard): [place] ge risk 1997 Sigmoidoscopy/CT colonography 1997 Pneumococcal 50+ years Vacci ne (1 of 1 - PCV) 2002 Shingles vaccine (1 of 2) 2002 COVID-19 Vaccine (4 - 2023-2 5 season) 2024 07/24/2021, 11/15/2020, 10/25/2020 Flu vaccine (#1) 03/25/2025 Respiratory Syncytial Virus (RSV) or age 60 yrs+ (1 - 1-dose 75+ series) 2027 Hepatitis A vaccine Aged Out No longe r eligible based on patient's age to complete this topic Hepatitis B vaccine Aged Out No longe r eligible based on patient's age to complete this topic Hib vaccine Aged Out No longer eligi ble based on patient's age to complete this topic Meningococcal (ACWY) vaccine Aged Out No longer eligible based on patient's age to complete this topic Meningococcal B vaccine Aged Out No l onger eligible based on patient's age to complete this topic Polio vaccine Aged Out No longer elig ible based on patient's age to complete this topic Procedures Procedure Name Priority Date/Time Associated Diagnosis Comments CT COMPARISON OF OUTSIDE FILMS Routine 02/04/2025 4:30 AM EDT Examination for normal comparison for clinical research from Last 3 Months Results * CT COMPARISON OF OUTSIDE FILMS (02/04/2025 4:30 AM EDT) Narrative [facility] - 02/23/2025 4:30 AM EDT Radiology exam is complete. No Radiologist dictation. Please follow up with ordering provider. us Cayla Cox MD IMG CT ORDERABLES Final Result [facility] from Last 3 Months
--- OUTSIDE RECORDS SUMMARY | 2025-02-23 06:53 | XMS_ITS | Encounter Summary ---
Author Organization [facility] Address [address] [place] [address] Care Team Providers Care Gift Wrapper Name Role Phone Unavailable Primary Care Provider Unavailabl e Encounter Details Date Type Department Care Team (Late st Contact Info) Description 02/21/2025 Abstract [facility] Cardiothoracic Surgery [address] [facility] [place] [phone] Chanel Iqbal LPN Social History Tobacco Use Types Packs/Day Years [...]
--- OUTSIDE RECORDS SUMMARY | 2025-02-23 06:53 | XMS_ITS | Encounter Summary ---
Author Organization [facility] Address [address] [facility] [place] [address] Care Team Providers Care Supervisor Bit And Shank Department Name Role Phone Eric Pittman MD Primary Care Provider [phone] Eric Pittman MD Unavailable Eric Pittman MD Primary Care Provider [phone] Encounter Details Date Type Department Care Team (Late Contact Info) Description 08/13/2023 Orders Only [facility] [address] [place] [phone] Eric Pittman MD [address] [place] [phone] Social History Tobacco Use Types Packs/Day Years [...] 07/04/2025 8:00 AM EST Office Visit [facility] [address] [place] [phone] Eric Pittman MD [address] [place] [phone] documented as of this encounter Procedures Procedure Name Priority Date/Time Associated Diagnosis Comments FECAL IMMUNOCHEMICAL Routine 06/20/2023 2:51 PM EDT documented in this encounter Results * Fecal immunochemical (06/20/2023 2:51 PM EDT) Stool Rectal contents / Unknown Eric Pittman MD LAB BODY FLUIDS AND STOOLS ORDER DEQUAN Final Result documented in this encounter Visit Diagnoses Not on filedocumented in this encounter Care Teams Supervisor Bit And Shank Department Relationship Specialty Start Date End Date Eric Pittman MD PCP - General Family Medicine 08/25/22 12/28/24 Eric Pittman MD [address] [place] [address] PCP - Devoted 02/23/24 09/24/24 Eric Pittman MD [address] [place] [address] PCP - General Family Medicine 12/29/24 documented as of this encounter
--- OUTSIDE RECORDS SUMMARY | 2025-02-23 06:53 | XMS_ITS | Clinical Summary ---
Author Organization [facility] Address [address] [facility] [place] [address] Care Team Providers Care Morning Nanny Name Role Phone Eric Pittman MD Primary Care Provider [phone] Allergies No known active allergies Medications atorvastatin [...] Encounters Date Type Department Care Team Description 02/04/2025 Clinisync Result Encounter [facility] Unsolicited Provider, Generic External Data 01/27/2025 Telephone [facility] [address] [place] [phone] Eric Pittman MD 01/07/2025 Results Follow-Up [facility] [address] [place] [address] Eric Pittman MD 01/07/2025 Clinisync Result Encounter [facility] External Department Unsolicited Eric Pittman MD 12/29/2024 9:15 AM EDT Office Visit [facility] [address] [place] [address] Eric Pittman MD Medicare annual wellness visit, subsequent (Primary Dx); Prediabetes; Essential hypertension ; Dyslipidemia ; CKD stage 3a, GFR 45-59 ml/min ([facility]); Class 1 obesity due to excess calories with serious comorbidity and body mass index (BMI) of 31.0 to 31.9 in adult; Encounter for long-term current use of medication; Chronic HFrEF (heart failure with reduced ejection fraction) ([facility]); Paroxysmal atrial fibrillation (HCC) 12/29/2024 Bamboo flowsheet [facility] [address] [place] [address] Eric Pittman MD from Last 3 Months [...] Visit [facility] [address] [place] [address] Eric Pittman MD [address] [place] [address] Health Maintenance Due Date Last Done Comments CT Colonography 1950 Colonoscopy 1950 FIT-DNA 1950 FOBT 1950 Sigmoidoscopy 1950 Pneumococcal Vaccine: 65+ Ye ars (1 of 2 - PCV) 1971 FIT 06/20/2024 06/20/2023 Influenza Vaccine (#1) 2025 Colorectal Cancer Screening 12/29/2025 Postponed from 1950 (Patient Refused) Medicare Annual Wellness (AWV) 12/29/2025 12/29/2024 Procedures Procedure Name Priority Date/Time Associated Diagnosis Comments CT ANGIOGRAM CHEST 02/04/2025 9: 38 AM EDT ALL THYROID STIM HORMONE Routine 01/07/2025 1:00 [...] Recently Relevant to Health Maintenance Results * CT angiogram chest (02/04/2025 9:38 AM EDT) Anatomical Region Laterality Modality Body, Chest Computed Tomogra phy 02/04/2025 9:38 AM EDT Narrative 02/04/2025 9:41 AM EDT [facility] [place] [id number] CT Scan Report Signed Patient: ALEXIS BAEZ MR#: [id number] : 1950 Acct:[id number] Age/Sex: 74 / M ADM Date: 02/04/25 Loc: CT Attending Dr: Krysta Thomas M.D. Ordering Physician: Krysta Thomas M.D. Date of Service: 02/04/25 Procedure(s): CT angio chest Accession Number(s): [id number] cc: Eric Pittman M.D. [facility] [place] [address] Patient Name: ALEXIS BAEZ MRN: [id number] date: 1950 Sex: M Assigned Patient Location: CT Current Patient Location: CT Accession/Order Number: [id number] Exam Date: 02/04/2025 09:21 Report Date: 02/04/2025 09:38 At the request of: KRYTSA THOMAS MD Procedure: CT angio chest CTA CHEST [...] Lepe M.D. 02/04/2025 9:38 AM Dictation Location: [place] [address] Electronically authenticated by: [id number] Y Date: 02/04/2025 09:38 Dictated By: Tori Lepe M.D. Signed By: 02/04/25940 DD/ 7 TD/TT: Outsole Flexer: Procedure Note Radiology, Radiologist, MD - 02/04/2025 [place] [address] CT Scan Report Signed Patient: ALEXIS BAEZ R#: [id number] : 1950cct:[id number] Age/Sex: 74 / MADM Date: 02/04/25 Loc: CT Attending Dr: Krysta Thomas M.D. Ordering Physician: Krysta Thomas M.D. Date of Service: 02/04/25 Procedure(s): CT angio chest Accession Number(s): [id number] cc: Eric Pittman M.D. [facility] [place] [address] Patient Name: ALEXIS BAEZ MRN: [id number] date: 1950 Sex: M Assigned Patient Location: CT Current Patient Location: CT Accession/Order Number: [id number] Exam Date: 02/04/2025 09:21 Report Date: 02/04/2025 09:38 At the request of: KRYSTA THOMAS MD Procedure: CT angio chest CTA CHEST WITH CONTRAST CLINICAL HISTORY: Ascending Aorta Dilation follow-up COMPARISON: 07/09/2023 TECHNIQUE: Spiral images were obtained through the chest following intravenous administration of 100 mL of Omnipaque 350. Images werereviewed using both narrow and wide window settings. Sagittal, coronal and 3 D volume-rendered reconstructions were performed and reviewed. This CT examwas performed using one or more following dose reduction techniques: Automated exposure control, adjustment of the mA and/or kV according to patientsize, or use of iterative reconstruction technique. FINDINGS: There is a left-sided pacemaker. The heart is borderlineenlarged. Minor coronary disease is visualized. There is no pericardial effusion. Similar aneurysmal dilatation of the ascending aorta is noted withdiameter of 5 cm. No dissection is seen. There is adequate opacification of the pulmonary arteries. No emboli are identified. No pathologiclymphadenopathy is seen. A heterogeneously hypodense left thyroid nodule is againvisualized. There are degenerative changes at the spine and suspected DISH. Calcified pleural plaque is present, predominantly over thehemidiaphragms. Fibrocalcific scarring is present at the left apex, similar to the prior. Linear scarring and/or atelectasis is present at the lower lobes alongwith a more rounded area at the right posterior costophrenic angle which is unchanged. There is no developing consolidation, effusion or discretesoft tissue nodules. No pneumothorax is seen. Limited cuts through the upper abdomen show cholelithiasis. CT/CT angio chest IMPRESSION: STABLE 5 CM ASCENDING AORTIC ANEURYSM, WITHOUT DISSECTION. NO PULMONARY EMBOLI. BORDERLINE CARDIOMEGALY. CALCIFIED PLEURAL PLAQUE ALONG WITH SCARRING AND/OR ATELECTASIS. SIMILAR THYROID NODULARITY. CHOLELITHIASIS. Impression dictated by: Tori Lepe M.D. 02/04/2025 9:38 AM Dictation Location: [place] [address] Electronically authenticated by: [id number] Y Date: 509:38 Dictated By: Tori Lepe M.D. Signed By:02/04/25 0941 DD/ 0938 TD/TT: Outsole Flexer: us Generic External Data Provider IMG CT PROCEDURES Final Result * MLR HEMOGLOBIN A1C (01/07/2025 1:00 PM EDT) GLYCOHEMOGLOBIN A1C 5.8 4.5 - 6.2 % [facility] Comment: ADA RECOMMENDED LIMIT 4.0 - 6.0 ADA THERAPEUTIC TARGET < 7.0 ACTION SUGGESTED > 7.0 ESTIMATED AVERAGE GLUCOSE 120 mg/dL TB 01/07/2025 1:00 PM EDT 01/07/2025 1:07 PM EDT Narrative [facility] - 01/07/2025 1:22 PM EDT us Eric Naderer MD [facility] Final Result Performing Organization Address [facility]/ZIP Co de Phone Number [facility] * (ABNORMAL) [facility] LIVER PANEL (01/07/2025 1:00 PM EDT) BILIRUBIN TOTAL 0.8 0.2 - 1.0 mg/dL TB BILIRUBIN DIRECT 0.2 0.0 - 0.2 mg/dL TBH ASPARTATE AMINO TRANSFERASE 16 15 - 37 U/L TBH ALANINE AMINOTRANSFERASE 17 16 - 63 U/L TBH ALKALINE PHOSPHATASE 119(H) 46 - 116 U/L TB TOTAL PROTEIN 7.6 6.4 - 8.2 g/dL TBH ALBUMIN LEVEL 3.4 3.4 - 5.0 g/dL TBH GLOBULIN 4.2 g/dL TBH ALBUMIN GLOBULIN RATIO 0.8 TBH 01/07/2025 1:00 PM EDT 01/07/2025 1:07 PM EDT Narrative [facility] - 01/07/2025 2:29 PM EDT us Eric NEIL Final Result Performing Organization Address [facility] Co de Phone Number [facility] * ALL THYROID STIM HORMONE (01/07/2025 1:00 PM EDT) THYROID STIMULATING HORMONE 0.537 0.358 - 3.740 uIU/mL TBH 01/07/2025 1:00 PM EDT 01/07/2025 1:07 PM EDT Narrative [facility] - 01/07/2025 2:29 PM EDT Eric NEIL Final Result [facility] * ALL LIPID PROFILE (FASTING) (01/07/2025 1:00 PM EDT) TRIGLYCERIDES 44 <=150 mg/dL TBH CHOLESTEROL 119 <=200 mg/dL TBH HDL CHOLESTEROL 54 40 - 60 mg/dL TB Comment: > or =60 mg/dl - LOW CARDIOVASCULAR RISK <40 mg/dl - HIGH CARDIOVASCULAR RISK LDL CHOLESTEROL CALCULATED 56.2 mg/dL [facility] Comment: <100 mg/dl OPTIMAL 100-129 mg/dl NEAR OR ABOVE OPTIMAL 130-159 mg/dl BORDERLINE HIGH 160-189 mg/dl HIGH >190 mg/dl VERY HIGH VLDL CHOLESTEROL 8.8 mg/dL TB CHOL HDL RATIO 2.2 [facility] Comment: 3.3 - 4.4 LOW RISK 4.4 - 7.1 AVERAGE RISK 7.1 - 11.0 MODERATE RISK >11.0 HIGH RISK 01/07/2025 1:00 PM EDT 01/07/2025 1:07 PM EDT Narrative [facility] - 01/07/2025 2:29 PM EDT Eric Pittman MD [facility] Final Result [facility] * (ABNORMAL) ALL CBC WITH AUTO DIFF (01/07/2025 1:00 PM EDT) TB WBC 6.9 4.0 - 11.0 10 3/uL TBH TBH RBC 4.99 4.70 - 6.10 10 6/uL TBH TB HGB 15.6 14.0 - 18.0 g/dL TB TB HCT 46.3 42.0 - 54.0 % TB TB MCV 92.8 80.0 - 94.0 fL TB TB MCH 31.3 25.9 - 34.0 pg TBH TB MCHC 33.7 29.9 - 35.2 g/dL TB TB RDW 13.6 11.0 - 15.0 % TB TBH PLT 190 150 - 450 10 3/uL TBH TB MPV 10.2 9.5 - 13.5 fL TBH [...] EDT Eric Pittman MD CLINISYJOSIE Final Result [facility] * (ABNORMAL) ALL BASIC METABOLIC PANEL (01/07/2025 1:00 PM EDT) Pathologist [facility] SODIUM 138 136 - 145 mmol/L TBH POTASSIUM 4.1 3.5 - 5.1 mmol/L TBH CHLORIDE 105 98 - 107 mmol/L TBH CARBON DIOXIDE 29.8 21.0 - 32.0 mmol/L TBH ANION GAP 7.3 TBH GLUCOSE 109(H) 74 - 106 mg/dL TBH BLOOD UREA NITROGEN 16.0 7.0 - 18.0 mg/dL TBH CREATININE 1.30 0.70 - 1.30 mg/dL TBH TBH EGFR-AF TONGAN >60 >=60 mL/min/1.7 3m 2 TBH TBH EGFR-NON AF TONGAN 54(L) >=60 mL/min/1.7 3m 2 TBH BUN CREATININE RATIO 12.3 TBH CALCIUM 8.9 8.5 - 10.1 mg/dL TBH 01/07/2025 1:00 PM EDT 01/07/2025 1:07 PM EDT Narrative [facility] - 01/07/2025 2:29 PM EDT Eric Pittman MD CLINIS[facility] Final Result [facility] TBH * Fecal immunochemical (06/20/2023 2:51 PM EDT) Stool Rectal contents / Unknown Eric Pittman MD LAB BODY FLUIDS AND STOOLS ORDER DEQUAN Final Result from Last 3 Months or Most Recently Relevant to Health Maintenance Insurance [facility] MEDICARE ADVANTAGE Care Teams Morning Nanny Relationship Specialty Start Date End Date Eric Pittman MD [address] [place] [phone] PCP - General Family Medicine 12/29/24
--- OUTSIDE RECORDS SUMMARY | 2025-02-23 06:53 | XMS_ITS | Encounter Summary ---
Author Organization [facility] Address [address] [place] [address] Care Team Providers Care Home Teaching Grades 7 And 8 Teacher Name Role Phone Eric Pittman MD Primary Care Provider [phone] Reason for Referral * Consultation (Routine) - Pending Review Specialty Diagnoses / Procedures Referred By Az alexander Referred To Contact Cardiothoracic Surgery Diagnoses Ascending aorta dilatation Procedures [place] [facility] 60 MINUTES Ligia Grayson CNP [address] [place] [address] Phone: tel: fax: Referral ID Status Reason Start Date Expiration Date Visits Requested Visits Authorized [id number] Pending Review Specialty Services Required 02/16/2025 02/16/2026 1 1 Encounter Details Date Type Department Care Team (Late st Contact Info) Description 02/16/2025 Orders Only [facility] [address] [place] [address] Roseanne Brooks MA Ascending aorta dilatation (Primary Dx) Social History Tobacco Use Types Packs/Day Years [...] as of this encounter Plan of Treatment Scheduled Referrals Name Type Priority Associated Diagnoses Order Schedule Ambulatory referral to Cardiothoracic Surgery Outpatient Referral Routine Ascending aorta dilatation Expected: 02/16/2025 (Approximate), Expires: 08/18/2025 documented as of this encounter Visit Diagnoses Diagnosis Ascending aorta dilatation- Primary Thoracic aneurysm without mention of rupture documented in this encounter Care Teams Home Teaching Grades 7 And 8 Teacher Relationship Specialty Start Date End Date Eric Pittman MD [address] [place] [address] PCP - General 05/14/22 documented as of this encounter
--- OUTSIDE RECORDS SUMMARY | 2025-02-23 06:53 | XMS_ITS | Encounter Summary ---
Author Organization [facility] Address [address] [place] [address] Care Team Providers Care Mathematics Instructor Name Role Phone Unavailable Primary Care Provider Unavailabl e Encounter Details Date Type Department Care Team (Late st Contact Info) Description 02/21/2025 Abstract [facility] Cardiothoracic Surgery [address] [facility] [place] [phone] Chanel Iqbal LPN Social History Tobacco [...]
--- NOTE | 2025-02-23 07:21 | CA_ITS ---
ECHOCARDIOGRAM REPORT PROCEDURE: CA ECHO DOPPLER COMPLETE INDICATIONS: Ascending aortic aneurysm, Chronic systolic heart failure COMPARISON: None. DESCRIPTION: COMPLETE ECHOCARDIOGRAM Real-time transthoracic echocardiography with 2D, M-mode, spectral and color flow Doppler performed. QUALITY: Technical quality was good. LEFT VENTRICLE: Normal chamber size. Mild concentric left ventricular hypertrophy. Global left ventricular systolic function is normal without wall motion abnormalities. Calculated left ventricular ejection fraction is 59%. There were a 65% LV EF: DIASTOLIC: Normal diastolic function ATRIAL SEPTUM: Usually appears intact LEFT ATRIUM: Normal chamber size. RIGHT ATRIUM: Mild dilatation. RIGHT VENTRICLE: Normal chamber size. Normal right ventricular systolic function. Pacer wire present in the right atrium and right ventricle. TRICUSPID VALVE: Normal mobility and thickness. No stenosis with mild regurgitation. No evidence of pulmonary hypertension.RVSP 25mmHg MITRAL VALVE: Normal mobility and thickness. No evidence of mitral valve stenosis. There is no mitral annular calcification. Trivial mitral regurgitation. AORTIC VALVE: Normal trileaflet appearance. No visible sclerosis. Normal leaflet mobility. No evidence of aortic valve stenosis. Mild aortic regurgitation. AORTIC ROOT: Moderately dilated measuring 4.4cm. The ascending aorta is significantly dilated measuring 4.8 x 5.0 x 5.3cm. Aortic arch is moderately dilated measuring 4.4 cm PULMONIC VALVE: Normal thickness and mobility. No stenosis. Trivial regurgitation. PERICARDIUM: No evidence of pericardial effusion. IVC: Collapes with inspirations. Normal size. PLEURA: CONCLUSION: Mild concentric left ventricle hypertrophy Normal left ventricle systolic function without wall motion abnormalities, ejection fraction visually 65% Normal left ventricle diastolic function Normal right ventricle size and systolic function Normal right-sided pressures, RVSP 25 mmHg Trivial mitral regurgitation Mild aortic insufficiency Mild tricuspid regurgitation Moderately dilated aortic root measuring 4.4 cm Significantly dilated ascending aorta measuring 5 x 5.3 cm Moderately dilated aortic arch measuring 4.4 cm Adult Echocardiography Procedure Report Left Ventricle LVEDD (3.7 - 5.6 cm): 4.70 cm LVESD (2.2 - 4.0 cm): 3.46 cm LVIVS thickness (0.6 - 1.2 cm): 1.40 cm LVPW thickness (0.5 - 1.0 cm): 1.30 cm e': 0.09 m/s E - e': 4.17 LVOT Max Gradient: 2.38 mm[Hg] LVOT Area (cm2): 0.77 m/s Peak Velocity (LVOT): 0.77 m/s Mean Velocity (LVOT): 0.48 m/s LVOT Diameter 2.00 cm Left Ventricular Ejection Fraction: 58.60 % Left Atrium LA Volume Index (2D A2C): 32.93 ml/m2 Left Atrium Systolic Dimension: 3.85 cm Mitral Valve MV E to A Ratio: 0.68 MV Max Gradient: MV Mean Gradient: Mitral Valve A-Wave Peak Velocity: 0.54 m/s Mitral Valve E-Wave Peak Velocity: 0.37 m/s Cardiovascular Orifice Area: Right Ventricle RV Internal Diastolic Dimension: 3.53 cm Aorta AO Root Diam: 4.38 cm Ascending Ao Diam: 4.76 cm Aortic Valve AoV Area (Peak Fernando): 2.59 cm2, 2.59 cm2 AoV Area (VTI): 2.38 cm2, 2.38 cm2 Deceleration [place]: 1.77 m/s2 Pressure Half-Time: 642.71 ms Peak Velocity(Antegrade Flow): 0.94 m/s Peak Gradient(Antegrade Flow): 3.52 mm[Hg] Mean Velocity(Antegrade Flow): 0.63 m/s Mean Gradient(Antegrade Flow): 1.93 mm[Hg] Velocity Time Integral: 22.83 cm Tricuspid Valve Peak Velocity (Regurgitant Flow): 2.21 m/s, 2.39 m/s, 2.12 m/s, 2.36 m/s Peak Velocity: Pulmonic Valve Mean Gradient: Mean Velocity: Peak Velocity: 0.89 m/s Peak Gradient: 2.70 mm[Hg], 3.75 mm[Hg] Right Atrium Right Atrium Systolic Pressure: 39.07 ml, 39.07 ml Dictated by: Librado Mazariegos MD on 02/23/2025 at 17:52 Approved by: Librado Mazariegos MD on 02/23/2025 at 18:02 Continued Report - Page [facility] [place] [id number]
== END 2025-02-23 06:51 | disposition home or self-care (01) ==
LOC: CARD 06:51
PROVIDERS: PCP Family Medicine; Visit Provider Nurse Practitioner Family
DX: I71.21 Aneurysm of the ascending aorta, without rupture (principal); I50.22 Chronic systolic (congestive) heart failure; I08.3 Combined rheumatic disorders of mitral, aortic and tricuspid valves
CPT/HCPCS: 93306

== ENCOUNTER 2025-02-23 07:01 | Outpatient (OUT) | payer MEDICARE, SELFPAY ==
--- NOTE | 2025-02-23 | US_ITS ---
The [address] [address] Patient Name: ALEXIS CLARK MRN: [id number] date: 1950 Sex: M Assigned Patient Location: [place] Current Patient Location: [place] Accession/Order Number: [id number] Exam Date: 02/23/2025 10:35 Report Date: 02/23/2025 10:51 At the request of: KADE TRUJILLO MD Procedure: US thyroid THYROID ULTRASOUND COMPARISON: CT chest 02/04/2025 and 04/06/2021 CLINICAL DATA: Follow-up left thyroid nodule on CT The thyroid lobes are mildly prominent. The right thyroid lobe measures 5.4 x 2.1 x 2.1 cm. The left lobe measures 5.3 x 2.8 x 2.5 cm. The isthmus measures 5 mm. There is diffusely heterogeneous echogenicity. There is a nodule at the superior pole on the right with isoechoic center and hypoechoic periphery measuring 11 x 11 x 11 mm (TI-RADS 3). At the midpole on the right there is a hypoechoic nodule laterally measuring 8 x 6 x 7 mm (TI-RADS 4). At the inferior pole on the right, there is a heterogeneous, nearly isoechoic nodule with peripheral hyperechoic foci measuring 18 x 16 x 14 mm (TI-RADS 4). On the left, there is a dominant mixed echogenicity nodule with hyperechoic and multiple cystic components. There might be calcification at the periphery (TI-RADS 3). The nodule measures 2.2 x 1.7 x 2.6 cm. This was also seen on the CT from 2020 and also has not changed significantly. US/US thyroid IMPRESSION: BILATERAL THYROID NODULARITY, DESCRIBED. ULTRASOUND-GUIDED BIOPSY COULD BE CONSIDERED OF THE INFERIOR POLE NODULE ON THE RIGHT BASED ON MODERATELY SUSPICIOUS TI-RADS CATEGORY. MILDLY SUSPICIOUS DOMINANT NODULE ON THE LEFT. BIOPSY COULD BE CONSIDERED BASED ON SIZE, HOWEVER THIS HAS NOT CHANGED SIGNIFICANTLY SINCE 2020. IF THERE IS NO INTERVENTION, THEN ULTRASOUND FOLLOW-UP IN ONE YEAR IS SUGGESTED. Impression dictated by: Tori Lepe M.D. 02/23/2025 10:51 AM Dictation Location: [place] [address] Electronically authenticated by: [id number] Y Date: 02/23/2025 10:51
--- OUTSIDE RECORDS SUMMARY | 2025-02-23 07:04 | XMS_ITS | CCD ---
Author Organization [facility] Care Team Providers Care Supplies Packer Name Role Phone GIORGI DAVIS Attending Unavailable [...] Unavailable Eric Trujillo MD Primary Care Provider [phone] ERIC TRUJILLO Attending Unavailable ROBERTO ELIZABETH Attending [...] Onset: 07-26-2021 Episodic Other aftercare (1 source) salvage determiner (current) use of anticoagulants; Translations: [RN HOME CARE CURRNT USE ANTICOAGULANTS] Onset: 12-24-2021 Episodic Other aftercare (7 sources) Long-term current use of drug therapy; Translations: [Other salvage determiner (current) drug therapy] Onset: 12-29-2024 12-29-2024 Episodic [...] he is going to complete this at [facility]. Will call patient back to see if this was scheduled. [facility] 36 Call patient to reschedule appt that he missed yesterday he stated that he didn't want to drive all the way up here and wait an hour and half to just be seen for 5 minutes. He stated that he just completed an CT if he can be told the results over the phone. [facility] Orders Onlyon 02-16-2025 Orders Only [id number] Alexis Baez 1950 M Date Provider Department Center 02/16/2025 Yesica5-HUMBERTO HORTON [facility] Hos Family History Problem Relation Age of Onset Hypertension Father Heart failure Father Prostate cancer Father Hypertension Sister Family Status - Relation Status Age at Mother Father Sister [facility] Orders Onlyon 02-09-2025 Orders Only [id number] Alexis Baez 1950 M Date Provider Department Center 02/09/2025 2020-MENDEZ SALVADOR HVCTS [facility] Family History Problem Relation Age of Onset Hypertension Father Heart failure Father Prostate cancer Father Hypertension Sister Family Status - Relation Status Age at Mother Father Sister [facility] CTA Chest vessels WO and W c ontrast Will 02-04-2025 [place] [address] CT Scan Report Signed Patient: ALEXIS BAEZ MR#: [id number] : 1950 Acct:[id number] Age/Sex: 74 / M ADM Date: 02/04/25 Loc: CT Attending Dr: Krysta Marquez M.D. Ordering Physician: Krysta Marquez M.D. Date of Service: 02/04/25 Procedure(s): CT angio chest Accession Number(s): [id number] cc: Eric Trujillo M.D. [place] [id number] Patient Name: ALEXIS BAEZ MRN: [id number] date: 1950 Sex: M Assigned Patient Location: CT Current Patient Location: CT Accession/Order Number: [id number] Exam Date: 02/04/2025 09:21 Report Date: 02/04/2025 [...] Lepe M.D. 02/04/2025 9:38 AM Dictation Location: [place] [address] Electronically authenticated by: [id number] Y Date: 02/04/2025 09:38 Dictated By: Tori Lepe M.D. Signed By: 02/04/2541 DD/ 7 TD/TT: Inside Plant Supervisor: [facility] Radiology, Radiologist, MD - 02/04/2025 [place] [address] CT Scan Report Signed Patient: ALEXIS BAEZ MR#: [id number] : 1950 Acct:[id number] Age/Sex: 74 / M ADM Date: 02/04/25 Loc: CT Attending Dr: Krysta Marquez M.D. Ordering Physician: Krysta Marquez M.D. Date of Service: 02/04/25 Procedure(s): CT angio chest Accession Number(s): [id number] cc: Eric Trujillo M.D. The [address] [address] Patient Name: ALEXIS BAEZ MRN: [facility]:[id number] date: 1950 Sex: M Assigned Patient Location: CT Current Patient Location: CT Accession/Order Number: [id number] Exam Date: 02/04/2025 09:21 Report Date: 02/04/2025 [...] Lepe M.D. 02/04/2025 9:38 AM Dictation Location: [place] [address] Electronically authenticated by: [id number] Y Date: 02/04/2025 09:38 Dictated By: Tori Lepe M.D. Signed By: 02/04/25 0941 DD/ TD/TT: Inside Plant Supervisor: [facility] [employer] Radiology Study observation (narrative) [facility] CTA Chest vessels WO and W c ontrast IVOrdered By: Radiologist Radiology on 02-04-2025 [facility] [employer] Work Phone: Office Visiton 01-27-2025 Follow-up visit [id number] Alexis Baez 1950 Date Provider Department Center 01/27/2025 ROBERTO STOCKTON Family History Problem Relation Age of Onset Hypertension Father Heart failure Father Prostate cancer Father Hypertension Sister Family Status - Relation Status Age at Mother Father Sister Level of Service:44492 CO OFFICE/OUTPATIENT ESTABLISHED MOD MDM 30 MIN Reason for Visit and Comments: Hypertension [605150] Congestive Heart Failure [127] Aortic Aneurysm [452] Normal [facility] Orders Onlyon 01-27-2025 Orders Only [id number] Alexis Baez 1950 Date Provider Department Center 01/27/2025 HUMBERTO BARRON Family History Problem Relation Age of Onset Hypertension Father Heart failure Father Prostate cancer Father Hypertension Sister Family Status - Relation Status Age at Mother Father Sister Normal [facility] MLR HEMOGLOBIN A1Con 025 Glucose [Mass/Vol] 120 mg/dL [facility] HbA1c (Bld) [Mass fraction] 5.8 % 4.5 - 6.2 % [facility] Comment on above: ADA RECOMMENDED LIMI T 4.0 - 6.0 ADA THERAPEUTIC TARGET < 7.0 ACTION SUGGESTED > 7.0 [facility] ECHOCARDIO M/2D COMPLETEon 0 10-03-2021 ECHOCARDIO M/2D COMPLETE Patient: ALEXIS BAEZ Exam Date: 10/03/2021 : 1950 Gender:M Ordering : DR JOHN WALKER M.D. Admission #: [id number] Family : DR ERIC TRUJILLO . Order #: [id number] CLICK HERE TO VIEW EXAM ECHOCARDIOGRAM REPORT [...] aortic regurgitation. AORTIC ROOT: Aortic sinuses are sajd-tg-lrmzakkybu enlarged. The ascending aorta is severely enlarged [...] M.D. on 10/04/2021 at 10:[address] [facility] Cardiovascular Lab Reporton 09-20-2021 Cardiovascular Lab Report [facility] Patient Name: Nestor [facility] MR #: [id number] Physician: Giorgi Davis MD Department of Service Date: 09/20/2021 Medicine Birthdate: 1950 Division of Room #: Cardiology Adult Cardiovascular Services [place] [address] Cardiovascular Laboratory Report ATRIAL FIBRILLATION ABLATION PROCEDURE [...] perform PVI. Esophagus was mapped using the Poly[employer]edy[employer] 3D mapping software and noted to be [...] Glucose [Mass/Vol] 97 mg/dL Normal 70-100 [facility] Comment on above: Performed By: #### 8 [id number] #### [facility] [address] [facility]. [address] PROTHROMBIN TIMEon 2 INR Coag (PPP) [...] 1995;108:231S-246S. Performed By: #### 5 6101 #### [facility] [address] [facility]. [address] PT Coag (PPP) [Time] 16.1 s High 12.3-14.8 [facility] Comment on above: Result Comment: ALL RESULTS MUST BE INTERPRETED WITH RESPECT TO BLOOD DRAWING ARTIFACT OR DILUTION ERROR OF ANTICOAGULANT AT THE TIME OF SAMPLING. Performed By: #### 5 6101 #### [facility] [address] [facility]. [address] BASIC METABOLIC PANELon 05-25 Calcium [Mass/Vol] 8.8 mg/dL Normal 8.6-10.3 [facility] Comment on above: Performed By: #### 0 0071 #### [facility] [address] [facility] [place] [address], [facility] Chloride [Moles/Vol] 105 mmol/L Normal 98-107 [facility] Comment on above: Performed By: #### 0 0071 #### [facility] [address] [facility] [place] [address], [facility] CO2 [Moles/Vol] 24 mmol/L Normal 21-31 [facility] Comment on above: Performed By: #### 0 0071 #### [facility] [address] [place] [address], [facility] Creatinine [Mass/Vol] 1.31 mg/dL High 0.70-1.30 The [facility] Comment on above: Performed By: #### 0 0071 #### [facility] [address] [place] [address], [facility] eGFR- non- 54 ml/min/1.73sq m Abnormal >60 The [facility] Comment on above: Performed By: #### 0 0071 #### [facility] [address] [facility] [place] [address], [facility] GFR/1.73 sq M.predicted among blacks MDRD (S/P/Bld) [Vol rate/Area] mL/min/{1.73_m2} Normal >60 The [facility] Comment on above: Performed By: #### 0 0071 #### [facility] [address] [facility] [place] [address], [facility] Glucose [Mass/Vol] 104 mg/dL High 70-[address] [facility] Comment on above: Performed By: #### 0 0071 #### [facility] [address] [facility] [place] [address], [facility] Potassium [Moles/Vol] 5.3 mmol/L High 3.5-5.1 [facility] Comment on above: Performed By: #### 0 0071 #### [facility] [address] [facility] [place] [id number], [facility] Sodium [Moles/Vol] 137 mmol/L Normal 136-[address] [facility] Comment on above: Performed By: #### 0 0071 #### [facility] [address] [place] [address], [facility] Urea nitrogen [Mass/Vol] 24 mg/dL Normal 7-25 The [facility] Comment on above: Performed By: #### 0 0071 #### [facility] [address] [facility]. [address] CBC COMPLETE BLOOD COUNTon Erythrocyte distribution width (RBC) [Ratio] 13.9 % Normal 11.5-15.0 [facility] Comment on above: Performed By: #### 5 0608 #### [facility] [address] [facility] [address] Hematocrit (Bld) [Volume fraction] 50.2 % High 39.0-50.0 [facility] Comment on above: Performed By: #### 5 0608 #### [facility] [address] [facility]. [address] Hemoglobin (Bld) [Mass/Vol] 17.0 g/dL Normal 13.0-17.0 [facility] Comment on above: Performed By: #### 5 0608 #### [facility] [address] [facility]. [address] MCH (RBC) [Entitic mass] 31.3 pg Normal 27.0-33.0 [facility] Comment on above: Performed By: #### 5 0608 #### [facility] [address] [facility]. [address] MCHC (RBC) [Mass/Vol] 33.9 g/dL Normal 32.0-35.0 [facility] Comment on above: Performed By: #### 5 0608 #### [facility] [address] [facility]. [address] MCV (RBC) [Entitic vol] 92.3 fL Normal 82.0-98.0 [facility] Comment on above: Performed By: #### 5 0608 #### [facility] [address] [facility]. [address] Nucleated RBC/100 WBC (Bld) [Ratio] 0 % Normal 0-0 [facility] Comment on above: Performed By: #### 5 0608 #### [facility] [address] [facility]. [address] PLAT CNT 181 10*3/uL Normal 150-400 The [facility] Comment on above: Performed By: #### 5 0608 #### [facility] [address] [facility] [place] [address], [facility] RBC (Bld) [#/Vol] 5.44 10*6/uL Normal 4.20-5.70 The [facility] Comment on above: Performed By: #### 5 0608 #### [facility] [address] [facility] [place] [address], [facility] WBC (Bld) [#/Vol] 7.66 10*3/uL Normal 4.00-10.60 The [facility] Comment on above: Performed By: #### 5 0608 #### [facility] [address] Cardiovascular Lab Reporton 06-11-2021 Cardiovascular Lab Report [facility] Patient Name: Nestor [facility] MR #: [id number] Physician: Giorgi Davis MD Department of Service Date: 06/11/2021 Medicine Birthdate: 1950 Division of Room #: Cardiology Adult Cardiovascular Services [place] [address] Cardiovascular Laboratory Report DIRECT CARDIOVERSION PROCEDURE NOTE [...] MD Cardiac Electrophysiology Electronically Signed by: Giorgi Dvais MD 06/12/2021 09:10 A Giorgi Davis MD Date Dict: 06/11/2021/12:09 P/Giorgi Davis MD Date Trans: 06/11/2021 12:24 P/mmo [id number] cc: Eric Trujillo M.D. [address] [facility] [address] Normal The [facility] POC SARS COV2 ANTIGEN [...] signs and symptoms consistent with COVID-19. The [employer] COVID-19 Ag Card is a lateral flow [...] Accreditation. Performed By: #### 3 1977 #### [address] [place] [address], [facility] FREE T4on 04-20-2021 Free T4 [Mass/Vol] 1.05 ng/dL Normal 0.78-2.19 The [facility] Comment on above: Performed By: #### F T4 #### [facility] [address] [place], [place] [address] Marline Valle TSHon 04-20-2021 TSH 0.118 uIU/mL Critically low 0.470-4.680 [facility] Comment on above: Performed By: #### T SH #### [facility] [address] [place] [address] [facility] TSH RANGE SEE BELOW Normal [facility] Comment on above: Result Comment: <0.3 4 UIU/ml HYPERTHYROID 0.34-5.60 UIU/ml EUTHYROID >5.60 UIU/ml HYPOTHYROID Performed By: #### T SH #### [facility] [address] [place] [address] Marline Valle CTA CHEST WO W CONon [...] by: JOSHUA BARBOZA Date: 2021-04-09 07:53 Normal [facility] CREATININEon 04-06-2021 Creatinine [Mass/Vol] 1.39 mg/dL Critically high 0.66-1.25 [facility] Comment on above: Performed By: #### C AGNES #### [facility] [address] [place] [address] Marline Valle EGFR-AF BERMUDIAN >60 Normal >=60 [facility] Comment on above: Performed By: #### C AGNES #### [facility] [address] [place] [address] Marline Valle EGFR-NON AF BERMUDIAN 51 mL/min/1.73m2 Critically low >=60 [facility] Comment on above: Performed By: #### C AGNES #### [facility] [address] [place] [address] Marline Valle ECHOCARDIO M/2D COMPLETEon 0 03-21-2021 ECHOCARDIO M/2D COMPLETE Patient: ALEXIS BAEZ Exam Date: 03/21/2021 : 1950 Gender:M Ordering : ROBERTO ELIZABETH Admission #: [id number] Family : DR ERIC TRUJILLO . Order #: [id number] CLICK HERE TO VIEW EXAM ECHOCARDIOGRAM REPORT [...] Walker M.D. on 03/22/2021 at 11:39 Normal [facility] Vital Signs Date Time Vital Sign Value Performing Clinician Dorian torres 12-29-2024 09:31-0400 Body height 179.1 cm Eric Trujillo MD Work Phone: [facility] 12-29-2024 09:31-0400 Body mass index (BMI) [Ratio] 31.1 kg/m2 Eric Trujillo MD Work Phone: [facility] 12-29-2024 09:31-0400 Body temperature 97.5 [degF] Eric Trujillo MD Work Phone: [facility] 12-29-2024 09:31-0400 Body weight 99.79 kg Eric Trujillo MD Work Phone: [facility] 12-29-2024 09:31-0400 Diastolic blood pressure 78 mm[Hg] Eric Trujillo MD Work Phone: [facility] 12-29-2024 09:31-0400 Heart rate 76 /min Eric Trujillo MD Work Phone: [facility] 12-29-2024 09:31-0400 Respiratory rate 20 /min Eric Trujillo MD Work Phone: [facility] 12-29-2024 09:31-0400 SaO2% (BldA) [Mass fraction] 96 % Eric Trujillo MD Work Phone: [facility] 12-29-2024 09:31-0400 Systolic blood pressure 132 mm[Hg] Eric Trujillo MD Work Phone: [facility] Healthcare Encounters Encounter Date Encounter Type Care Provider Facility Start: 02-22-2025 End: 02-22-2025 Patient encounter procedure Cayla Cox MD Work Phone: [facility] Work Phone: Start: 02-22-2025 End: 02-22-2025 Subsequent hospital visit by physician Cayla Cox MD Work Phone: [facility] CT Scan Comment on above: Examination for norm al comparison for clinical research Start: 02-09-2025 End: 02-09-2025 ambulatory [facility] Start: 02-04-2025 End: 02-04-2025 [facility] Result Encounter Generic External Data Provider [facility] External Department Unsolicited Start: 02-04-2025 End: 02-04-2025 [facility] Result Encounter Generic External Data Provider [facility] External Department Unsolicited Start: 01-27-2025 End: 01-27-2025 Telephone encounter Eric Trujillo MD Work Phone: [facility] Start: 01-27-2025 End: 01-27-2025 ambulatory [facility] Start: 01-07-2025 End: 01-07-2025 [facility] Result Encounter Eric Trujillo MD Work Phone: [facility] External Department Unsolicited Start: 01-07-2025 End: 01-07-2025 [facility] Result Encounter Eric Trujillo MD Work Phone: [facility] External Department Unsolicited Start: 01-04-2025 End: 01-04-2025 ambulatory [facility] Start: 12-29-2024 End: 12-29-2024 Bamboo flowsheet Eric [...] Start: 09-20-2021 End: 09-21-2021 ambulatory GIORGI DAVIS Facility:[facility] Start: 09-05-2021 End: 09-06-2021 ambulatory GIORGI DAVIS Facility:[facility] Start: 08-28-2021 End: 09-24-[address] ERIC TRUJILLO Facility:[facility] Start: 07-25-2021 End: 08-24-[address] ERIC TRUJILLO Facility:[facility] Start: 06-26-2021 End: 07-24-[address] ERIC TRUJILLO Facility:[facility] Start: 06-11-2021 End: 06-12-2021 ambulatory GIORGI DAVIS Facility:[facility] Start: 05-25-2021 End: 06-22-[address] ERIC TRUJILLO Facility:[facility] Start: 05-08-2021 End: 05-28-2021 ambulatory GIORGI DAVIS Facility:[facility] Start: 04-27-2021 End: 05-25-[address] ERIC TRUJILLO Facility:[facility] Start: 04-20-2021 End: 04-21-[address] JOHN WALEKR Facility:[facility] Start: 04-06-2021 End: 04-07-[address] [...] (1 - 1-dose 75+ series) [facility] Start: 12-29-2025 Medicare Annual Well ness (AWV) Medicare Annual Wellness (AWV) [facility] Healthcare Start: 12-29-2025 Screening for malign ant neoplasm of colon Colorectal Cancer Screening [facility] Comment on above: Postponed from 04/23 (Patient Refused) Start: 07-04-2025 End: 07-04-2025 Patient encounter procedure 07/04/2025 8:00 AM EST Office Visit [facility] [address] [place] [address] Eric Trujillo MD [address] [place] [address] [facility] Start: 04-25-2025 Influenza vaccination Influenz a Vaccine (Season Ended) [facility] Start: 03-25-2025 Influenza vaccination Flu vaccine (# 1) [facility] Start: 01-27-2025 End: 01-27-2026 CT Chest WO contrast CT chest wo IV contrast Imaging Routine Right lower lobe lung mass Expected: 01/27/2025, Expires: 01/27/2026 [facility] Work Phone: Comment on above: Expected: 01/27/2025 , Expires: 01/27/2026 Start: 01-27-2025 End: 01-27-2026 US Thyroid gland US thyroid Imaging Routine Thyroid nodule (CMS/HCC) Expected: 01/27/2025, Expires: 01/27/2026 [facility] Comment on above: Expected: 01/27/2025 , Expires: 01/27/2026 Start: 12-29-2024 End: 12-29-2025 Basic metabolic 1998 panel - Serum or Plasma Basic metabolic panel Lab Routine CKD stage 3a, GFR 45-59 ml/min ([facility]/HCC) Expected: 12/29/2024 (Approximate), Expires: 12/29/2025 [facility] Comment on above: Expected: 12/29/2024 (Approximate), Expires: 12/29/2025 Start: 12-29-2024 End: 12-29-2025 CBC W Auto Differential panel - Blood CBC and differential Lab Routine Encounter for long-term current use of medication Expected: 12/29/2024 (Approximate), Expires: 12/29/2025 [facility] Comment on above: Expected: 12/29/2024 (Approximate), Expires: 12/29/2025 Start: 12-29-2024 End: 12-29-2025 Hemoglobin A1c/Hemoglobin.total in Blood Hemoglobin A1c Lab Routine Prediabetes Expected: 12/29/2024 (Approximate), Expires: 12/29/2025 [facility] Work Phone: Comment on above: Expected: 12/29/2024 (Approximate), Expires: 12/29/2025 Start: 12-29-2024 End: 12-29-2025 Hepatic function 2000 panel - Serum or Plasma Hepatic function panel Lab Routine Encounter for long-term current use of medication Expected: 12/29/2024 (Approximate), Expires: 12/29/2025 [facility] Comment on above: Expected: 12/29/2024 (Approximate), Expires: 12/29/2025 Start: 12-29-2024 End: 12-29-2025 Lipid 1996 panel - Serum or Plasma Lipid panel Lab Routine Dyslipidemia ([facility]/HCC) Expected: 12/29/2024 (Approximate), Expires: 12/29/2025 [facility] Healthcare Comment on above: Expected: 12/29/2024 (Approximate), Expires: 12/29/2025 Start: 12-29-2024 End: 12-29-2025 Thyrotropin [Units/volume] in Serum or Plasma TSH Lab Routine Class 1 obesity due to excess calories with serious comorbidity and body mass index (BMI) of 31.0 to 31.9 in adult Expected: 12/29/2024 (Approximate), Expires: 12/29/2025 [facility] Healthcare Comment on above: Expected: 12/29/2024 (Approximate), Expires: 12/29/2025 Start: 12-29-2024 End: 12-29-2024 Patient encounter procedure 12/29/2024 9:15 AM EDT Office Visit [facility] [address] [place] [address] Eric Trujillo MD [address] [place] [address] Arrived [facility] Comment on above: Arrived Start: 06-20-2024 Screening for malign ant neoplasm of colon [facility] Healthcare Start: 04-25-2024 COVID-19 Vaccine ( season) COVID-19 Vaccine ( season) [facility] Start: 2002 Pneumococcal Vaccine : 65+ Years (1 of 1 - PCV) Pneumococcal Vaccine: 65+ Years (1 of 1 - PCV) [facility] Start: 1971 DTaP/Tdap/Td vaccine (1 - Tdap) DTaP/Tdap/Td vaccine (1 - Tdap) [facility] Start: 1971 Pneumococcal Vaccine : 65+ Years (1 of 2 - PCV) Pneumococcal Vaccine: 65+ Years (1 of 2 - PCV) [facility] Healthcare Start: 1952 Medicare Annual Well ness (AWV) Medicare Annual Wellness (AWV) [facility] Healthcare Start: 1950 Screening for malign ant neoplasm of colon [facility] End: 02-22-2025 Study Interpretation of outside study [facility] Comment on above: 1 Occurrences starti ng 02/22/2025 until 02/22/2025 Payers Date Payer Category Payer Medicare (Managed Care) [employer] [id number] 2024 Medicare [id number] 2022 Private Health Insurance [employer] [place] [id number] 2019 Unknown [id number] 1959 Unknown [id number] 1959 Unknown [id number] 1950 Unknown [id number] 2.16840.1.532662.3.579.2 .647 1950 Unknown [id number] 2.16840.1.805002.3.579.2 .647 1950 Unknown [id number] 2.16.840.1.179331.3.579.2 .647 1950 Unknown [id number] 2.16840.1.006195.3.579.2 .647 1950 Unknown [id number] 2.16.840.1.695308.3.579.2 .593 1952 Unknown [id number] 2.16.840.1.353573.3.579.2 .593 1952 Unknown [id number] 2.16.840.1.166479.3.579.2 .593 1952 Unknown [id number] 2.16.840.1.130398.3.579.2 .593 1952 Unknown [id number] 2.16.840.1.430694.3.579.2 .593 1952 Unknown [id number] 2.16.840.1.025278.3.579.2 .593 1952 Unknown [id number] 2.16.840.1.266366.3.579.2 .593 1952 Unknown [id number] 2.16.840.1.610971.3.579.2 .593 1952 Unknown [id number] 2.16.840.1.832782.3.579.2 .593 1952 Unknown [id number] 2.16.840.1.738385.3.579.2 .593 1952 Unknown [id number] 1950 Unknown [id number] 1950 Unknown [id number] 1950 Unknown [id number] 1950 Unknown [id number] 1950 Unknown [id number] 1950 Unknown [id number] .1259 Social History Date Type Detail Facility Tobacco smoking status NHIS Tobacco smoking consumption unknown [facility] Start: 1950 Sex Assigned At Not on file [facility] Start: 12-29-2024 Gender identity Not on file [facility] Start: 12-29-2024 Tobacco smoking status LAIS Never smoked tobacco [facility] Start: 12-29-2024 Tobacco use and exposure Smokeless tobacco non-user [facility] Start: 12-29-2024 History of Social function [facility] Start: 02-16-2025 Sex Male (finding) [facility]il [facility]ell [facility] Functional Status Date Assessment Result Facility 12-29-2024 Patient Health Quest ionnaire 2 item (PHQ-2) [Reported] [facility] Clinical Notes 05-21-2022 to 01-27-2025 Telephone Encounter [...] Orders in chart, please fax to hospital. [facility] 01-27-2025 Miscellaneous Notes Received fax of CT reports from 07/09/2023 that was previously not available and ordered by another physician. CT shows lung lesion and thyroid nodule. Need to check CT chest and US thyroid. Orders in chart, please fax to hospital. documented in this encounter [facility] 01-27-2025 Note Patient is here toda y for a 1 year follow up. Patient states he has no cardiac complaints or symptoms. Patient states he feels good. Review of Systems Constitutional: Negative. [facility] 01-27-2025 Note Cardiovascular Medic [facility] SUBJECTIVE Chief Complaint Patient presents with [...] is back on atrial flutter with Vpacing/ tununak conducntion. He underwent PVI+ CTI on 09/20/21. [...] BY M (more content not included)... [facility] 12-29-2024 History of Presen t illness Narrative [...] HFrEF (heart failure with reduced ejection fraction) ([facility]/HCC) Edema stable and follow with cardiology. Dyslipidemia [...] Relevant Orders TSH documented in this encounter [facility] 05-21-2022 Miscellaneous Notes Patient: Alexis Baez Date of : 1950 Patient phone number: [phone] Referring Provider for the encounter: Giorgi Davis Requesting Provider: Reason for requesting visit (RFV/signs and symptoms/diagnosis): A Fib Person calling: rp fax Return call to: self Medical Records/Insurance Card scanned into [employer]: No Comments: NA Electronically signed by Cecilia Kwon [facility] Service Spec at 05/21/2022 3:25 PM EDT documented in this encounter [facility] Evaluation note Diagnosis Medicare annual wellness visit, [...] (CMS/HCC) Atrial fibrillation documented in this encounter [facility] HealthcareEvaluation note* Diagnosis Medicare annual wellness visit, [...] lobe lung mass documented in this encounter [facility] HealthcareEvaluation note* Diagnosis Examination for normal comparison for clinical research Examination of participant in clinical trial documented in this encounter [employer] for visit Narrative* Other (Routine) - Pending Review Specialty Diagnoses / Procedures Referred By Contac t Referred To Contact Radiology Diagnoses Examination for normal comparison for clinical research Procedures CT COMPARISON OF OUTSIDE FILMS Cayla Cox MD [address] [place] [address] Phone: tel: fax: Referral ID Status Reason Start Date Expiration Date V isits Requested Visits Authorized [id number] Pending Review 02/22/2025 02/22/2026 1 1 [facility] [employer] for visit Narrative* Other (Routine) - Open Specialty Diagnoses / Procedures Referred By Contac t Referred To Contact Radiology Diagnoses Examination for normal comparison for clinical research Procedures CT COMPARISON OF OUTSIDE FILMS Cayla Cox MD [address] [place] [address] Phone: tel: fax: Referral ID Status Reason Start Date Expiration Date Visits Re quested Visits Authorized [id number] Open 02/22/2025 02/22/2026 1 1 [employer] Summary Purpose Family History No Family History [...] and content) DATE CREATED AUTHOR 10/24/2021 [facility] DATE CREATED AUTHOR AUTHOR'S ORGANIZ ATION 12/24/2021 [facility] p[facility] DATE CREATED AUTHOR AUTHOR'S ORGANIZ ATION 12/31/2024 [facility] EPIC DATE CREATED AUTHOR AUTHOR'S ORGANIZ ATION 02/21/2025 [facility] Source Comments (unrecognize d section and content) In the event this informatio n is protected by the Federal Confidentiality of Alcohol and Drug Abuse Patient Records regulations: The Federal rules restrict any use of the information to criminally investigate or prosecute any alcohol or drug abuse patient.[facility] Reason for Visit (unrecogniz ed section and content) Reason Comments External Referrals/resources Reason Comments Medicare Annual Wellness Visit Subsequen t wellness Care Teams (unrecognized sec tion and content) Supplies Packer Relationship Specialty Start Date End Date Giorgi Davis MD [address] [place] [address] Referring Cardiology 05/16/22 Supplies Packer Relationship Specialty Start Date End Date Eric Trujillo MD [address] [place] [phone] PCP - General Family Medicine 12/29/24 Supplies Packer Relationship Specialty Start Date End Date Eric Trujillo MD [address] [place] [phone] PCP - General Family Medicine 12/29/24 Supplies Packer Relationship Specialty Start Date End Date Eric Trujillo MD [address] [place] [phone] PCP - General Family Medicine 12/29/24 Supplies Packer Relationship Specialty Start Date End Date Eric Trujillo MD [address] [place] [phone] PCP - General Family Medicine 12/29/24 Supplies Packer Relationship Specialty Start Date End Date Eric Trujillo MD [address] [place] [phone] PCP - General Family Medicine 12/29/24 FOR [...] BE BASED ON THE PRIMARY CLINICAL RECORDS. [employer] [facility]. provides no warranty or guarantee of the accuracy or completeness of information in this document.
== END 2025-02-23 07:02 | disposition home or self-care (01) ==
LOC: US 07:01
PROVIDERS: PCP Family Medicine; Visit Provider Family Medicine
DX: E04.1 Nontoxic single thyroid nodule (principal); I71.21 Aneurysm of the ascending aorta, without rupture; I50.22 Chronic systolic (congestive) heart failure; I08.3 Combined rheumatic disorders of mitral, aortic and tricuspid valves
CPT/HCPCS: 76536; 93306